=== PATIENT | female | born 1930 | race Caucasian/White ===

== ENCOUNTER 2019-12-30 01:41 | Inpatient (IN) | payer OTHER ==
--- NOTE | 2019-12-30 01:48 | PDOC ---
Attending Attestation - Resident Resident Name: Samuel Winslow - ED Attending Attestation I have performed the following: I have examined & evaluated the patient, The case was reviewed & discussed with the resident, I agree w/resident's findings & plan - HPI HPI: 12/30/19 02:09 Pt fell in her apartment and she was found by daughter, who has cameras in mom's home. Pt has no complaints. She states that she has dizziness in her head. She has no headache and no pain and no weakness - Physicial Exam PE: 12/30/19 02:10 Afebrile Following commands Heart [id number] Lungs CTAB abd soft NT ND +BS no flank pain ext: no C/C/E neuro weak thoughout, but equally so - Medical Decision Making 12/30/19 02:14 Patient Name: CECE POE THIS IS A PRELIMINARY REPORT DATE OF SERVICE: 2019-12-30 01:49:12 IMAGES: 205 EXAM: HEAD CT (STROKE) HISTORY: Rule out CVA COMPARISON: None. FINDINGS: The ventricular system is midline and nondilated. There is mild cortical atrophy and small vessel ischemic disease There is no bleed, mass, extra-axial fluid collection or mass effect. No skull fracture or skull lesion is identified. The visualized paranasal sinuses and mastoid air cells are clear. IMPRESSION: No evidence of acute pathology. 12/30/19 02:15 Patient Name: CECE POE THIS IS A PRELIMINARY REPORT DATE OF SERVICE: 2019-12-30 01:53:25 IMAGES: 225 EXAM: CERVICAL SPINE CT W/O CONTR HISTORY: Trauma COMPARISON: None. FINDINGS: There is no fracture, subluxation, prevertebral soft tissue swelling. There are moderate degenerative changes and dextroscoliosis.. The lung apices are clear. IMPRESSION: No fracture. 12/30/19 06:27 Trop is elevated; but pt has no chest pain. normal EKG; she has q waves in V5V6 and she has no other abnormalities. We will treat with asa; no need for beta fahad as pt has normal HR and BP. We will not anticoagulate. NIH Stroke Scale - Last Known Well Date/Time & Onset Date Last Known Well: 12/30/19 Time Last Known Well: 08:00 - Initial Evaluation Level of consciousness: Alert Ask patient the month and their age: Answers one correctly Ask patient to open & close eyes; make fist and let go: Obeys both correctly Best gaze (horizontal eye movement): Normal Visual field testing: No visual field loss Facial paresis (Show teeth/raise eyebrows/close eyes tight): Normal symmetrical movement Motor Function: Left Arm: Normal Motor Function: Right Arm: Normal (extends arm 90 (or 45) degrees for 10 seconds without drift Motor Function: Left Leg: Some effort against gravity Motor Function: Right Leg: Some effort against gravity Limb Ataxia: No ataxia Sensory(Use pinprick test arms,legs,trunk,face/side to side): Normal Best language (Describe picture, name items, read sentences): No Aphasia Dysarthria (read several words): Normal articulation Extinction and Inattention: No abnormality - Total Score NIH Stroke Scale Score: 5 Discharge - Discharge Information Problems reviewed: Yes Clinical Impression/Diagnosis: Weakness, Syncope Fall Qualifiers: Encounter type: initial encounter Qualified Code(s): W19.XXXA - Unspecified fall, initial encounter Condition: Guarded - Follow up/Referral - Patient Discharge Instructions - Post Discharge Activity
[2019-12-30] MEDS ORDERED: ACETAMINOPHEN 1000 MG/100 ML VIAL (NON FORMULARY) IVPB ONE (02:09)
--- NOTE | 2019-12-30 02:09 | PDOC ---
History of Present Illness - General Stated Complaint: R/O STROKE Time Seen by Provider: 12/30/19 01:47 History Source: Patient, Old Records Exam Limitations: No Limitations - History of Present Illness Initial Comments: 12/30/19 02:08 Rosalba Rachel is an 89F withP PMH HTN, NIDDM, CAD s/p stenting, presenting with fall and prolonged time down. patient lives alone and ambulates with walker, highly independent has video camera in home so family can monitor daughter noticed that patient fell around 5PM after coming out from bathroom down for ~5-6 hours since then per EMS patient found down with R-sided weakness and hypertensive to SBP 180s confused patient does not remember event but reports she feels nauseated and legs weak reports PMH HTN and NIDDM denies chest pain, SOB, abd pain, urinary sx no LIMA, vision changes, neck pain R knee hurts NIH Stroke Scale - Last Known Well Date/Time & Onset Date Last Known Well: 12/29/19 Time Last Known Well: 17:00 - Initial Evaluation Level of consciousness: Alert Ask patient the month and their age: Answers both correctly Ask patient to open & close eyes; make fist and let go: Obeys both correctly Best gaze (horizontal eye movement): Normal Visual field testing: No visual field loss Facial paresis (Show teeth/raise eyebrows/close eyes tight): Normal symmetrical movement Motor Function: Left Arm: Normal Motor Function: Right Arm: Normal (extends arm 90 (or 45) degrees for 10 seconds without drift Motor Function: Left Leg: Normal (extends leg 30 degrees for 5 seconds without drift) Motor Function: Right Leg: Normal (extends leg 30 degrees for 5 seconds without drift) Limb Ataxia: No ataxia Sensory(Use pinprick test arms,legs,trunk,face/side to side): Normal Best language (Describe picture, name items, read sentences): No Aphasia Dysarthria (read several words): Normal articulation Extinction and Inattention: No abnormality - Total Score NIH Stroke Scale Score: 0 Past History - Medical History Allergies/Adverse Reactions: Allergies Allergy/AdvReac Type Severity Reaction Status Date / Time Penicillins Allergy itching Verified 12/30/19 02:10 hives Home Medications: Ambulatory Orders Atorvastatin Ca [Lipitor] 40 mg PO HS #0 tablet 04/03/13 Calcium Carbonate/Vitamin D3 [Oyst-Bebo-D 500 mg Tablet] 1 each PO BID #0 tablet 04/03/13 Clopidogrel Bisulfate [Plavix -] 75 mg PO DAILY #0 tablet 04/03/13 Diclofenac Sodium [Voltaren] 100 gm TP BID #0 gel..gram. 04/03/13 Glimepiride 4 mg PO DAILY #0 tablet 04/03/13 Lisinopril [Prinivil] 10 mg PO DAILY #0 tablet 04/03/13 Meloxicam [Mobic -] 15 mg PO DAILY #0 tablet 04/03/13 Olopatadine HCl [Pataday] 1 drop OU DAILY #0 drops 04/03/13 Omeprazole [Prilosec (RX)] 20 mg PO DAILY #0 capsule.dr 04/03/13 Ranolazine [Ranexa] 500 mg PO BID #0 tab.er.12h 04/03/13 Saxagliptin HCl/Metformin HCl [Kombiglyze Xr 5-1,000 mg Tab] 1 each PO DAILY #0 tbmp.24hr 04/03/13 Cancer: Yes Cardiac Disorders: Yes Diabetes: Yes HTN: Yes Hypercholesterolemia: Yes - Surgical History Cholecystectomy: Yes - Psycho-Social/Smoking History Smoking Status: No Smoking History: Unknown if ever smoked Number of Cigarettes Smoked Daily: 0 Review of Systems - Review of Systems Able to Perform ROS?: Yes Constitutional: Yes: Weakness HEENTM: No: Symptoms Reported Respiratory: No: Symptoms reported Cardiac (ROS): Yes: Syncope. No: Chest Pain, Lightheadedness, Palpitations ABD/GI: Yes: Nausea, Poor Appetite, Poor Fluid Intake. No: Constipated, Diarrhea, Vomiting : No: Symptoms Reported Musculoskeletal: Yes: Joint Pain, Muscle Weakness. No: Back Pain Integumentary: No: Bruising, Flushing, Lesions, Lumps Neurological: Yes: Weakness, Dizziness. No: Headache, Numbness, Paresthesia Endocrine: No: Symptoms Reported Hematologic/Lymphatic: No: Symptoms Reported All Other Systems: Reviewed and Negative *Physical Exam - Physical Exam General Appearance: Yes: Nourished, Appropriately Dressed, Obese, Other (resting in bed, responsive to commands, in NAD). No: Apparent Distress HEENT: positive: EOMI, FRANK, Normal Voice, Symmetrical, Pharynx Normal, Hearing Grossly Normal. negative: Scleral Icterus (R), Scleral Icterus (L), Pharyngeal Erythema, Tonsillar Exudate, Tonsillar Erythema Neck: positive: Normal Thyroid, Supple. negative: Tender, Rigid, Lymphadenopathy (R), Lymphadenopathy (L), Tender lateral, Tender midline Respiratory/Chest: positive: Lungs Clear, Normal Breath Sounds. negative: Chest Tender, Respiratory Distress, Accessory Muscle Use, Crackles, Rales, Rhonchi, Stridor, Wheezing Cardiovascular: positive: Regular Rhythm, Regular Rate. negative: Murmur Gastrointestinal/Abdominal: positive: Normal Bowel Sounds, Flat, Soft. negative: Tender, Organomegaly, Pulsatile Mass, Distended, Guarding, Rebound, Tenderness Musculoskeletal: positive: Normal Inspection. negative: CVA Tenderness, Decreased Range of Motion, Vertebral Tenderness Extremity: positive: Normal Capillary Refill, Normal Inspection, Normal Range of Motion, Pelvis Stable. negative: Tender, Pedal Edema, Swelling, Calf Tenderness Integumentary: positive: Normal Color, Dry, Warm Neurologic: positive: supervisor assembly and packing II-XII NML intact, Fully Oriented, Alert, Normal Mood/Affect, Normal Response, Finger to Nose (normal). negative: Motor Strength 5/5 (BLE: 4/5 strength at hip flexors, 5/5 knees and ankles, sensation intact to LT, full ROM. BUE: sensation intact to LT, motor 5/5, full ROM), Facial Droop, Sensory Deficit, Confused, Disoriented ED Treatment Course - LABORATORY CBC & Chemistry Diagram: 12/30/19 11:13 12/30/19 11:13 - RADIOLOGY Radiology Studies Ordered: Category Date Time Status HEAD CT (STROKE) [CT] Stat CT Scan 12/30/19 01:47 Taken Radiograph Interpretation: 12/30/19 02:33 EXAM: HEAD CT (STROKE) HISTORY: Rule out CVA COMPARISON: None. FINDINGS: The ventricular system is midline and nondilated. There is mild c ortical atrophy and small vessel ischemic disease There is no bleed, mass, extra-axial fluid collect ion or mass effect. No skull fracture or skull lesion is identified. The visualized paranasal sinuse s and mastoid air cells are clear. IMPRESSION: No evidence of acute pathology. EXAM: CERVICAL SPINE CT W/O CONTR HISTORY: Trauma COMPARISON: None. FINDINGS: There is no fracture, subluxation, prevertebral soft tissue swelling. There are moderate degenerative changes and dextroscoliosis.. The lung apices are clear. IMPRESSION: No fracture. Medical Decision Making - Medical Decision Making 12/30/19 02:12 Patient presents with weakness and fall, concern for CVA given PMH and exam. Code [place] initiated, patient brought to CT for CT head and c-spine. Initial NIHSS = 0. Getting CVA labs, placing on quality assurance monitor, BGM. Likely has infectious etiology vs. ACS vs. CVA as source of weakness and dizziness, evaluating broadly Will ultimately need admission for syncopal episode and fall with prolonged time down. 12/30/19 03:58 ECG NSR with LAFB, Hr 90, QTc 455, no YENY/D or TWI. CXR no acute process. Labs notable for: - WBC 10.8 - CK 525 consistent with time down - UA +protein/blood/ketones - trop 4.46, concerning for NSTEMI vs. demand ischemia Discussed case with CONCILIATOR Abdiel, pending CXR and covid-19, but accepts for tele admit for syncope under Dr. Coon. Discharge - Discharge Information Problems reviewed: Yes Clinical Impression/Diagnosis: Weakness Fall Qualifiers: Encounter type: initial encounter Qualified Code(s): W19.XXXA - Unspecified fall, initial encounter Syncope Qualifiers: Syncope type: unspecified Qualified Code(s): R55 - Syncope and collapse Condition: Guarded - Admission Yes - Follow up/Referral - Patient Discharge Instructions - Post Discharge Activity
[2019-12-30 02:38] LABS: BASO % 0.6 % (0-2.0); HEMOGLOBIN 16.2 GM/dL (10.7-15.3); LYMPH % 5.9 % (8-40); MCH 29.6 pg (25.7-33.7); MCHC 33.7 g/dl (32.0-36.0); MEAN CELL VOLUME 87.9 fl (80-96); MEAN PLT VOLUME 9.5 fl (7.5-11.1); MONO % 11.7 % (3.8-10.2); NEUT % 81.8 % (42.8-82.8); PLATELET COUNT 250 K/MM3 (134-434); RBC 5.46 M/mm3 (3.60-5.2); RDW 15.2 % (11.6-15.6); WHITE BLOOD COUNT 10.8 K/mm3 (4.0-10.0)
[2019-12-30] MEDS ORDERED: ACETAMINOPHEN INJECTION 100 ML IVPB ONE (02:38)
[2019-12-30 02:46] LABS: INR 1.03 (0.83-1.09); PROTHROMBIN TIME (PATIENT) 12.1 SEC (9.7-13.0)
[2019-12-30 02:49] LABS: ACTIVATED PTT 31.6 SECONDS (25.2-36.5)
[2019-12-30 02:53] LABS: EPI CELLS 10 /uL (0-25.1); HYALINE CASTS 2 /uL (0-3.1); URINE APPEARANCE CLEAR; URINE BACTERIA 1 /uL (0-1359); URINE BILIRUBIN NEGATIVE (NEGATIVE); URINE COLOR YELLOW; URINE GLUCOSE (UA) 1+ (NEGATIVE); URINE KETONE 1+ (NEGATIVE); URINE LEUK ESTERASE NEGATIVE (NEGATIVE); URINE NITRITE NEGATIVE (NEGATIVE); URINE PROTEIN 2+ (NEGATIVE); URINE RBC 2 /uL (0-23.9); URINE UROBILINOGEN 0.2 mg/dL (0.2-1.0); URINE WBC 1 /uL (0-25.8)
[2019-12-30 02:59] LABS: ALBUMIN 3.8 g/dl (3.4-5.0); BILIRUBIN,TOTAL 0.4 mg/dL (0.2-1); CALCIUM 8.9 mg/dL (8.5-10.1); CREATININE 0.9 mg/dL (0.55-1.3); TOT PROT 7.6 g/dl (6.4-8.2)
--- NOTE | 2019-12-30 03:54 | HP ---
Admitting History and Physical - Primary Care Physician PCP: Donell Plummer - Admission Chief Complaint: Syncope, Fall History of Present Illness: This is a 89 y/o female with a significant past medical history of HTN, CAD s/p stents, NIDDM, Renal Calculi, OA. Who presents to the ED via ambulance for syncope, s/p fall at home. Patient's daughter was at bedside reports that the patient lives [place] and ambulates with a walker was noted to be on the floor at home via video monitor. The daughter called 911 to have her mother brought in for evaluation. Per the daughter the patient does not recall how she ended up on the floor, but reports having right temporal headache and right knee pain. Per the daughter, patient denies lightheadedness, numbness, CP, palpitations, SOB, fever, chills, cough, AP, N/V/D, constipation, melena, hematochezia, dysuria. Sh e denies patient having sick contacts or recent travel. History Source: Patient, Family Member Limitations to Obtaining History: Language Barrier (Uzbek) - Past Medical History Cardiovascular: Yes: CAD, HTN Renal/: Yes: Renal Calculi ...: No Musculoskeletal: Yes: Osteoarthritis Endocrine: Yes: Diabetes Mellitus - Past Surgical History Past Surgical History: Yes: Cholecystectomy, , Stent Additional Past Surgical History: Lithotripsy - Smoking History Smoking history: Never smoked Aproximately how many cigarettes per day: 0 - Alcohol/Substance Use Hx Alcohol Use: No History of Substance Use: reports: None - Social History Usual Living Arrangement: Yes: Alone ADL: Independent (ambulates w/walker) History of Recent Travel: No Home Medications - Allergies Allergies/Adverse Reactions: Allergies Allergy/AdvReac Type Severity Reaction Status Date / Time Penicillins Allergy itching Verified 12/30/19 02:10 hives - Home Medications Home Medications: Ambulatory Orders Atorvastatin Ca [Lipitor] 40 mg PO HS #0 tablet 04/03/13 Calcium Carbonate/Vitamin D3 [Oyst-Bebo-D 500 mg Tablet] 1 each PO BID #0 tablet 04/03/13 Clopidogrel Bisulfate [Plavix -] 75 mg PO DAILY #0 tablet 04/03/13 Diclofenac Sodium [Voltaren] 100 gm TP BID #0 gel..gram. 04/03/13 Glimepiride 4 mg PO DAILY #0 tablet 04/03/13 Lisinopril [Prinivil] 10 mg PO DAILY #0 tablet 04/03/13 Meloxicam [Mobic -] 15 mg PO DAILY #0 tablet 04/03/13 Olopatadine HCl [Pataday] 1 drop OU DAILY #0 drops 04/03/13 Omeprazole [Prilosec (RX)] 20 mg PO DAILY #0 capsule.dr 04/03/13 Ranolazine [Ranexa] 500 mg PO BID #0 tab.er.12h 04/03/13 Saxagliptin HCl/Metformin HCl [Kombiglyze Xr 5-1,000 mg Tab] 1 each PO DAILY #0 tbmp.24hr 04/03/13 Unobtainable Home Med List 0 dose .ROUTE UTDICT #0 04/03/13 levoFLOXacin [Levaquin -] 250 mg PO DAILY #7 tablet 04/03/13 Home Medications (free text): Metformin 500mg po BID. Januvia 50mg po QD. Atorvastatin 40mg po QD. Senna 8.6mg po QD. Ferrous Sulfate 325mg po QD. medications verified with pt's daughter Family Medical History Family History: Unremarkable Review of Systems - Review of Systems Constitutional: reports: No Symptoms Eyes: reports: No Symptoms HENT: reports: No Symptoms Neck: reports: No Symptoms Cardiovascular: reports: No Symptoms Respiratory: reports: No Symptoms Gastrointestinal: reports: No Symptoms Genitourinary: reports: No Symptoms Breasts: reports: No Symptoms Reported Musculoskeletal: reports: Joint Pain (right knee) Integumentary: reports: No Symptoms Neurological: reports: Headache, Syncope, Unsteady Gait Endocrine: reports: No Symptoms Hematology/Lymphatic: reports: No Symptoms Psychiatric: reports: No Symptoms Pain Intensity: 6 Physical Examination Vital Signs: Vital Signs Temperature 98.6 F 12/30/19 02:06 Pulse Rate 93 H 12/30/19 02:06 Respiratory Rate 20 12/30/19 02:06 Blood Pressure 118/56 L 12/30/19 02:06 O2 Sat by Pulse Oximetry (%) 95 12/30/19 02:06 Constitutional: Yes: Well Nourished, No Distress, Calm, Obese Eyes: Yes: WNL, Conjunctiva Clear, EOM Intact, PERRL HENT: Yes: WNL, Atraumatic, Normocephalic Neck: Yes: WNL, Supple, Trachea Midline Cardiovascular: Yes: Regular Rate and Rhythm, S1, S2 Respiratory: Yes: WNL, Regular, CTA Bilaterally Gastrointestinal: Yes: WNL, Normal Bowel Sounds, Soft, Abdomen, Obese ...Rectal Exam: Yes: Deferred Renal/: Yes: WNL Breast(s): Yes: WNL Musculoskeletal: Yes: Other (right knee pain) Extremities: Yes: WNL Edema: No Peripheral Pulses WNL: Yes Neurological: Yes: Alert, Oriented, Cran Nerves II-XII Intact ...Motor Strength: WNL Psychiatric: Yes: WNL, Alert, Oriented Labs: CBC, BMP 12/30/19 02:15 12/30/19 02:15 Laboratory Results - last 24 hr 12/30/19 12/30/19 12/30/19 02:15 02:15 02:15 WBC 10.8 H RBC 5.46 H Hgb 16.2 H Hct 48.0 H D MCV 87.9 MCH 29.6 MCHC 33.7 RDW 15.2 Plt Count 250 MPV 9.5 Absolute Neuts (auto) 8.9 H Neutrophils % 81.8 Lymphocytes % 5.9 L D Monocytes % 11.7 H D Eosinophils % 0.0 D Basophils % 0.6 Nucleated RBC % 0 PT with INR 12.10 INR 1.03 PTT (Actin FS) 31.6 Sodium Potassium Chloride Carbon Dioxide Anion Gap BUN Creatinine Est GFR (CKD-EPI)AfAm Est GFR (CKD-EPI)NonAf Random Glucose Lactic Acid Calcium Total Bilirubin AST ALT Alkaline Phosphatase Creatine Kinase Creatine Kinase Index CK-MB (CK-2) Troponin I Total Protein Albumin Triglycerides Cancelled Cholesterol Cancelled Total LDL Cholesterol Cancelled HDL Cholesterol Cancelled Urine Color Urine Appearance Urine pH Ur Specific Hardy Urine Protein Urine Glucose (UA) Urine Ketones Urine Blood Urine Nitrite Urine Bilirubin Urine Urobilinogen Ur Leukocyte Esterase Urine WBC (Auto) Urine RBC (Auto) Urine Casts (Auto) U Epithel Cells (Auto) Urine Bacteria (Auto) Blood Type Antibody Screen 12/30/19 12/30/19 12/30/19 02:15 02:15 02:15 WBC RBC Hgb Hct MCV MCH MCHC RDW Plt Count MPV Absolute Neuts (auto) Neutrophils % Lymphocytes % Monocytes % Eosinophils % Basophils % Nucleated RBC % PT with INR INR PTT (Actin FS) Sodium 135 L Potassium 4.0 Chloride 102 Carbon Dioxide 24 Anion Gap 9 BUN 17.0 Creatinine 0.9 Est GFR (CKD-EPI)AfAm 66.63 Est GFR (CKD-EPI)NonAf 57.49 Random Glucose 278 H Lactic Acid 1.9 Calcium 8.9 Total Bilirubin 0.4 AST 39 H ALT 20 Alkaline Phosphatase 132 H Creatine Kinase 525 H Creatine Kinase Index 2.5 CK-MB (CK-2) 13.6 H Troponin I 4.46 H* Total Protein 7.6 Albumin 3.8 Triglycerides 122 Cholesterol 157 Total LDL Cholesterol 84 HDL Cholesterol 64 H Urine Color Urine Appearance Urine pH Ur Specific Hardy Urine Protein Urine Glucose (UA) Urine Ketones Urine Blood Urine Nitrite Urine Bilirubin Urine Urobilinogen Ur Leukocyte Esterase Urine WBC (Auto) Urine RBC (Auto) Urine Casts (Auto) U Epithel Cells (Auto) Urine Bacteria (Auto) Blood Type A POSITIVE Antibody Screen Negative 12/30/19 02:36 WBC RBC Hgb Hct MCV MCH MCHC RDW Plt Count MPV Absolute Neuts (auto) Neutrophils % Lymphocytes % Monocytes % Eosinophils % Basophils % Nucleated RBC % PT with INR INR PTT (Actin FS) Sodium Potassium Chloride Carbon Dioxide Anion Gap BUN Creatinine Est GFR (CKD-EPI)AfAm Est GFR (CKD-EPI)NonAf Random Glucose Lactic Acid Calcium Total Bilirubin AST ALT Alkaline Phosphatase Creatine Kinase Creatine Kinase Index CK-MB (CK-2) Troponin I Total Protein Albumin Triglycerides Cholesterol Total LDL Cholesterol HDL Cholesterol Urine Color Yellow Urine Appearance Clear Urine pH 5.0 Ur Specific Hardy 1.023 Urine Protein 2+ H Urine Glucose (UA) 1+ H Urine Ketones 1+ H Urine Blood Negative Urine Nitrite Negative Urine Bilirubin Negative Urine Urobilinogen 0.2 Ur Leukocyte Esterase Negative Urine WBC (Auto) 1 Urine RBC (Auto) 2 Urine Casts (Auto) 2 U Epithel Cells (Auto) 10 Urine Bacteria (Auto) 1 Blood Type Antibody Screen Imaging - Results Chest X-ray: Pending X-ray: Pending (Right Knee) Cat Scan: Image Reviewed EKG: Image Reviewed Problem List - Problems (1) Syncope Assessment/Plan: Likely secondary to arrhythmia Head CT- neg ICH Cardiac monitoring Appreciate Cardiology consult Serial Enzymes elevated x1, likely secondary to rhabdo vs ACS, will trend Carotid Doppler r/o Stenosis Neuro checks Monitor CBC, CMP Check Mg Fall Precautions Code(s): R55 - SYNCOPE AND COLLAPSE (2) Elevated troponin Assessment/Plan: r/o ACS vs Rhabdomyolosis Continue cardiac monitoring Cardiology consult Serial Enzymes EKG reviewed Chest Xray-pending Asa given in ED, will continue Lipitor Code(s): R79.89 - OTHER SPECIFIED ABNORMAL FINDINGS OF BLOOD CHEMISTRY (3) Rhabdomyolysis Assessment/Plan: Likely secondary to fall Gentle IVF Serial Enzymes Cardiology consult EKG reviewed Continue cardiac monitoring Code(s): M62.82 - RHABDOMYOLYSIS (4) Fall Assessment/Plan: r/o arrhythmia vs mechanical C Spine CT- neg fx Head CT- neg ICH Right Knee Xray- pending Fall Precautions PT eval Monitor vitals Monitor CBC, CMP Code(s): W19.XXXA - UNSPECIFIED FALL, INITIAL ENCOUNTER Qualifiers: Encounter type: initial encounter Qualified Code(s): W19.XXXA - Unspecified fall, initial encounter (5) Right knee pain Assessment/Plan: see above Code(s): M25.561 - PAIN IN RIGHT KNEE (6) CAD (coronary artery disease) Assessment/Plan: s/p Stents Continue Asa, Lipitor EKG- reviewed Code(s): I25.10 - ATHSCL HEART DISEASE OF [place] CORONARY ARTERY W/O ANG PCTRS (7) HTN (hypertension) Assessment/Plan: stable No current home med Monitor BP Low Na Diet Code(s): I10 - ESSENTIAL (PRIMARY) HYPERTENSION (8) Diabetes mellitus Assessment/Plan: stable BGMs ISS Hold Metformin for now Monitor CMP HgbA1c in am Code(s): E11.9 - TYPE 2 DIABETES MELLITUS WITHOUT COMPLICATIONS (9) Osteoarthritis Assessment/Plan: Stable Tylenol prn Code(s): M19.90 - UNSPECIFIED OSTEOARTHRITIS, UNSPECIFIED SITE (10) Encounter for screening laboratory testing for COVID-19 virus Assessment/Plan: Low Risk COVID PCR-pending Isolation Precautions Code(s): Z11.59 - ENCOUNTER FOR SCREENING FOR OTHER VIRAL DISEASES Assessment/Plan This is a 89 y/o female with a significant past medical history of HTN, CAD s/p stents, NIDDM, Renal Calculi, OA. Admitted to Telemetry for Syncope, Troponinemia, Rhabdomyolosis, s/p Fall for further evaluation of their emergent condition. Plan: See Problem List FEN PO fluids as tolerated Replete lytes prn Low Na, Diabetic Diet DVT ppx OOB SCDs Lovenox SQ Dispo: Requires Inpatient Care Visit type - Medication Review Med list reviewed for High Risk Meds patients 65 and older: Yes - Emergency Visit Emergency Visit: Yes ED Registration Date: 12/30/19 Care time: The patient presented to the Emergency Department on the above date and was hospitalized for further evaluation of their emergent condition. - New Patient This patient is new to me today: Yes Date on this admission: 12/30/19 - Critical Care Critical Care patient: No
[2019-12-30] MEDS ORDERED: SODIUM CHLORIDE 0.9% 500 ML INFUS.BAG IV ONE (03:59)
[2019-12-30] MEDS ORDERED: ASPIRIN 81 MG CHEWABLE TABLETS PO ONE (04:21)
[2019-12-30] MEDS ORDERED: ASPIRIN 81 MG CHEWABLE TABLETS ONE ×2 (04:27→11:08)
--- NOTE | 2019-12-30 04:31 | PDOC ---
*Physical Exam - Vital Signs Last Vital Signs Temp Pulse Resp BP Pulse Ox 98.6 F 93 H 20 118/56 L 95 12/30/19 02:06 12/30/19 02:06 12/30/19 02:06 12/30/19 02:06 12/30/19 02:06 ED Treatment Course - LABORATORY CBC & Chemistry Diagram: 12/30/19 02:15 12/30/19 02:15 - ADDITIONAL ORDERS Additional order review: Laboratory Results 12/30/19 12/30/19 12/30/19 02:36 02:15 02:15 PT with INR INR PTT (Actin FS) Sodium Potassium Chloride Carbon Dioxide Anion Gap BUN Creatinine Est GFR (CKD-EPI)AfAm Est GFR (CKD-EPI)NonAf Random Glucose Lactic Acid 1.9 Calcium Total Bilirubin AST ALT Alkaline Phosphatase Creatine Kinase Creatine Kinase Index CK-MB (CK-2) Troponin I Total Protein Albumin Triglycerides Cholesterol Total LDL Cholesterol HDL Cholesterol Urine Color Yellow Urine Appearance Clear Urine pH 5.0 Ur Specific [place] 1.023 Urine Protein 2+ H Urine Glucose (UA) 1+ H Urine Ketones 1+ H Urine Blood Negative Urine Nitrite Negative Urine Bilirubin Negative Urine Urobilinogen 0.2 Ur Leukocyte Esterase Negative Urine WBC (Auto) 1 Urine RBC (Auto) 2 Urine Casts (Auto) 2 U Epithel Cells (Auto) 10 Urine Bacteria (Auto) 1 Blood Type A POSITIVE Antibody Screen Negative 12/30/19 12/30/19 12/30/19 02:15 02:15 02:15 PT with INR 12.10 INR 1.03 PTT (Actin FS) 31.6 Sodium 135 L Potassium 4.0 Chloride 102 Carbon Dioxide 24 Anion Gap 9 BUN 17.0 Creatinine 0.9 Est GFR (CKD-EPI)AfAm 66.63 Est GFR (CKD-EPI)NonAf 57.49 Random Glucose 278 H Lactic Acid Calcium 8.9 Total Bilirubin 0.4 AST 39 H ALT 20 Alkaline Phosphatase 132 H Creatine Kinase 525 H Creatine Kinase Index 2.5 CK-MB (CK-2) 13.6 H Troponin I 4.46 H* Total Protein 7.6 Albumin 3.8 Triglycerides 122 Cancelled Cholesterol 157 Cancelled Total LDL Cholesterol 84 Cancelled HDL Cholesterol 64 H Cancelled Urine Color Urine Appearance Urine pH Ur Specific [place] Urine Protein Urine Glucose (UA) Urine Ketones Urine Blood Urine Nitrite Urine Bilirubin Urine Urobilinogen Ur Leukocyte Esterase Urine WBC (Auto) Urine RBC (Auto) Urine Casts (Auto) U Epithel Cells (Auto) Urine Bacteria (Auto) Blood Type Antibody Screen 12/30/19 02:15 RBC 5.46 H MCV 87.9 MCHC 33.7 RDW 15.2 MPV 9.5 Neutrophils % 81.8 Lymphocytes % 5.9 L D Monocytes % 11.7 H D Eosinophils % 0.0 D Basophils % 0.6 - RADIOLOGY Radiology Studies Ordered: Category Date Time Status CERVICAL SPINE CT W/O CONTR [CT] Stat CT Scan 12/30/19 01:53 Taken - Medications Given in the ED: ED Medications Discontinued Medications Generic Name Dose Route Start Last Admin Trade Name Freq PRN Reason Stop Dose Admin Acetaminophen 1,000 mg 12/30/19 02:09 12/30/19 02:42 Ofirmev Injection - IVPB 12/30/19 02:10 1,000 mg ONCE ONE Administration Sodium Chloride 500 ml 12/30/19 03:59 12/30/19 04:19 Normal Saline - IV 12/30/19 04:00 500 ml ONCE ONE Administration Medical Decision Making - Medical Decision Making Elevated tpn 4.46, 324mg ASA ordered Page placed to Dr. Fitzgerald, cardiology, regarding patient's abnormal lab value Discussed case with Dr. Thomason who will evaluate the patient 12/30/19 04:30 Discharge - Discharge Information Problems reviewed: Yes Clinical Impression/Diagnosis: Weakness, Syncope Fall Qualifiers: Encounter type: initial encounter Qualified Code(s): W19.XXXA - Unspecified fall, initial encounter Condition: Guarded - Follow up/Referral - Patient Discharge Instructions - Post Discharge Activity
[2019-12-30] MEDS ORDERED: HEPARIN NA (PORCINE) 5,000 UNITS/ML 1ML VIAL SQ SCH (10:15)
[2019-12-30] MEDS ORDERED: LISINOPRIL 10 MG TABLET PO SCH (10:15)
--- NOTE | 2019-12-30 10:15 | PN ---
Progress Note, Physician Chief Complaint: Syncope Fall Elevated troponin DM2 History of Present Illness: 89 year old female with history of CAD, DM2, HTN,HL, dementia?, previous history of cardiac stents post [place], came in to [facility] ER via EMS after she was found to be on the floor observed by her daughter on a video surveillance. Upon evaluation, pt is a x o 2, doesn't recall any events on how she ended up on the floor, is a poor historian. Seen by Cardiology in ER for syncope and elevated trops CK 525 Trops 4.46> 2.96>2.36 EKG (1st) sinus, lafb, anterolateral infarct, no acute st changes EKG (2nd) with new anterior TWI Started on Heparin drip Pt denies any chest pain, SOB, light headed ness or dizziness - Current Medication List Current Medications: Active Medications Aspirin (Asa -) 81 mg PO DAILY [facility] Atorvastatin Calcium (Lipitor -) 40 mg PO HS [facility] Calcium Carbonate/Cholecalciferol (Os-Bebo 500+D -) 1 tab PO BID [facility] Clopidogrel Bisulfate (Plavix -) 75 mg PO DAILY [facility] Lisinopril (Prinivil) 10 mg PO DAILY [facility] Ranolazine (Ranexa -) 500 mg PO BID [facility] - Objective Vital Signs: Vital Signs Temperature 97.9 F 12/30/19 09:23 Pulse Rate 74 12/30/19 09:23 Respiratory Rate 20 12/30/19 09:23 Blood Pressure 114/60 12/30/19 09:23 O2 Sat by Pulse Oximetry (%) 96 12/30/19 08:26 Constitutional: Yes: Well Nourished, No Distress, Calm Cardiovascular: Yes: Regular Rate and Rhythm Respiratory: Yes: Regular, CTA Bilaterally Gastrointestinal: Yes: Normal Bowel Sounds, Soft, Abdomen, Obese Genitourinary: Yes: WNL Musculoskeletal: Yes: Muscle Weakness Extremities: Yes: WNL Edema: No Peripheral Pulses WNL: Yes Neurological: Yes: Alert, Confusion Psychiatric: Yes: Alert Labs: CBC, BMP 12/30/19 02:15 12/30/19 02:15 INR, PTT INR 1.03 (0.83-1.09) 12/30/19 02:15 Problem List - Problems (1) Presence of stent in coronary artery in patient with coronary artery disease Assessment/Plan: -Continue plavix + ASA + Statin -Start Heparin drip Problems reviewed: Yes Code(s): I25.10 - ATHSCL HEART DISEASE OF [place] CORONARY ARTERY W/O ANG PCTRS; Z95.5 - PRESENCE OF CORONARY ANGIOPLASTY IMPLANT AND GRAFT (2) Diabetes mellitus Assessment/Plan: -Check A1c -BGM AC HS -ISS -Diabetic low sodium diet Problems reviewed: Yes Code(s): E11.9 - TYPE 2 DIABETES MELLITUS WITHOUT COMPLICATIONS (3) Elevated troponin Assessment/Plan: -Continue plavix + ASA + Statin -Start Heparin drip -Telemetry -CK 525/Trops 4.46> 2.96>2.36 -EKG (1st) sinus, lafb, anterolateral infarct, no acute st changes -EKG (2nd) with new anterior TWI -Echo -Decrease lisinopril to 5 mg po daily -Start Toprol XL at 25 mg po daily Problems reviewed: Yes Code(s): R79.89 - OTHER SPECIFIED ABNORMAL FINDINGS OF BLOOD CHEMISTRY (4) Fall Assessment/Plan: -safety precautions -Physical therapy -Check UA/UC Problems reviewed: Yes Code(s): W19.XXXA - UNSPECIFIED FALL, INITIAL ENCOUNTER Qualifiers: Encounter type: initial encounter Qualified Code(s): W19.XXXA - Unspecified fall, initial encounter (5) HTN (hypertension) Assessment/Plan: -Resume lisinopril at 5 mg po daily -Toprol 25 mg po daily Problems reviewed: Yes Code(s): I10 - ESSENTIAL (PRIMARY) HYPERTENSION Assessment/Plan See problem list
[2019-12-30] MEDS: CALCIUM 500MG/VIT-D 200 UNITS COMBO TABLET (FP) PO SCH ×2 (10:30→21:14)
[2019-12-30] MEDS: RANOLAZINE E.R. 500 MG TABLET (FP) PO SCH ×2 (10:30→21:14)
[2019-12-30] MEDS: CLOPIDOGREL BISULFATE 75 MG TABLET (FP) PO SCH (10:30)
[2019-12-30] MEDS ORDERED: HEPARIN NA (PORCINE) 5,000 UNITS/ML 1ML VIAL ONE ×2 (11:08→14:41)
[2019-12-30] MEDS ORDERED: HEPARIN NA (PORCINE) 5,000 UNITS/ML 1ML VIAL IVPUSH PRN ×2 (14:18)
[2019-12-30] MEDS ORDERED: HEPARIN INFUSION - 25,000 UNITS/500 ML INFUS.BAG IVPB ONE (14:42)
[2019-12-30] MEDS: HEPARIN INFUSION - 25,000 UNITS/500 ML INFUS.BAG IVPB SCH (14:57)
--- NOTE | 2019-12-30 15:56 | CON.CARD ---
Consult Consult Specialty:: cardiology Referred by:: lucila Reason for Consultation:: nstemi - History of Present Illness Chief Complaint: found on floor History of Present Illness: 89 year old female with a pmhx of dementia, htn, cad s/p stents 7-8 yrs ago at [facility], dm, and arthritis who was found on floor at home. As per daughter, patient lives alone but they have cameras set up and they noticed that the mother was on the floor so daughter called 911. Patient with no complaints. Does not recall event. Says she was sleeping than woke up at the hospital. Patient appears comfortable and is very pleasant but poor historian. No focal deficits. CTH no acute m/s/b. CXR no acute lung process. CK 500s Trops 4s EKG (1st) sinus, lafb, anterolateral infarct, no acute st changes EKG (2nd) with new anterior TWI - History Source History Provided By: Family Member, Medical Record - Past Medical History Cardio/Vascular: Yes: CAD, HTN Renal/: Yes: Renal Calculi ...: No Musculoskeletal: Yes: Osteoarthritis Endocrine: Yes: Diabetes Mellitus - Past Surgical History Past Surgical History: Yes: Cholecystectomy, , Stent - Alcohol/Substance Use Hx Alcohol Use: No History of Substance Use: reports: None - Smoking History Smoking history: Never smoked Aproximately how many cigarettes per day: 0 - Social History ADL: Independent (ambulates w/walker) History of Recent Travel: No Home Medications - Allergies Allergies/Adverse Reactions: Allergies Allergy/AdvReac Type Severity Reaction Status Date / Time Penicillins Allergy itching Verified 12/30/19 02:10 hives - Home Medications Home Medications: Ambulatory Orders Atorvastatin Ca [Lipitor] 40 mg PO HS #0 tablet 04/03/13 Calcium Carbonate/Vitamin D3 [Oyst-Bebo-D 500 mg Tablet] 1 each PO BID #0 tablet 04/03/13 Clopidogrel Bisulfate [Plavix -] 75 mg PO DAILY #0 tablet 04/03/13 Diclofenac Sodium [Voltaren] 100 gm TP BID #0 gel..gram. 04/03/13 Glimepiride 4 mg PO DAILY #0 tablet 04/03/13 Lisinopril [Prinivil] 10 mg PO DAILY #0 tablet 04/03/13 Meloxicam [Mobic -] 15 mg PO DAILY #0 tablet 04/03/13 Olopatadine HCl [Pataday] 1 drop OU DAILY #0 drops 04/03/13 Omeprazole [Prilosec (RX)] 20 mg PO DAILY #0 capsule. 04/03/13 Ranolazine [Ranexa] 500 mg PO BID #0 tab.er.12h 04/03/13 Saxagliptin HCl/Metformin HCl [Kombiglyze Xr 5-1,000 mg Tab] 1 each PO DAILY #0 tbmp.24hr 04/03/13 Vital Signs: Vital Signs Temperature 98.3 F 12/30/19 14:34 Pulse Rate 74 12/30/19 14:34 Respiratory Rate 18 12/30/19 14:34 Blood Pressure 111/74 12/30/19 14:34 O2 Sat by Pulse Oximetry (%) 99 12/30/19 14:34 Constitutional: Yes: No Distress Neck: Yes: WNL Respiratory: Yes: CTA Bilaterally Gastrointestinal: Yes: Soft Cardiovascular: Yes: Regular Rate and Rhythm JVD: No Carotid Bruit: No PMI: Non-Displaced Heart Sounds: Yes: S1, S2 Murmur: No: Systolic Murmur Edema: No - Other Data Labs, Other Data: CBC, BMP 12/30/19 02:15 12/30/19 02:15 INR, PTT INR 1.03 (0.83-1.09) 12/30/19 02:15 Troponin, BNP 12/30/19 12/30/19 02:15 11:13 Troponin I 4.46 H* 2.96 H* Troponin, BNP 12/30/19 12/30/19 02:15 11:13 Troponin I 4.46 H* 2.96 H* Imaging - Results Chest X-ray: Report Reviewed Cat Scan: Report Reviewed EKG: Image Reviewed Assessment/Plan 89 year old female with a pmhx of dementia, htn, cad s/p stents 7-8 yrs ago at [facility], dm, and arthritis who was found on floor at home. As per daughter, patient lives alone but they have cameras set up and they noticed that the mother was on the floor so daughter called 911. Patient with no complaints. Does not recall event. Says she was sleeping than woke up at the hospital. Patient appears comfortable and is very pleasant but poor historian. No focal deficits. CTH no acute m/s/b. CXR no acute lung process. CK 525 Trops 4s EKG (1st) sinus, lafb, anterolateral infarct, no acute st changes EKG (2nd) with new anterior TWI 1) NSTEMI -Patient with known CAD s/p stents 7-8yrs ago. Daughter does not known if she sees a dry paste supervisor but reports follows with Dr. Plummer. -cardiac enzyme elevated. EKG concerning for anterior ischemia but patient is with no complaints at this time. CT head no acute m/s/b and no focal deficits. Will treat with aspirin 81mg, plavix 75mg, and heparin drip with goal ptt 50-70 Not on beta fahad but if bp and hr allow would start low dose metoprolol. Admit to telemetry. Continue to trend CE's. Serial ekgs Plan for echocardiogram If chest pain or symptomatic will plan for cardiac cath. If no symptoms will further evaluate tomorrow given patients dementia and confusion will further discuss with family and Dr. Plummer whether or not to pursue a cardiac cath. Discussed patient with her daughter Carmita at length
[2019-12-30 17:16] LABS: HEMATOCRIT 47.1 % (32.4-45.2); HEMOGLOBIN 15.8 GM/dL (10.7-15.3); LYMPH % 14.5 % (8-40); MCH 29.6 pg (25.7-33.7); MCHC 33.5 g/dl (32.0-36.0); MEAN CELL VOLUME 88.5 fl (80-96); MEAN PLT VOLUME 9.6 fl (7.5-11.1); MONO % 13.4 % (3.8-10.2); NEUT % 71.1 % (42.8-82.8); PLATELET COUNT 233 K/MM3 (134-434); RBC 5.32 M/mm3 (3.60-5.2); RDW 15.6 % (11.6-15.6); WHITE BLOOD COUNT 8.3 K/mm3 (4.0-10.0)
[2019-12-30 17:38] LABS: ALBUMIN 3.4 g/dl (3.4-5.0); ALK PHOS 123 U/L (45-117); ANION GAP 9 MMOL/L (8-16); BILIRUBIN,TOTAL 0.4 mg/dL (0.2-1); BLOOD UREA NITROGEN 14.4 mg/dL (7-18); CALCIUM 8.7 mg/dL (8.5-10.1); CHLORIDE 104 mmol/L (98-107); CO2 24 mmol/L (21-32); CREATININE 0.8 mg/dL (0.55-1.3); GLUCOSE,RANDOM 206 mg/dL (74-106); POTASSIUM 4.4 mmol/L (3.5-5.1); SGOT/AST 40 U/L (15-37); SGPT/ALT 25 U/L (13-61); SODIUM 137 mmol/L (136-145); TOT PROT 7.1 g/dl (6.4-8.2)
[2019-12-30 18:13] VITALS: BMI 36.1
[2019-12-30] MEDS: ATORVASTATIN CA 40 MG TABLET (FP) PO SCH (21:14)
--- NOTE | 2019-12-31 07:40 | PN ---
Progress Note, Physician - Current Medication List Current Medications: Active Medications Aspirin (Asa -) 81 mg PO DAILY [facility] Atorvastatin Calcium (Lipitor -) 40 mg PO HS [facility] Last Admin: 12/30/19 21:14 Dose: 40 mg Documented by: Calcium Carbonate/Cholecalciferol (Os-Bebo 500+D -) 1 tab PO BID [facility] Last Admin: 12/30/19 21:14 Dose: 1 tab Documented by: Clopidogrel Bisulfate (Plavix -) 75 mg PO DAILY [facility] Last Admin: 12/30/19 10:30 Dose: 75 mg Documented by: Heparin Sodium (Porcine) (Heparin -) 1,000 unit IVPUSH PRN PRN PRN Reason: Heparin Heparin Sodium (Porcine) (Heparin -) 5,000 unit IVPUSH PRN PRN PRN Reason: Heparin Last Admin: 12/30/19 14:35 Dose: 5,000 unit Documented by: Heparin Sodium/Dextrose (Heparin Infusion -) 25,000 units in 500 mls @ 20 mls/hr IVPB TITR [facility]; Protocol Last Titration: 12/31/19 05:30 Dose: 600 units/hr, 12 mls/hr Documented by: Lisinopril (Prinivil) 5 mg PO DAILY [facility] Metoprolol Succinate (Toprol Xl -) 25 mg PO DAILY [facility] Ranolazine (Ranexa -) 500 mg PO BID [facility] Last Admin: 12/30/19 21:14 Dose: 500 mg Documented by: - Objective Vital Signs: Vital Signs Temperature 98.5 F 12/31/19 05:21 Pulse Rate 81 12/31/19 05:21 Respiratory Rate 20 12/31/19 05:21 Blood Pressure 112/57 L 12/31/19 05:21 O2 Sat by Pulse Oximetry (%) 94 L 12/31/19 05:21 Cardiovascular: Yes: S1, S2 Respiratory: Yes: Regular, CTA Bilaterally Gastrointestinal: Yes: Normal Bowel Sounds, Soft. No: Tenderness Neurological: Yes: Alert, Confusion Labs: CBC, BMP 12/30/19 11:13 12/30/19 11:13 INR, PTT INR 1.03 (0.83-1.09) 12/30/19 02:15 Assessment/Plan - Problems (1) Presence of stent in coronary artery in patient with coronary artery disease Assessment/Plan: -Continue plavix + ASA + Statin -Start Heparin drip Problems reviewed: Yes Code(s): I25.10 - ATHSCL HEART DISEASE OF [place] CORONARY ARTERY W/O ANG PCTRS; Z95.5 - PRESENCE OF CORONARY ANGIOPLASTY IMPLANT AND GRAFT (2) Diabetes mellitus Assessment/Plan: -Check A1c -BGM AC HS -ISS -Diabetic low sodium diet Problems reviewed: Yes Code(s): E11.9 - TYPE 2 DIABETES MELLITUS WITHOUT COMPLICATIONS (3) Elevated troponin Assessment/Plan: -Continue plavix + ASA + Statin -Start Heparin drip -Telemetry -CK 525/Trops 4.46> 2.96>2.36 -EKG (1st) sinus, lafb, anterolateral infarct, no acute st changes -EKG (2nd) with new anterior TWI -Echo -Decrease lisinopril to 5 mg po daily -Start Toprol XL at 25 mg po daily Problems reviewed: Yes Code(s): R79.89 - OTHER SPECIFIED ABNORMAL FINDINGS OF BLOOD CHEMISTRY (4) Fall Assessment/Plan: -safety precautions -Physical therapy -Check UA/UC Problems reviewed: Yes Code(s): W19.XXXA - UNSPECIFIED FALL, INITIAL ENCOUNTER Qualifiers: Encounter type: initial encounter Qualified Code(s): W19.XXXA - Unspecified fall, initial encounter (5) HTN (hypertension) Assessment/Plan: -Resume lisinopril at 5 mg po daily -Toprol 25 mg po daily Problems reviewed: Yes Code(s): I10 - ESSENTIAL (PRIMARY) HYPERTENSION
[2019-12-31] MEDS: CALCIUM 500MG/VIT-D 200 UNITS COMBO TABLET (FP) PO SCH ×2 (10:31→21:13)
[2019-12-31] MEDS: CLOPIDOGREL BISULFATE 75 MG TABLET (FP) PO SCH (10:31)
[2019-12-31] MEDS: ASPIRIN 81 MG CHEWABLE TABLETS PO SCH (10:31)
[2019-12-31] MEDS: metoPROLOL SUCCINATE 25 MG TAB.SR.24H (FP) PO SCH (10:31)
[2019-12-31] MEDS: RANOLAZINE E.R. 500 MG TABLET (FP) PO SCH ×2 (10:31→21:14)
[2019-12-31] MEDS: LISINOPRIL 5 MG TABLET PO SCH (10:32)
--- NOTE | 2019-12-31 10:44 | EKG ---
Test Reason : Blood Pressure : / mmHG Vent. Rate : 078 BPM Atrial Rate : 078 BPM P-R Int : 170 ms QRS Dur : 094 ms QT Int : 440 ms P-R-T Axes : 049 -79 234 degrees QTc Int : 501 ms NORMAL SINUS RHYTHM LEFT ANTERIOR FASCICULAR BLOCK POSSIBLE LATERAL INFARCT (CITED ON OR BEFORE 30-DEC-2019) CANNOT RULE OUT INFERIOR INFARCT , AGE UNDETERMINED T WAVE ABNORMALITY, CONSIDER ANTERIOR ISCHEMIA ABNORMAL ECG WHEN COMPARED WITH ECG OF 30-DEC-2019 02:50, T WAVE INVERSION IS SEEN Confirmed by JOSE MIGUEL BRADLEY, CHANTALE ([id number]) on 12/31/2019 10:44:22 AM Referred By: Kylee KING Confirmed By:CHANTALE GILLESPIE MD
--- NOTE | 2019-12-31 10:58 | EKG ---
Test Reason : Blood Pressure : / mmHG Vent. Rate : 090 BPM Atrial Rate : 090 BPM P-R Int : 154 ms QRS Dur : 108 ms QT Int : 372 ms P-R-T Axes : 043 -73 081 degrees QTc Int : 455 ms NORMAL SINUS RHYTHM LEFT ANTERIOR FASCICULAR BLOCK POSSIBLE ANTEROLATERAL INFARCT , AGE UNDETERMINED ABNORMAL ECG WHEN COMPARED WITH ECG OF 02-APR-2013 19:05, PREMATURE VENTRICULAR COMPLEXES ARE NO LONGER PRESENT T WAVE VARIATION Confirmed by CHANTALE GILLESPIE MD ([id number]) on 12/31/2019 10:57:58 AM Referred By: Confirmed By:CHANTALE GILLESPIE MD
--- NOTE | 2019-12-31 13:14 | ECHO ---
Name: CECE POE Exam:Adult Echocardiogram Study Date: 12/31/2019 11:48 AM Age: 89 yrs Reason For Study: Arrhythmia Height: 62 in Weight: 175 lb BSA: 1.8 m2 MMode/2D Measurements & Calculations IVSd: 0.93 cm Ao root diam: 2.0 cm LVIDd: 4.3 cm LA dimension: 3.0 cm LVIDs: 2.9 cm LVPWd: 1.00 cm EDV(Teich): 82.8 ml LVLd ap4: 6.0 cm ESV(Teich): 32.3 ml EDV(MOD-sp4): 73.0 ml LVLs ap4: 5.3 cm ESV(MOD-sp4): 32.0 ml SV(MOD-sp4): 41.0 ml LAV (MOD-bp): 23.0 ml TAPSE: 1.5 cm RV S Devon: 12.6 cm/sec Doppler Measurements & Calculations MV E max devon: 57.3 cm/sec Ao V2 max: 122.2 cm/sec MV A max devon: 94.8 cm/sec Ao max P.0 mmHg MV E/A: 0.60 Ao V2 mean: 76.6 cm/sec MV dec time: 0.31 sec Ao mean P.9 mmHg Ao V2 VTI: 17.8 cm LV V1 max P.2 mmHg PA V2 max: 75.4 cm/sec LV V1 mean P.6 mmHg PA max P.3 mmHg LV V1 max: 88.8 cm/sec LV V1 mean: 57.4 cm/sec LV V1 VTI: 15.4 cm Med Peak E' Devon: 4.0 cm/sec Med E/e': 14.3 Lat Peak E' Devon: 5.1 cm/sec Lat E/e': 11.3 Tech Comments TDS. Limited study due to body habitus and orientation of patient's heart. Restless and would not let me press. Modified PLAX/SAX windows obtained near/above subcostal window. Lithuanian only. Procedure Tecnically limited study. Left Ventricle The left ventricle is normal in size. Endocardial border definition could be visiualized on apical vi ews. LV contraction appears mild to moderately reduced with LVEF 40-45%. Grade I diastolic dysfunction, (abno rmal relaxation pattern). Ratio E/E'= 14. There is mild to moderate global hypokinesis of the left ventric le. Right Ventricle The right ventricle is normal size. The right ventricular systolic function is normal. RV systolic TI D is 13 cm/s. Atria The left atrial size is normal. Right atrial size is normal. Mitral Valve The mitral valve is normal in structure and function. There is mild mitral regurgitation. Tricuspid Valve The tricuspid valve is normal in structure and function. No tricuspid regurgitation. Aortic Valve There is mild aortic sclerosis.;. No aortic regurgitation is present. Pulmonic Valve The pulmonic valve is not well visualized. Great Vessels The aortic root is normal size. Pericardium/Pleura There is no pericardial effusion. Interpretation Summary Tecnically limited study The left ventricle is normal in size. Endocardial border definition could be visiualized on apical views. LV contraction appears mild to mo derately reduced with LVEF 40-45%. There is mild to moderate global hypokinesis of the left ventricle. Grade I diastolic dysfunction, (abnormal relaxation pattern). Ratio E/E'= 14 The right ventricular systolic function is normal. The left atrial size is normal. Right atrial size is normal. There is mild mitral regurgitation. There is mild aortic sclerosis. There is no pericardial effusion. Peter Ruiz MD 12/31/2019 01:13 PM
[2019-12-31 13:25] LABS: ALBUMIN 3.1 g/dl (3.4-5.0); BILIRUBIN,TOTAL 0.5 mg/dL (0.2-1); BLOOD UREA NITROGEN 14.4 mg/dL (7-18); CALCIUM 8.4 mg/dL (8.5-10.1); CREATININE 0.8 mg/dL (0.55-1.3); TOT PROT 6.5 g/dl (6.4-8.2)
--- NOTE | 2019-12-31 14:04 | PN ---
Progress Note, Physician Chief Complaint: The patient appears comfortable at the time of exam. She denies chest pain, shortness of breath, palpitation or dizziness. Telemetry reviewed, it showed sinus rhythm rare single VPCs. History of Present Illness: 89 year old female with a PMHx of dementia, HTN, DM, CAD s/p stents 7-8 yrs ago at [facility], and arthritis who was found on floor at home. Patient with no complaints. Does not recall event. Patient appears comfortable and is very pleasant but poor historian. CTH no acute m/s/b. CXR no acute lung process. CK 525 Trops was elevated, trending down now: 2.96->2.36->2.11 EKG (1st) sinus, lafb, anterolateral infarct, no acute st changes EKG (2nd) with new anterior TWI. Echo 12/31/2019: Normal LV size with mild to moderate global LV hypokinesis. LVEF 40-45%. Normal RV. Normal LA and RA in size. Mild MR. COVID 19 swab positive 12/30/19. - Current Medication List Current Medications: Active Medications Aspirin (Asa -) 81 mg PO DAILY [facility] Last Admin: 12/31/19 10:31 Dose: 81 mg Documented by: Atorvastatin Calcium (Lipitor -) 40 mg PO HS [facility] Last Admin: 12/30/19 21:14 Dose: 40 mg Documented by: Calcium Carbonate/Cholecalciferol (Os-Bebo 500+D -) 1 tab PO BID [facility] Last Admin: 12/31/19 10:31 Dose: 1 tab Documented by: Clopidogrel Bisulfate (Plavix -) 75 mg PO DAILY [facility] Last Admin: 12/31/19 10:31 Dose: 75 mg Documented by: Heparin Sodium (Porcine) (Heparin -) 1,000 unit IVPUSH PRN PRN PRN Reason: Heparin Heparin Sodium (Porcine) (Heparin -) 5,000 unit IVPUSH PRN PRN PRN Reason: Heparin Last Admin: 12/30/19 14:35 Dose: 5,000 unit Documented by: Heparin Sodium/Dextrose (Heparin Infusion -) 25,000 units in 500 mls @ 20 mls/hr IVPB TITR [facility]; Protocol Last Titration: 12/31/19 05:30 Dose: 600 units/hr, 12 mls/hr Documented by: Lisinopril (Prinivil) 5 mg PO DAILY [facility] Last Admin: 12/31/19 10:32 Dose: 5 mg Documented by: Metoprolol Succinate (Toprol Xl -) 25 mg PO DAILY [facility] Last Admin: 12/31/19 10:31 Dose: 25 mg Documented by: Ranolazine (Ranexa -) 500 mg PO BID [facility] Last Admin: 12/31/19 10:31 Dose: 500 mg Documented by: - Objective Vital Signs: Vital Signs Temperature 98.1 F 12/31/19 10:00 Pulse Rate 83 12/31/19 10:00 Respiratory Rate 12/31/19 10:00 Blood Pressure 105/48 L 12/31/19 10:00 O2 Sat by Pulse Oximetry (%) 93 L 12/31/19 10:00 General: Well developed. Obese. No acute distress. Head: Normocephalic. Atraumatic, Eyes: PERRLA, EOMI. Sclerae anicteric. Conjunctivae clear. Neck: Supple. No JVD. No bruits. Heart: Normal S1, S2: Regular rhythm and rate. No murmur. No gallop or rub. Lungs: Symmetrical air entry. Clear to auscultation. No crackles. No wheezing or rhonchi. Abdomen: Soft. Bowel sound positive. Non tender. No masses. Extremities: No edema. No clubbing or cyanosis. PD 2+, equal bilaterally. Neuro: Intact, no focal findings. AAO X3. Labs: CBC, BMP 12/30/19 11:13 12/31/19 11:30 INR, PTT INR 1.03 (0.83-1.09) 12/30/19 02:15 Assessment/Plan 89 year old female with a PMHx of dementia, HTN, DM, CAD s/p stents 7-8 yrs ago at [facility], and arthritis who was found on floor at home. Patient with no complaints. Does not recall event. Patient appears comfortable and is very pleasant but poor historian. CTH no acute m/s/b. CXR no acute lung process. CK 525 Trops was elevated, trending down now: 2.96->2.36->2.11 EKG (1st) sinus, lafb, anterolateral infarct, no acute st changes EKG (2nd) with new anterior TWI. Echo 12/31/2019: Normal LV size with mild to moderate global LV hypokinesis. LVEF 40-45%. Normal RV. Normal LA and RA in size. Mild MR. COVID 19 swab positive 12/30/19. 1) NSTEMI -Patient with known CAD s/p stents 7-8yrs ago. Daughter does not known if she sees a timber robber but reports follows with Dr. Plummer. -Cardiac enzyme elevated with ECG evidence of anterior wall ischemia. -Toponin is trending down now. Patient has no symptoms of angina or CHF. Will treat the patient conservatively without cardiac cath now in the setting of advanced dementia and active COVID-19 infection. May stop IV heparin after 48 hours. Continue aspirin 81mg, Plavix 75 mg, atorvastatin 40 mg daily and metoprolol succinate 40 mg daily. Continue lisinopril for LV systolic dysfunction. We will follow the patient with you
[2019-12-31] MEDS: ATORVASTATIN CA 40 MG TABLET (FP) PO SCH (21:14)
[2019-12-31] MEDS: ACETAMINOPHEN 325 MG TABLET (FP) PO PRN (22:40)
[2020-01-01] MEDS: HEPARIN INFUSION - 25,000 UNITS/500 ML INFUS.BAG IVPB SCH ×2 (03:59→21:00)
[2020-01-01 07:10] LABS: HEMATOCRIT 43.8 % (32.4-45.2); HEMOGLOBIN 14.5 GM/dL (10.7-15.3); MCH 29.1 pg (25.7-33.7); MCHC 33.2 g/dl (32.0-36.0); MEAN CELL VOLUME 87.7 fl (80-96); MEAN PLT VOLUME 9.6 fl (7.5-11.1); PLATELET COUNT 206 K/MM3 (134-434); RBC 4.99 M/mm3 (3.60-5.2); RDW 15.4 % (11.6-15.6); WHITE BLOOD COUNT 8.1 K/mm3 (4.0-10.0)
--- NOTE | 2020-01-01 07:46 | PN ---
Progress Note, Physician Chief Complaint: EVENTS AND NOTES REVIEWED COVID19 ISOLATION AWAKE CONFUSED - Current Medication List Current Medications: Active Medications Acetaminophen (Tylenol -) 650 mg PO Q6H PRN PRN Reason: FEVER Last Admin: 12/31/19 22:40 Dose: 650 mg Documented by: Aspirin (Asa -) 81 mg PO DAILY [facility] Last Admin: 12/31/19 10:31 Dose: 81 mg Documented by: Atorvastatin Calcium (Lipitor -) 40 mg PO HS [facility] Last Admin: 12/31/19 21:14 Dose: 40 mg Documented by: Calcium Carbonate/Cholecalciferol (Os-Bebo 500+D -) 1 tab PO BID [facility] Last Admin: 12/31/19 21:13 Dose: 1 tab Documented by: Clopidogrel Bisulfate (Plavix -) 75 mg PO DAILY [facility] Last Admin: 12/31/19 10:31 Dose: 75 mg Documented by: Heparin Sodium (Porcine) (Heparin -) 1,000 unit IVPUSH PRN PRN PRN Reason: Heparin Heparin Sodium (Porcine) (Heparin -) 5,000 unit IVPUSH PRN PRN PRN Reason: Heparin Last Admin: 12/30/19 14:35 Dose: 5,000 unit Documented by: Heparin Sodium/Dextrose (Heparin Infusion -) 25,000 units in 500 mls @ 20 mls/hr IVPB TITR [facility]; Protocol Last Admin: 01/01/20 03:59 Dose: 600 units/hr, 12 mls/hr Documented by: Lisinopril (Prinivil) 5 mg PO DAILY [facility] Last Admin: 12/31/19 10:32 Dose: 5 mg Documented by: Metoprolol Succinate (Toprol Xl -) 25 mg PO DAILY [facility] Last Admin: 12/31/19 10:31 Dose: 25 mg Documented by: Ranolazine (Ranexa -) 500 mg PO BID [facility] Last Admin: 12/31/19 21:14 Dose: 500 mg Documented by: - Objective Vital Signs: Vital Signs Temperature 98.6 F 01/01/20 04:01 Pulse Rate 70 01/01/20 02:00 Respiratory Rate 20 01/01/20 02:00 Blood Pressure 114/61 01/01/20 02:00 O2 Sat by Pulse Oximetry (%) 90 L 01/01/20 02:00 Constitutional: Yes: Mild Distress Cardiovascular: Yes: Regular Rate and Rhythm Respiratory: Yes: Diminished Gastrointestinal: Yes: Soft, Abdomen, Obese Genitourinary: Yes: Incontinence Musculoskeletal: Yes: Muscle Weakness Edema: Yes Neurological: Yes: Confusion, Weakness Psychiatric: Yes: Other Labs: CBC, BMP 01/01/20 06:06 12/31/19 11:30 INR, PTT INR 1.03 (0.83-1.09) 12/30/19 02:15 Assessment/Plan COVID 19 POSITIVE ON ISOLATION PULM/ID CONSULT CARDIOLOGY EVAL APPRECIATED AGREE WITH CONSERVATIVE MANAGEMENT FOR NOW IV FLUIDS CHECK LABS DVT PROPHYLAXIS D/W DAUGHTER
[2020-01-01] MEDS: metoPROLOL SUCCINATE 25 MG TAB.SR.24H (FP) PO SCH (11:04)
[2020-01-01] MEDS: CLOPIDOGREL BISULFATE 75 MG TABLET (FP) PO SCH (11:04)
[2020-01-01] MEDS: CALCIUM 500MG/VIT-D 200 UNITS COMBO TABLET (FP) PO SCH ×2 (11:05→21:48)
[2020-01-01] MEDS: ASPIRIN 81 MG CHEWABLE TABLETS PO SCH (11:05)
[2020-01-01] MEDS: LISINOPRIL 5 MG TABLET PO SCH (11:05)
[2020-01-01] MEDS: RANOLAZINE E.R. 500 MG TABLET (FP) PO SCH ×2 (11:05→21:48)
--- NOTE | 2020-01-01 12:51 | PN ---
Progress Note (short form) - Note Progress Note: PULMONARY CONSULTATION DICTATED 01/01/20 IMP COVID 19 FEVER LIKELY SECONDARY TO ABOVE SYNCOPE + TROPONIN NSTEMI MILD-MODERATE GLOBAL HYPOKINESIS LEFT VENTRICAL HTN ASHD S/P STENT DM ? COVID ENCEPHALOPATHY PLAN SUPPLEMENTAL O2 AC INHALED BRONCHODILATORS TREND INFLAMMATORY MARKERS TREND TROPONIN CHEST CT CONSIDER CONVALESCENT PLASMA TRANSFUSION IF NOTED TO HAVE INFILTRATES ON CT DR ROSS Problem List - Problems (1) COVID-19 Code(s): U07.1 - COVID POSITIVE (2) Diabetes mellitus Code(s): E11.9 - TYPE 2 DIABETES MELLITUS WITHOUT COMPLICATIONS (3) Elevated troponin Code(s): R79.89 - OTHER SPECIFIED ABNORMAL FINDINGS OF BLOOD CHEMISTRY (4) Osteoarthritis Code(s): M19.90 - UNSPECIFIED OSTEOARTHRITIS, UNSPECIFIED SITE (5) Presence of stent in coronary artery in patient with coronary artery disease Code(s): I25.10 - ATHSCL HEART DISEASE OF [place] CORONARY ARTERY W/O ANG PCTRS; Z95.5 - PRESENCE OF CORONARY ANGIOPLASTY IMPLANT AND GRAFT (6) Rhabdomyolysis Code(s): M62.82 - RHABDOMYOLYSIS (7) Syncope Code(s): R55 - SYNCOPE AND COLLAPSE Qualifiers: Syncope type: unspecified Qualified Code(s): R55 - Syncope and collapse
--- NOTE | 2020-01-01 13:13 | CON.NEURO ---
Consult Consult Specialty:: NEUROLOGY-PARVIN BRADLEY - History of Present Illness History of Present Illness: This is a 89 y/o female with a significant past medical history of HTN, CAD s/p stents, NIDDM, Renal Calculi, OA. Who presents to the ED via ambulance for syncope, s/p fall at home. Patient's daughter was at bedside reports that the patient lives [place] and ambulates with a walker was noted to be on the floor at home via video monitor. The daughter called 911 to have her mother brought in for evaluation. Per the daughter the patient does not recall how she ended up on the floor, but reports having right temporal headache and right knee pain. Per the daughter, patient denies lightheadedness, numbness, CP, palpitations, SOB, fever, chills, cough, AP, N/V/D, constipation, melena, hematochezia, dysuria. She denies patient having sick contacts or recent travel. Troponins found to be elevated. Found to be covid+ Denies headache, states she feels better, denies all other neurologic symptoms. - Past Medical History Cardio/Vascular: Yes: CAD, HTN Renal/: Yes: Renal Calculi ...: No Musculoskeletal: Yes: Osteoarthritis Endocrine: Yes: Diabetes Mellitus - Past Surgical History Past Surgical History: Yes: Cholecystectomy, , Stent - Alcohol/Substance Use Hx Alcohol Use: No History of Substance Use: reports: None - Smoking History Smoking history: Unknown if ever smoked Aproximately how many cigarettes per day: 0 - Social History ADL: Independent (ambulates w/walker) History of Recent Travel: No Home Medications - Allergies Allergies/Adverse Reactions: Allergies Allergy/AdvReac Type Severity Reaction Status Date / Time Penicillins Allergy itching Verified 12/30/19 02:10 hives - Home Medications Home Medications: Ambulatory Orders Atorvastatin Ca [Lipitor] 40 mg PO HS #0 tablet 04/03/13 Calcium Carbonate/Vitamin D3 [Oyst-Bebo-D 500 mg Tablet] 1 each PO BID #0 tablet 04/03/13 Clopidogrel Bisulfate [Plavix -] 75 mg PO DAILY #0 tablet 04/03/13 Diclofenac Sodium [Voltaren] 100 gm TP BID #0 gel..gram. 04/03/13 Glimepiride 4 mg PO DAILY #0 tablet 04/03/13 Lisinopril [Prinivil] 10 mg PO DAILY #0 tablet 04/03/13 Meloxicam [Mobic -] 15 mg PO DAILY #0 tablet 04/03/13 Olopatadine HCl [Pataday] 1 drop OU DAILY #0 drops 04/03/13 Omeprazole [Prilosec (RX)] 20 mg PO DAILY #0 capsule.dr 04/03/13 Ranolazine [Ranexa] 500 mg PO BID #0 tab.er.12h 04/03/13 Saxagliptin HCl/Metformin HCl [Kombiglyze Xr 5-1,000 mg Tab] 1 each PO DAILY #0 tbmp.24hr 04/03/13 Physical Exam-Neuro Vital Signs: Vital Signs Temperature 98.6 F 01/01/20 04:01 Pulse Rate 70 01/01/20 02:00 Respiratory Rate 20 01/01/20 02:00 Blood Pressure 114/61 01/01/20 02:00 O2 Sat by Pulse Oximetry (%) 90 L 01/01/20 02:00 Labs: CBC, BMP 01/01/20 06:06 12/31/19 11:30 INR, PTT INR 1.03 (0.83-1.09) 12/30/19 02:15 - Neuro Exam Level Of Consciousness: Yes: Alert, Oriented to Person Eyes: Yes: PERRL Mini Mental Exam: Mildly impaired att/conc. DTR's: 0 Left Achilles, 0 Right Achilles, 1+ Left Bicep, 1+ Right Bicep, 1+ Left Tricep, 1+ Right Tricep, 1+ Left Brachioradialis, 1+ Right Brachioradialis Babinski: Absent Motor Strength: 5/5: Left Arm, Right Arm, Left Leg, Right Leg Gait: Deferred Imaging - Results Cat Scan: Report Reviewed (No acute changes) Assessment/Plan Pt. with transient confusion, now improving. She likely was delirious 2/2 covid encephalopathy. Appears improved cognitively, no further neurologic intervention is required. Thank you, pau Corbin MD
--- NOTE | 2020-01-01 14:05 | EKG ---
Test Reason : Blood Pressure : / mmHG Vent. Rate : 071 BPM Atrial Rate : 071 BPM P-R Int : 158 ms QRS Dur : 088 ms QT Int : 440 ms P-R-T Axes : 059 -70 218 degrees QTc Int : 478 ms NORMAL SINUS RHYTHM LEFT ANTERIOR FASCICULAR BLOCK POSSIBLE LATERAL INFARCT (CITED ON OR BEFORE 30-DEC-2019) CANNOT RULE OUT INFERIOR INFARCT (CITED ON OR BEFORE 30-DEC-2019) T WAVE ABNORMALITY, CONSIDER ANTERIOR ISCHEMIA ABNORMAL ECG WHEN COMPARED WITH ECG OF 30-DEC-2019 12:16, SERIAL CHANGES OF LATERAL INFARCT PRESENT Confirmed by Steffen Fitzgerald MD ([id number]) on 01/01/2020 2:05:02 PM Referred By: Confirmed By:Steffen Fitzgerald MD
--- NOTE | 2020-01-01 15:23 | PN ---
Progress Note (short form) - Note Progress Note: ID CONSULT DICTATED COVID-19 PNEUMONITIS R/O COMMUNITY ACQUIRED V. ATPICAL PNEUMONIA TOXIC METABOLIC ENCEPHALOPATHY S/P SYNCOPE PCN ALLERGY OBTAIN SPUTUM C/S URINE LEGIONELLA AG CT CHEST EMPIRIC CEFTRIAXONE/ ZITHROMAX CONSIDER C- PLASMA, REMDESIVIR
[2020-01-01] MEDS ORDERED: AZITHROMYCIN IVPB 500 MG in DEXTROSE 5%-WATER - 250 ML IVPB SCH (15:30)
--- NOTE | 2020-01-01 15:33 | CONS ---
PULMONARY CONSULTATION DATE OF CONSULTATION: 01/01/2020 REFERRING PHYSICIAN: Dr. Maradiaga HISTORY: Patient is an 89-year-old female with past medical history of hypertension, ASHD, status post stents, noninsulin-dependent diabetes mellitus, renal calculi, osteoarthritis, admitted to [facility] status post syncopal episode at home. Apparently the patient's daughter on admission noted patient lives alone and ambulates with a walker. She was noted to be on the floor at a home video monitor. Patient called 911 and they sent the patient to the ER. Apparently the patient did not recall how she ended up on the floor, but apparently had a headache and some knee pain prior with no nausea, vomiting and no shortness of breath. Patient was admitted with the above. Hospitalization was notable for she spiked a temperature on December 30 of 102.7. Subsequently serology was sent and was positive. Patient had a normal chest x-ray on admission. Of note is on admission her O2 saturations were apparently 98 to 93 on 2 L, unclear 90% today on unknown quantity of oxygen. She was evaluated by Dr. Thomason for Cardiology consultation secondary to elevated troponins. She was placed on aspirin and Plavix and started on heparin drip for likely non-STEMI. She was also evaluated by Neurology who felt that the patient possibly has COVID encephalopathy. PAST MEDICAL HISTORY: Again, includes hypertension, osteoarthritis, questionable dementia, ASHD, status post stents 7 to 8 years ago at [place], diabetes, arthritis. REVIEW OF SYSTEMS: Unable to obtain. PHYSICAL EXAMINATION: General: Patient is an elderly female awake, alert and confused, but in no acute distress. Vital Signs: She is currently afebrile. T-max is 101, blood pressure 114/61 and respiratory rate of 20. O2 saturation is 90% on unknown quantity of oxygen. HEENT: Normocephalic, atraumatic. Neck: Supple. Heart: Regular with S1, S2. Chest: Few basilar crackles at the left base. Abdomen: Soft. Bowel sounds are positive. Extremities: No cyanosis or edema. LABORATORIES: COVID is positive. WBC is 8.1, hemoglobin 14.5, hematocrit 43.8 with a platelet count of 206,000. Troponin is 2.11. CK is 552. Chest x-ray: No acute infiltrations or effusions. IMPRESSION: 1. COVID-19 infection. 2. Fever likely secondary to COVID. 3. Syncope. 4. Positive troponins, likely [id number] myocardial infarction. 5. Wlcn-po-visfbivq global hypokinesis of the left ventricle. 6. Hypertension. 7. Atherosclerotic heart disease, status post stents. 8. Diabetes. 9. Likely COVID encephalopathy. SUGGEST: Supplemental O2, anticoagulation, trend inflammatory markers, trend troponin, CT scan of the chest. If CT is noted to have bilateral infiltrates will consider convalescent plasma transfusion if patient becomes more hypoxemic. Also will start inhaled steroids and steroids if patient should develop hypoxemia. KENNEDI ROSS M.D. PANFILO/[id number]
--- NOTE | 2020-01-01 15:45 | PN ---
Progress Note, Physician Chief Complaint: The patient appears comfortable at the time of exam. She denies chest pain, shortness of breath, palpitation or dizziness. Telemetry reviewed, it showed sinus rhythm rare single VPCs. History of Present Illness: 89 year old female with a PMHx of dementia, HTN, DM, CAD s/p stents 7-8 yrs ago at [facility], and arthritis who was found on floor at home. Patient with no complaints. Does not recall event. Patient appears comfortable and is very pleasant but poor historian. CTH no acute m/s/b. CXR no acute lung process. CK 525 Trops was elevated, trending down now: 2.96->2.36->2.11 EKG (1st) sinus, lab, anterolateral infarct, no acute st changes EKG (2nd) with new anterior TWI. Echo 12/31/2019: Normal LV size with mild to moderate global LV hypokinesis. LVEF 40-45%. Normal RV. Normal LA and RA in size. Mild MR. COVID 19 swab positive 12/30/19. - Current Medication List Current Medications: Active Medications Acetaminophen (Tylenol -) 650 mg PO Q6H PRN PRN Reason: FEVER Last Admin: 12/31/19 22:40 Dose: 650 mg Documented by: Aspirin (Asa -) 81 mg PO DAILY [facility] Last Admin: 01/01/20 11:05 Dose: 81 mg Documented by: Atorvastatin Calcium (Lipitor -) 40 mg PO HS [facility] Last Admin: 12/31/19 21:14 Dose: 40 mg Documented by: Budesonide/Formoterol Fumarate (Symbicort 160/4.5mcg -) 2 puff IH BID [facility] Calcium Carbonate/Cholecalciferol (Os-Bebo 500+D -) 1 tab PO BID [facility] Last Admin: 01/01/20 11:05 Dose: 1 tab Documented by: Clopidogrel Bisulfate (Plavix -) 75 mg PO DAILY [facility] Last Admin: 01/01/20 11:04 Dose: 75 mg Documented by: Heparin Sodium (Porcine) (Heparin -) 1,000 unit IVPUSH PRN PRN PRN Reason: Heparin Heparin Sodium (Porcine) (Heparin -) 5,000 unit IVPUSH PRN PRN PRN Reason: Heparin Last Admin: 12/30/19 14:35 Dose: 5,000 unit Documented by: Heparin Sodium/Dextrose (Heparin Infusion -) 25,000 units in 500 mls @ 20 mls/hr IVPB TITR [facility]; Protocol Last Admin: 01/01/20 03:59 Dose: 600 units/hr, 12 mls/hr Documented by: Azithromycin 500 mg/ Dextrose 250 mls @ 250 mls/hr IVPB DAILY [facility] Ceftriaxone Sodium 2 gm/ (Dextrose) 100 mls @ 100 mls/hr IVPB DAILY [facility]; Protocol Lisinopril (Prinivil) 5 mg PO DAILY [facility] Last Admin: 01/01/20 11:05 Dose: 5 mg Documented by: Metoprolol Succinate (Toprol Xl -) 25 mg PO DAILY [facility] Last Admin: 01/01/20 11:04 Dose: 25 mg Documented by: Ranolazine (Ranexa -) 500 mg PO BID [facility] Last Admin: 01/01/20 11:05 Dose: 500 mg Documented by: - Objective Vital Signs: Vital Signs Temperature 101.7 F H 01/01/20 14:00 Pulse Rate 79 01/01/20 14:00 Respiratory Rate 20 01/01/20 14:00 Blood Pressure 138/68 01/01/20 14:00 O2 Sat by Pulse Oximetry (%) 90 L 01/01/20 02:00 General: Well developed. Well nourished. No acute distress. Head: Normocephalic. Atraumatic, Eyes: PERRLA, EOMI. Sclerae anicteric. Conjunctivae clear. Neck: Supple. No JVD. No bruits. Heart: Normal S1, S2: Regular rhythm and rate. No murmur. No gallop or rub. Lungs: Symmetrical air entry. Clear to auscultation. No crackles. No wheezing or rhonchi. Abdomen: Soft. Bowel sound positive. Non tender. No masses. Extremities: No edema. No clubbing or cyanosis. PD 2+, equal bilaterally. Labs: CBC, BMP 01/01/20 06:06 12/31/19 11:30 INR, PTT INR 1.03 (0.83-1.09) 12/30/19 02:15 Assessment/Plan 89 year old female with a PMHx of dementia, HTN, DM, CAD s/p stents 7-8 yrs ago at [facility], and arthritis who was found on floor at home. Patient with no c omplaints. Does not recall event. Patient appears comfortable and is very pleasant but poor historian. CTH no acute m/s/b. CXR no acute lung process. CK 525 Trops was elevated, trending down now: 2.96->2.36->2.11 EKG (1st) sinus, LAFB, anterolateral infarct, no acute st changes EKG (2nd) with new anterior TWI. Echo 12/31/2019: Normal LV size with mild to moderate global LV hypokinesis. LVEF 40-45%. Normal RV. Normal LA and RA in size. Mild MR. COVID 19 swab positive 12/30/19. 1) NSTEMI -Patient with known CAD s/p stents 7-8yrs ago. Daughter does not known if she sees a woolen tester but reports follows with Dr. Plmumer. -Cardiac enzyme elevated with ECG evidence of anterior wall ischemia. -Toponin is trending down now. Patient has no symptoms of angina or CHF. Will treat the patient conservatively without cardiac cath now in the setting of advanced dementia and active COVID-19 infection. May increase metoprolol succinate to 50 mg daily. Continue aspirin 81mg, Plavix 75 mg, atorvastatin 40 mg daily. Continue lisinopril for LV systolic dysfunction. We will follow the patient with you
--- NOTE | 2020-01-01 16:02 | CONS ---
INFECTIOUS DISEASE CONSULTATION DATE OF CONSULTATION: DATE OF DICTATION: 01/01/2020 HISTORY: The patient is an 89-year-old Cymro-speaking female who is evaluated for positive coronavirus PCR. History was obtained from the chart as she suffers from confusion. She is 89 years old. She apparently lives at home. She was admitted to the hospital on December 29 after an apparent fall. A CAT scan of the head was negative for infarct or bleed. Family has cameras at her residence and she had apparently been on the floor for approximately 5 to 6 hours. She was evaluated where her course was complicated by fever at 102.7. She also had an elevated white blood cell count. Chest x-ray showed some increased markings bilaterally. A COVID-19 PCR was sent and was positive. She remains stable with satisfactory O2 saturations on room air. This morning her O2 saturation was in the 90s on room air. She is awake. However, she is confused. She denies any complaints. She has no complaints of chest pain, shortness of breath, cough or sputum production. Denies hemoptysis. No known ill contacts. No recent travel. PAST MEDICAL HISTORY: Positive for mild dementia, hypertension, diabetes mellitus, coronary artery disease, osteoarthritis. PAST SURGICAL HISTORY: Status post cholecystectomy, section. ALLERGIES: To PENCILLIN. Nature of this PENICILLIN ALLERGY not known. MEDICATIONS: See medication list. SYSTEMS REVIEW: Neurologic: Positive for mild dementia. Cardiac: Negative chest pain or palpitations. Respiratory: As per HPI. Gastrointestinal: Negative vomiting or diarrhea. Genitourinary: Negative for urinary tract infection. LABORATORY DATA: White count 8.1, hematocrit 43.8, platelets 206. Urine analysis 1 white cell. Ferritin 286, D-dimer 339, LDH 220. Chest x-ray shows some increased markings bilaterally. PHYSICAL EXAMINATION: General: She is awake. She is obese. Vital Signs: Temperature 98.6, T-max 102.7, blood pressure 114/61, pulse 70 regular, respirations 20 per minute. HEENT: Sclerae are anicteric. Heart: Sounds S1, S2. Lungs: Decreased bilaterally. Poor inspiratory effort. Abdomen: Obese, soft, nontender. Extremities: Negative for edema. Negative Homans sign. IMPRESSION: 1. COVID-19 pneumonitis. 2. Status post apparent syncope. 3. Rule out rhabdomyolysis. 4. Diabetes mellitus. 5. Toxic metabolic encephalopathy. Patient appears to be oxygenating well with pretty much normal inflammatory markers. Would obtain sputum culture, urine legionella antigen. Empiric antibiotic coverage with Zithromax and ceftriaxone. CAT scan of the chest. Monitor inflammatory markers. Should patient remain hypoxemic with significant findings on CAT scan, she is a candidate for convalescent plasma and possible remdesivir. Airborne precautions. Thank you for the kind referral. ROSANNA MARTELL M.D. [id number]
[2020-01-01] MEDS ORDERED: DEXTROSE 5%-WATER 100 ML IVPB ONE (17:14)
[2020-01-01] MEDS: CEFTRIAXONE 2 GM in DEXTROSE 5%-WATER 100 ML IVPB SCH (17:26)
[2020-01-01] MEDS: AZITHROMYCIN IVPB 500 MG/250 ML BAG IVPB SCH (18:37)
[2020-01-01] MEDS: ACETAMINOPHEN 325 MG TABLET (FP) PO PRN (18:45)
[2020-01-01] MEDS: ATORVASTATIN CA 40 MG TABLET (FP) PO SCH (21:48)
[2020-01-01] MEDS: BUDESONIDE/FORMETEROL FUMARATE 160/4.5 mcg INHALER IH SCH (22:18)
[2020-01-02] MEDS: ACETAMINOPHEN 325 MG TABLET (FP) PO PRN (00:46)
[2020-01-02 07:08] LABS: HEMATOCRIT 44.1 % (32.4-45.2); HEMOGLOBIN 14.7 GM/dL (10.7-15.3); MCH 28.9 pg (25.7-33.7); MCHC 33.3 g/dl (32.0-36.0); MEAN CELL VOLUME 86.7 fl (80-96); PLATELET COUNT 199 K/MM3 (134-434); RBC 5.09 M/mm3 (3.60-5.2); RDW 15.2 % (11.6-15.6); WHITE BLOOD COUNT 6.5 K/mm3 (4.0-10.0)
--- NOTE | 2020-01-02 07:49 | PN ---
Progress Note, Physician Chief Complaint: AWAKE FEELING BETTER AWAITING CT CHEST - Current Medication List Current Medications: Active Medications Acetaminophen (Tylenol -) 650 mg PO Q6H PRN PRN Reason: FEVER Last Admin: 01/02/20 00:46 Dose: 650 mg Documented by: Aspirin (Asa -) 81 mg PO DAILY [facility] Last Admin: 01/01/20 11:05 Dose: 81 mg Documented by: Atorvastatin Calcium (Lipitor -) 40 mg PO HS [facility] Last Admin: 01/01/20 21:48 Dose: 40 mg Documented by: Budesonide/Formoterol Fumarate (Symbicort 160/4.5mcg -) 2 puff IH BID [facility] Last Admin: 01/01/20 22:18 Dose: Not Given Documented by: Calcium Carbonate/Cholecalciferol (Os-Bebo 500+D -) 1 tab PO BID [facility] Last Admin: 01/01/20 21:48 Dose: 1 tab Documented by: Clopidogrel Bisulfate (Plavix -) 75 mg PO DAILY [facility] Last Admin: 01/01/20 11:04 Dose: 75 mg Documented by: Heparin Sodium (Porcine) (Heparin -) 1,000 unit IVPUSH PRN PRN PRN Reason: Heparin Heparin Sodium (Porcine) (Heparin -) 5,000 unit IVPUSH PRN PRN PRN Reason: Heparin Last Admin: 12/30/19 14:35 Dose: 5,000 unit Documented by: Heparin Sodium/Dextrose (Heparin Infusion -) 25,000 units in 500 mls @ 20 mls/hr IVPB TITR [facility]; Protocol Last Admin: 01/01/20 21:00 Dose: Not Given Documented by: Ceftriaxone Sodium 2 gm/ (Dextrose) 100 mls @ 100 mls/hr IVPB DAILY [facility]; Protocol Last Admin: 01/01/20 17:26 Dose: 100 mls/hr Documented by: Azithromycin (Zithromax 500mg Ivpb (Pre-Docked)) 500 mg in 250 mls @ 250 mls/hr IVPB DAILY [facility] Last Admin: 01/01/20 18:37 Dose: 250 mls/hr Documented by: Lisinopril (Prinivil) 5 mg PO DAILY [facility] Last Admin: 01/01/20 11:05 Dose: 5 mg Documented by: Metoprolol Succinate (Toprol Xl -) 25 mg PO DAILY [facility] Last Admin: 01/01/20 11:04 Dose: 25 mg Documented by: Ranolazine (Ranexa -) 500 mg PO BID [facility] Last Admin: 01/01/20 21:48 Dose: 500 mg Documented by: - Objective Vital Signs: Vital Signs Temperature 99 F 01/02/20 05:51 Pulse Rate 73 01/02/20 05:51 Respiratory Rate 20 01/02/20 05:51 Blood Pressure 128/47 L 01/02/20 05:51 O2 Sat by Pulse Oximetry (%) 93 L 01/02/20 05:51 Constitutional: Yes: Mild Distress Cardiovascular: Yes: Regular Rate and Rhythm Respiratory: Yes: Diminished, On Nasal O2 Gastrointestinal: Yes: Soft, Abdomen, Obese Genitourinary: Yes: Incontinence Musculoskeletal: Yes: Muscle Weakness Edema: Yes Integumentary: Yes: WNL Wound/Incision: Yes: Clean/Dry Neurological: Yes: Pre-Existing Deficit ...Motor Strength: LLE, RLE Labs: CBC, BMP 01/02/20 06:46 12/31/19 11:30 INR, PTT INR 1.03 (0.83-1.09) 12/30/19 02:15 Problem List - Problems (1) COVID-19 Code(s): U07.1 - COVID POSITIVE (2) Diabetes mellitus Code(s): E11.9 - TYPE 2 DIABETES MELLITUS WITHOUT COMPLICATIONS (3) Elevated troponin Code(s): R79.89 - OTHER SPECIFIED ABNORMAL FINDINGS OF BLOOD CHEMISTRY (4) Fall Code(s): W19.XXXA - UNSPECIFIED FALL, INITIAL ENCOUNTER Qualifiers: Encounter type: initial encounter Qualified Code(s): W19.XXXA - Unspecified fall, initial encounter (5) HTN (hypertension) Code(s): I10 - ESSENTIAL (PRIMARY) HYPERTENSION (6) Osteoarthritis Code(s): M19.90 - UNSPECIFIED OSTEOARTHRITIS, UNSPECIFIED SITE (7) Presence of stent in coronary artery in patient with coronary artery disease Code(s): I25.10 - ATHSCL HEART DISEASE OF [place] CORONARY ARTERY W/O ANG PCTRS; Z95.5 - PRESENCE OF CORONARY ANGIOPLASTY IMPLANT AND GRAFT Assessment/Plan COVID 19 POSITIVE ON ISOLATION PULM/ID CONSULT CARDIOLOGY EVAL APPRECIATED AGREE WITH CONSERVATIVE MANAGEMENT FOR NOW IV FLUIDS CHECK LABS DVT PROPHYLAXIS D/W DAUGHTER ON IV ABX/NEBS/02 SUPPORT
[2020-01-02] MEDS ORDERED: DEXTROSE 5%-WATER 100 ML IVPB ONE (09:17)
[2020-01-02] MEDS: CEFTRIAXONE 2 GM in DEXTROSE 5%-WATER 100 ML IVPB SCH (09:34)
[2020-01-02] MEDS: AZITHROMYCIN IVPB 500 MG/250 ML BAG IVPB SCH (09:35)
[2020-01-02] MEDS: metoPROLOL SUCCINATE 25 MG TAB.SR.24H (FP) PO SCH (09:39)
[2020-01-02] MEDS: LISINOPRIL 5 MG TABLET PO SCH (09:40)
[2020-01-02] MEDS: ASPIRIN 81 MG CHEWABLE TABLETS PO SCH (09:40)
[2020-01-02] MEDS: CLOPIDOGREL BISULFATE 75 MG TABLET (FP) PO SCH (09:40)
[2020-01-02] MEDS: CALCIUM 500MG/VIT-D 200 UNITS COMBO TABLET (FP) PO SCH ×2 (09:40→21:53)
[2020-01-02] MEDS: RANOLAZINE E.R. 500 MG TABLET (FP) PO SCH ×2 (09:41→21:53)
[2020-01-02] MEDS: BUDESONIDE/FORMETEROL FUMARATE 160/4.5 mcg INHALER IH SCH ×2 (09:42→21:53)
--- NOTE | 2020-01-02 10:06 | PN ---
Progress Note, Physician History of Present Illness: pulmonary alert,comfortable,-sob,o2 sat 90% on ra - Current Medication List Current Medications: Active Medications Acetaminophen (Tylenol -) 650 mg PO Q6H PRN PRN Reason: FEVER Last Admin: 01/02/20 00:46 Dose: 650 mg Documented by: Aspirin (Asa -) 81 mg PO DAILY [facility] Last Admin: 01/02/20 09:40 Dose: 81 mg Documented by: Atorvastatin Calcium (Lipitor -) 40 mg PO HS [facility] Last Admin: 01/01/20 21:48 Dose: 40 mg Documented by: Budesonide/Formoterol Fumarate (Symbicort 160/4.5mcg -) 2 puff IH BID [facility] Last Admin: 01/02/20 09:42 Dose: 2 puff Documented by: Calcium Carbonate/Cholecalciferol (Os-Bebo 500+D -) 1 tab PO BID [facility] Last Admin: 01/02/20 09:40 Dose: 1 tab Documented by: Clopidogrel Bisulfate (Plavix -) 75 mg PO DAILY [facility] Last Admin: 01/02/20 09:40 Dose: 75 mg Documented by: Heparin Sodium (Porcine) (Heparin -) 1,000 unit IVPUSH PRN PRN PRN Reason: Heparin Heparin Sodium (Porcine) (Heparin -) 5,000 unit IVPUSH PRN PRN PRN Reason: Heparin Last Admin: 12/30/19 14:35 Dose: 5,000 unit Documented by: Heparin Sodium/Dextrose (Heparin Infusion -) 25,000 units in 500 mls @ 20 mls/hr IVPB TITR [facility]; Protocol Last Admin: 01/01/20 21:00 Dose: Not Given Documented by: Ceftriaxone Sodium 2 gm/ (Dextrose) 100 mls @ 100 mls/hr IVPB DAILY [facility]; Protocol Last Admin: 01/02/20 09:34 Dose: 100 mls/hr Documented by: Azithromycin (Zithromax 500mg Ivpb (Pre-Docked)) 500 mg in 250 mls @ 250 mls/hr IVPB DAILY [facility] Last Admin: 01/02/20 09:35 Dose: 250 mls/hr Documented by: Lisinopril (Prinivil) 5 mg PO DAILY [facility] Last Admin: 01/02/20 09:40 Dose: 5 mg Documented by: Metoprolol Succinate (Toprol Xl -) 25 mg PO DAILY [facility] Last Admin: 01/02/20 09:39 Dose: 25 mg Documented by: Ranolazine (Ranexa -) 500 mg PO BID [facility] Last Admin: 01/02/20 09:41 Dose: 500 mg Documented by: - Objective Vital Signs: Vital Signs Temperature 99 F 01/02/20 05:51 Pulse Rate 73 01/02/20 05:51 Respiratory Rate 20 01/02/20 05:51 Blood Pressure 128/47 L 01/02/20 05:51 O2 Sat by Pulse Oximetry (%) 93 L 01/02/20 05:51 Constitutional: Yes: Well Nourished, Calm Eyes: Yes: WNL HENT: Yes: WNL Neck: Yes: WNL Cardiovascular: Yes: Regular Rate and Rhythm, S1, S2 Respiratory: Yes: Diminished Gastrointestinal: Yes: Normal Bowel Sounds, Soft Extremities: Yes: WNL Edema: No Labs: CBC, BMP 01/02/20 06:46 Laboratory Tests 01/01/20 01/01/20 13:47 13:47 D-Dimer 339 Ferritin 286.9 LD Total 220 C-Reactive Protein 10.1 H Problem List - Problems (1) COVID-19 Code(s): U07.1 - COVID POSITIVE (2) Diabetes mellitus Code(s): E11.9 - TYPE 2 DIABETES MELLITUS WITHOUT COMPLICATIONS (3) Elevated troponin Code(s): R79.89 - OTHER SPECIFIED ABNORMAL FINDINGS OF BLOOD CHEMISTRY (4) Osteoarthritis Code(s): M19.90 - UNSPECIFIED OSTEOARTHRITIS, UNSPECIFIED SITE (5) Presence of stent in coronary artery in patient with coronary artery disease Code(s): I25.10 - ATHSCL HEART DISEASE OF [place] CORONARY ARTERY W/O ANG PCTRS; Z95.5 - PRESENCE OF CORONARY ANGIOPLASTY IMPLANT AND GRAFT (6) Rhabdomyolysis Code(s): M62.82 - RHABDOMYOLYSIS (7) Syncope Code(s): R55 - SYNCOPE AND COLLAPSE Qualifiers: Syncope type: unspecified Qualified Code(s): R55 - Syncope and collapse Assessment/Plan IMP COVID 19 FEVER LIKELY SECONDARY TO ABOVE SYNCOPE + TROPONIN NSTEMI MILD-MODERATE GLOBAL HYPOKINESIS LEFT VENTRICAL HTN ASHD S/P STENT DM ? COVID ENCEPHALOPATHY PLAN SUPPLEMENTAL O2 AC INHALED BRONCHODILATORS TREND INFLAMMATORY MARKERS TREND TROPONIN CHEST CT PENDING CONSIDER CONVALESCENT PLASMA TRANSFUSION IF NOTED TO HAVE INFILTRATES ON CT DR ROSS Problem List - Problems (1) COVID-19 Code(s): U07.1 - COVID POSITIVE (2) Diabetes mellitus Code(s): E11.9 - TYPE 2 DIABETES MELLITUS WITHOUT COMPLICATIONS (3) Elevated troponin Code(s): R79.89 - OTHER SPECIFIED ABNORMAL FINDINGS OF BLOOD CHEMISTRY (4) Osteoarthritis Code(s): M19.90 - UNSPECIFIED OSTEOARTHRITIS, UNSPECIFIED SITE (5) Presence of stent in coronary artery in patient with coronary artery disease Code(s): I25.10 - ATHSCL HEART DISEASE OF [place] CORONARY ARTERY W/O ANG PCTRS; Z95.5 - PRESENCE OF CORONARY ANGIOPLASTY IMPLANT AND GRAFT (6) Rhabdomyolysis Code(s): M62.82 - RHABDOMYOLYSIS (7) Syncope Code(s): R55 - SYNCOPE AND COLLAPSE Qualifiers: Syncope type: unspecified Qualified Code(s): R55 - Syncope and collapse
--- NOTE | 2020-01-02 15:43 | PN ---
Progress Note, Physician Chief Complaint: The patient appears comfortable at the time of exam. She denies chest pain, shortness of breath, or palpitation. Telemetry reviewed, it showed sinus rhythm 65-75 BPM with rare single VPCs. History of Present Illness: 89 year old female with a PMHx of dementia, HTN, DM, CAD s/p stents 7-8 yrs ago at [facility], and arthritis who was found on floor at home. Patient with no complaints. Does not recall event. Patient appears comfortable without symptoms of angina or CHF. CTH no acute m/s/b. CXR no acute lung process. CK 525 Trops was elevated, trending down now: 4.46->2.96->2.36->2.11 EKG (1st) sinus, lab, anterolateral infarct, no acute st changes EKG (2nd) with new anterior TWI. Echo 12/31/2019: Normal LV size with mild to moderate global LV hypokinesis. LVEF 40-45%. Normal RV. Normal LA and RA in size. Mild MR. COVID 19 swab positive 12/30/19. - Current Medication List Current Medications: Active Medications Acetaminophen (Tylenol -) 650 mg PO Q6H PRN PRN Reason: FEVER Last Admin: 01/02/20 00:46 Dose: 650 mg Documented by: Aspirin (Asa -) 81 mg PO DAILY [facility] Last Admin: 01/02/20 09:40 Dose: 81 mg Documented by: Atorvastatin Calcium (Lipitor -) 40 mg PO HS [facility] Last Admin: 01/01/20 21:48 Dose: 40 mg Documented by: Budesonide/Formoterol Fumarate (Symbicort 160/4.5mcg -) 2 puff IH BID [facility] Last Admin: 01/02/20 09:42 Dose: 2 puff Documented by: Calcium Carbonate/Cholecalciferol (Os-Bebo 500+D -) 1 tab PO BID [facility] Last Admin: 01/02/20 09:40 Dose: 1 tab Documented by: Clopidogrel Bisulfate (Plavix -) 75 mg PO DAILY [facility] Last Admin: 01/02/20 09:40 Dose: 75 mg Documented by: Heparin Sodium (Porcine) (Heparin -) 1,000 unit IVPUSH PRN PRN PRN Reason: Heparin Heparin Sodium (Porcine) (Heparin -) 5,000 unit IVPUSH PRN PRN PRN Reason: Heparin Last Admin: 12/30/19 14:35 Dose: 5,000 unit Documented by: Heparin Sodium/Dextrose (Heparin Infusion -) 25,000 units in 500 mls @ 20 mls/ hr IVPB TITR [facility]; Protocol Last Admin: 01/01/20 21:00 Dose: Not Given Documented by: Ceftriaxone Sodium 2 gm/ (Dextrose) 100 mls @ 100 mls/hr IVPB DAILY [facility]; Protocol Last Admin: 01/02/20 09:34 Dose: 100 mls/hr Documented by: Azithromycin (Zithromax 500mg Ivpb (Pre-Docked)) 500 mg in 250 mls @ 250 mls/hr IVPB DAILY [facility] Last Admin: 01/02/20 09:35 Dose: 250 mls/hr Documented by: Lisinopril (Prinivil) 5 mg PO DAILY [facility] Last Admin: 01/02/20 09:40 Dose: 5 mg Documented by: Metoprolol Succinate (Toprol Xl -) 25 mg PO DAILY [facility] Last Admin: 01/02/20 09:39 Dose: 25 mg Documented by: Ranolazine (Ranexa -) 500 mg PO BID [facility] Last Admin: 01/02/20 09:41 Dose: 500 mg Documented by: - Objective Vital Signs: Vital Signs Temperature 99.6 F 01/02/20 10:00 Pulse Rate 88 01/02/20 10:00 Respiratory Rate 22 H 01/02/20 10:00 Blood Pressure 139/75 01/02/20 10:00 O2 Sat by Pulse Oximetry (%) 92 L 01/02/20 09:00 General: Well developed. Well nourished. No acute distress. Head: Normocephalic. Atraumatic, Eyes: PERRLA, EOMI. Sclerae anicteric. Conjunctivae clear. Neck: Supple. No JVD. No bruits. Heart: Normal S1, S2: Regular rhythm and rate. No murmur. No gallop or rub. Lungs: Symmetrical air entry. Clear to auscultation. No crackles. No wheezing or rhonchi. Abdomen: Soft. Bowel sound positive. Non tender. No masses. Extremities: No edema. No clubbing or cyanosis. PD 2+, equal bilaterally. Neuro: Intact, no focal findings. Labs: CBC, BMP 01/02/20 06:46 12/31/19 11:30 INR, PTT INR 1.03 (0.83-1.09) 12/30/19 02:15 Assessment/Plan 89 year old female with a PMHx of dementia, HTN, DM, CAD s/p stents 7-8 yrs ago at [facility], and arthritis who was found on floor at home. Patient with no complaints. Does not recall event. Patient appears comfortable without symptoms of angina or CHF. CTH no acute m/s/b. CXR no acute lung process. CK 525 Trops was elevated, trending down now: 4.46->2.96->2.36->2.11 EKG (1st) sinus, lab, anterolateral infarct, no acute st changes EKG (2nd) with new anterior TWI. Echo 12/31/2019: Normal LV size with mild to moderate global LV hypokinesis. LVEF 40-45%. Normal RV. Normal LA and RA in size. Mild MR. COVID 19 swab positive 12/30/19. 1) NSTEMI -Patient with known CAD s/p stents 7-8yrs ago. Daughter does not known if she sees a silk opener but reports follows with Dr. Plummer. -Cardiac enzyme elevated with ECG evidence of anterior wall ischemia. -Toponin is trending down now. Patient has no symptoms of angina or CHF. Will treat the patient conservatively without cardiac cath now in the setting of advanced dementia and active COVID-19 infection. May discontinue IV heparin. May discontinue tele. Continue aspirin 81mg, Plavix 75 mg, metoprolol succinate to 25 mg daily, atorvastatin 40 mg daily. Continue lisinopril for LV systolic dysfunction. Outpatient cardiac follow up with Dr. Pineda. Please do not hesitate to call us for reconsult at any time if any further questions or additional issue arises regarding this patient.
[2020-01-02] MEDS ORDERED: methylPREDNISolone NA SUCC 40 MG/1 ML VIAL IVPUSH ONE (20:13)
[2020-01-02] MEDS: ATORVASTATIN CA 40 MG TABLET (FP) PO SCH (21:53)
[2020-01-03 08:01] LABS: HEMATOCRIT 45.6 % (32.4-45.2); HEMOGLOBIN 15.1 GM/dL (10.7-15.3); MCH 28.6 pg (25.7-33.7); MCHC 33.1 g/dl (32.0-36.0); MEAN CELL VOLUME 86.3 fl (80-96); MEAN PLT VOLUME 9.2 fl (7.5-11.1); PLATELET COUNT 207 K/MM3 (134-434); RBC 5.29 M/mm3 (3.60-5.2); RDW 15.4 % (11.6-15.6); WHITE BLOOD COUNT 6.5 K/mm3 (4.0-10.0)
[2020-01-03 08:30] LABS: POTASSIUM 3.6 mmol/L (3.5-5.1)
[2020-01-03 08:58] LABS: ALBUMIN 2.7 g/dl (3.4-5.0); BILIRUBIN,TOTAL 1.1 mg/dL (0.2-1); BLOOD UREA NITROGEN 14.5 mg/dL (7-18); CALCIUM 8.2 mg/dL (8.5-10.1); CREATININE 0.7 mg/dL (0.55-1.3); MAGNESIUM 1.9 mg/dL (1.8-2.4); TOT PROT 6.1 g/dl (6.4-8.2)
[2020-01-03] MEDS ORDERED: DEXTROSE 5%-WATER 100 ML IVPB ONE (09:12)
[2020-01-03] MEDS ORDERED: methylPREDNISolone NA SUCC 40 MG/1 ML VIAL IVPUSH SCH (10:00)
--- NOTE | 2020-01-03 10:20 | PN ---
Progress Note, Physician History of Present Illness: PULMONARY ALERT,CONFUSED,MORE HYPOXIC TODAY 02 SAT 87% ON RA - Current Medication List Current Medications: Active Medications Acetaminophen (Tylenol -) 650 mg PO Q6H PRN PRN Reason: FEVER Last Admin: 01/02/20 00:46 Dose: 650 mg Documented by: Aspirin (Asa -) 81 mg PO DAILY [facility] Last Admin: 01/02/20 09:40 Dose: 81 mg Documented by: Atorvastatin Calcium (Lipitor -) 40 mg PO HS [facility] Last Admin: 01/02/20 21:53 Dose: 40 mg Documented by: Budesonide/Formoterol Fumarate (Symbicort 160/4.5mcg -) 2 puff IH BID [facility] Last Admin: 01/02/20 21:53 Dose: 2 puff Documented by: Calcium Carbonate/Cholecalciferol (Os-Bebo 500+D -) 1 tab PO BID [facility] Last Admin: 01/02/20 21:53 Dose: 1 tab Documented by: Clopidogrel Bisulfate (Plavix -) 75 mg PO DAILY [facility] Last Admin: 01/02/20 09:40 Dose: 75 mg Documented by: Ceftriaxone Sodium 2 gm/ (Dextrose) 100 mls @ 100 mls/hr IVPB DAILY [facility]; Protocol Last Admin: 01/02/20 09:34 Dose: 100 mls/hr Documented by: Azithromycin (Zithromax 500mg Ivpb (Pre-Docked)) 500 mg in 250 mls @ 250 mls/hr IVPB DAILY [facility] Last Admin: 01/02/20 09:35 Dose: 250 mls/hr Documented by: Lisinopril (Prinivil) 5 mg PO DAILY [facility] Last Admin: 01/02/20 09:40 Dose: 5 mg Documented by: Methylprednisolone Sodium Succinate (Solu-Medrol -) 40 mg IVPUSH Q12H [facility] Metoprolol Succinate (Toprol Xl -) 25 mg PO DAILY [facility] Last Admin: 01/02/20 09:39 Dose: 25 mg Documented by: Ranolazine (Ranexa -) 500 mg PO BID [facility] Last Admin: 01/02/20 21:53 Dose: 500 mg Documented by: - Objective Vital Signs: Vital Signs Temperature 98.7 F 01/03/20 06:00 Pulse Rate 86 01/03/20 06:00 Respiratory Rate 19 01/03/20 06:00 Blood Pressure 129/73 01/03/20 06:00 O2 Sat by Pulse Oximetry (%) 94 L 01/03/20 06:00 Constitutional: Yes: Well Nourished, Calm, Other (CONFUSED) Eyes: Yes: WNL HENT: Yes: WNL Neck: Yes: WNL Cardiovascular: Yes: Regular Rate and Rhythm, S1, S2 Respiratory: Yes: Rales (BILATERAL CRACKLES) Gastrointestinal: Yes: Normal Bowel Sounds, Soft Extremities: Yes: WNL Edema: No Labs: CBC, BMP 01/03/20 06:50 01/03/20 06:50 INR, PTT INR 1.03 (0.83-1.09) 12/30/19 02:15 Laboratory Tests 01/03/20 01/03/20 01/03/20 06:50 06:50 06:50 D-Dimer 615 H Ferritin 423.7 H LD Total 273 H C-Reactive Protein 9.5 H Problem List - Problems (1) COVID-19 Code(s): U07.1 - COVID POSITIVE (2) Diabetes mellitus Code(s): E11.9 - TYPE 2 DIABETES MELLITUS WITHOUT COMPLICATIONS (3) Elevated troponin Code(s): R79.89 - OTHER SPECIFIED ABNORMAL FINDINGS OF BLOOD CHEMISTRY (4) Osteoarthritis Code(s): M19.90 - UNSPECIFIED OSTEOARTHRITIS, UNSPECIFIED SITE (5) Presence of stent in coronary artery in patient with coronary artery disease Code(s): I25.10 - ATHSCL HEART DISEASE OF [place] CORONARY ARTERY W/O ANG PCTRS; Z95.5 - PRESENCE OF CORONARY ANGIOPLASTY IMPLANT AND GRAFT (6) Rhabdomyolysis Code(s): M62.82 - RHABDOMYOLYSIS (7) Syncope Code(s): R55 - SYNCOPE AND COLLAPSE Qualifiers: Syncope type: unspecified Qualified Code(s): R55 - Syncope and collapse Assessment/Plan IMP COVID 19 FEVER LIKELY SECONDARY TO ABOVE SYNCOPE + TROPONIN NSTEMI MILD-MODERATE GLOBAL HYPOKINESIS LEFT VENTRICAL HTN ASHD S/P STENT DM ? COVID ENCEPHALOPATHY PLAN SUPPLEMENTAL O2 AC INHALED BRONCHODILATORS TREND INFLAMMATORY MARKERS REMDESIVIR STEROIDS CONVALESCENT PLASMA TRANSFUSION SPOKE WITH DAUGHTER DONNELL PINTO RISK VS BENEFIT OF REMDESIVIR AND CONVALESCENT PLASMA TRANSFUSION WHO CONSENTS FOR BOTH THERAPEUTIC OPTIONS DR ROSS Problem List - Problems (1) COVID-19 Code(s): U07.1 - COVID POSITIVE (2) Diabetes mellitus Code(s): E11.9 - TYPE 2 DIABETES MELLITUS WITHOUT COMPLICATIONS (3) Elevated troponin Code(s): R79.89 - OTHER SPECIFIED ABNORMAL FINDINGS OF BLOOD CHEMISTRY (4) Osteoarthritis Code(s): M19.90 - UNSPECIFIED OSTEOARTHRITIS, UNSPECIFIED SITE (5) Presence of stent in coronary artery in patient with coronary artery disease Code(s): I25.10 - ATHSCL HEART DISEASE OF [place] CORONARY ARTERY W/O ANG PCTRS; Z95.5 - PRESENCE OF CORONARY ANGIOPLASTY IMPLANT AND GRAFT (6) Rhabdomyolysis Code(s): M62.82 - RHABDOMYOLYSIS (7) Syncope Code(s): R55 - SYNCOPE AND COLLAPSE Qualifiers: Syncope type: unspecified Qualified Code(s): R55 - Syncope and collapse
[2020-01-03] MEDS: CALCIUM 500MG/VIT-D 200 UNITS COMBO TABLET (FP) PO SCH ×2 (10:25→22:40)
[2020-01-03] MEDS: metoPROLOL SUCCINATE 25 MG TAB.SR.24H (FP) PO SCH (10:26)
[2020-01-03] MEDS: CLOPIDOGREL BISULFATE 75 MG TABLET (FP) PO SCH (10:26)
[2020-01-03] MEDS: RANOLAZINE E.R. 500 MG TABLET (FP) PO SCH ×2 (10:26→22:40)
[2020-01-03] MEDS: LISINOPRIL 5 MG TABLET PO SCH (10:26)
[2020-01-03] MEDS: ASPIRIN 81 MG CHEWABLE TABLETS PO SCH (10:26)
[2020-01-03] MEDS: BUDESONIDE/FORMETEROL FUMARATE 160/4.5 mcg INHALER IH SCH ×2 (10:27→22:40)
[2020-01-03] MEDS: AZITHROMYCIN IVPB 500 MG/250 ML BAG IVPB SCH (11:00)
[2020-01-03] MEDS: methylPREDNISolone NA SUCC 40 MG/1 ML VIAL IVPUSH SCH ×2 (12:09→22:40)
[2020-01-03] MEDS: CEFTRIAXONE 2 GM in DEXTROSE 5%-WATER 100 ML IVPB SCH (12:10)
--- NOTE | 2020-01-03 14:40 | PN ---
Progress Note, Physician Chief Complaint: AWAKE CONFUSED DENIES SOB - Current Medication List Current Medications: Active Medications Acetaminophen (Tylenol -) 650 mg PO Q6H PRN PRN Reason: FEVER Last Admin: 01/02/20 00:46 Dose: 650 mg Documented by: Aspirin (Asa -) 81 mg PO DAILY [facility] Last Admin: 01/03/20 10:26 Dose: 81 mg Documented by: Atorvastatin Calcium (Lipitor -) 40 mg PO HS [facility] Last Admin: 01/02/20 21:53 Dose: 40 mg Documented by: Budesonide/Formoterol Fumarate (Symbicort 160/4.5mcg -) 2 puff IH BID [facility] Last Admin: 01/03/20 10:27 Dose: 2 puff Documented by: Calcium Carbonate/Cholecalciferol (Os-Bebo 500+D -) 1 tab PO BID [facility] Last Admin: 01/03/20 10:25 Dose: 1 tab Documented by: Clopidogrel Bisulfate (Plavix -) 75 mg PO DAILY [facility] Last Admin: 01/03/20 10:26 Dose: 75 mg Documented by: Ceftriaxone Sodium 2 gm/ (Dextrose) 100 mls @ 100 mls/hr IVPB DAILY [facility]; Protocol Last Admin: 01/03/20 12:10 Dose: 100 mls/hr Documented by: Azithromycin (Zithromax 500mg Ivpb (Pre-Docked)) 500 mg in 250 mls @ 250 mls/hr IVPB DAILY [facility] Last Admin: 01/03/20 11:00 Dose: 250 mls/hr Documented by: Lisinopril (Prinivil) 5 mg PO DAILY [facility] Last Admin: 01/03/20 10:26 Dose: 5 mg Documented by: Methylprednisolone Sodium Succinate (Solu-Medrol -) 40 mg IVPUSH Q12H [facility] Last Admin: 01/03/20 12:09 Dose: 40 mg Documented by: Metoprolol Succinate (Toprol Xl -) 25 mg PO DAILY [facility] Last Admin: 01/03/20 10:26 Dose: 25 mg Documented by: Ranolazine (Ranexa -) 500 mg PO BID [facility] Last Admin: 01/03/20 10:26 Dose: 500 mg Documented by: - Objective Vital Signs: Vital Signs Temperature 97.8 F 01/03/20 14:00 Pulse Rate 77 01/03/20 14:00 Respiratory Rate 20 01/03/20 14:00 Blood Pressure 110/67 01/03/20 14:00 O2 Sat by Pulse Oximetry (%) 90 L 01/03/20 10:00 Constitutional: Yes: Mild Distress Cardiovascular: Yes: Pulse Irregular Respiratory: Yes: Diminished, On Nasal O2, Rhonchi Musculoskeletal: Yes: Muscle Weakness Neurological: Yes: Confusion Labs: CBC, BMP 01/03/20 06:50 01/03/20 06:50 INR, PTT INR 1.03 (0.83-1.09) 12/30/19 02:15 Problem List - Problems (1) COVID-19 Code(s): U07.1 - COVID POSITIVE (2) Diabetes mellitus Code(s): E11.9 - TYPE 2 DIABETES MELLITUS WITHOUT COMPLICATIONS (3) Elevated troponin Code(s): R79.89 - OTHER SPECIFIED ABNORMAL FINDINGS OF BLOOD CHEMISTRY (4) Fall Code(s): W19.XXXA - UNSPECIFIED FALL, INITIAL ENCOUNTER Qualifiers: Encounter type: initial encounter Qualified Code(s): W19.XXXA - Unspecified fall, initial encounter (5) HTN (hypertension) Code(s): I10 - ESSENTIAL (PRIMARY) HYPERTENSION (6) Osteoarthritis Code(s): M19.90 - UNSPECIFIED OSTEOARTHRITIS, UNSPECIFIED SITE (7) Presence of stent in coronary artery in patient with coronary artery disease Code(s): I25.10 - ATHSCL HEART DISEASE OF [place] CORONARY ARTERY W/O ANG PCTRS; Z95.5 - PRESENCE OF CORONARY ANGIOPLASTY IMPLANT AND GRAFT Assessment/Plan COVID 19 POSITIVE ON ISOLATION PULM/ID CONSULT APPRECIATED DEMISLIVIR CONSENT OBTAINED FROM DAUGHTER VIVI [facility] EVAL APPRECIATED AGREE WITH CONSERVATIVE MANAGEMENT FOR NOW FOR ELEVATED TROPONINS IV FLUIDS CHECK LABS DVT PROPHYLAXIS D/W DAUGHTER ON IV ABX/NEBS/02 SUPPORT
[2020-01-03] MEDS ORDERED: REMDESIVIR 200 MG in SODIUM CHLORIDE 210 ML IVPB ONE (15:16)
[2020-01-03] MEDS: ATORVASTATIN CA 40 MG TABLET (FP) PO SCH (22:40)
[2020-01-04 07:31] LABS: HEMATOCRIT 48.3 % (32.4-45.2); HEMOGLOBIN 15.9 GM/dL (10.7-15.3); MCH 28.7 pg (25.7-33.7); MCHC 32.9 g/dl (32.0-36.0); MEAN CELL VOLUME 87.2 fl (80-96); MEAN PLT VOLUME 8.7 fl (7.5-11.1); PLATELET COUNT 216 K/MM3 (134-434); RBC 5.54 M/mm3 (3.60-5.2); RDW 15.3 % (11.6-15.6); WHITE BLOOD COUNT 7.4 K/mm3 (4.0-10.0)
[2020-01-04] MEDS ORDERED: PT OWN MED DRAWER 7, Y5N ONE ×2 (09:32→14:36)
[2020-01-04] MEDS ORDERED: DEXTROSE 5%-WATER 100 ML IVPB ONE (09:34)
[2020-01-04] MEDS: CEFTRIAXONE 2 GM in DEXTROSE 5%-WATER 100 ML IVPB SCH (10:39)
[2020-01-04] MEDS: ASPIRIN 81 MG CHEWABLE TABLETS PO SCH (10:39)
[2020-01-04] MEDS: BUDESONIDE/FORMETEROL FUMARATE 160/4.5 mcg INHALER IH SCH ×2 (10:39→22:31)
[2020-01-04] MEDS: CLOPIDOGREL BISULFATE 75 MG TABLET (FP) PO SCH (10:39)
[2020-01-04] MEDS: LISINOPRIL 5 MG TABLET PO SCH (10:39)
[2020-01-04] MEDS: CALCIUM 500MG/VIT-D 200 UNITS COMBO TABLET (FP) PO SCH ×2 (10:39→22:31)
[2020-01-04] MEDS: AZITHROMYCIN IVPB 500 MG/250 ML BAG IVPB SCH (10:39)
[2020-01-04] MEDS: RANOLAZINE E.R. 500 MG TABLET (FP) PO SCH ×2 (10:39→22:31)
[2020-01-04] MEDS: metoPROLOL SUCCINATE 25 MG TAB.SR.24H (FP) PO SCH (10:39)
[2020-01-04] MEDS: methylPREDNISolone NA SUCC 40 MG/1 ML VIAL IVPUSH SCH ×2 (10:40→22:32)
--- NOTE | 2020-01-04 11:04 | PN ---
Progress Note, Physician Chief Complaint: ANXIOUS, TOOK HER FACTORY HAND OFF DESATURATION OF 02 90% ON 02 SUPPORT - Current Medication List Current Medications: Active Medications Acetaminophen (Tylenol -) 650 mg PO Q6H PRN PRN Reason: FEVER Last Admin: 01/02/20 00:46 Dose: 650 mg Documented by: Aspirin (Asa -) 81 mg PO DAILY [facility] Last Admin: 01/04/20 10:39 Dose: 81 mg Documented by: Atorvastatin Calcium (Lipitor -) 40 mg PO HS [facility] Last Admin: 01/03/20 22:40 Dose: 40 mg Documented by: Budesonide/Formoterol Fumarate (Symbicort 160/4.5mcg -) 2 puff IH BID [facility] Last Admin: 01/04/20 10:39 Dose: 2 puff Documented by: Calcium Carbonate/Cholecalciferol (Os-Bebo 500+D -) 1 tab PO BID [facility] Last Admin: 01/04/20 10:39 Dose: 1 tab Documented by: Clopidogrel Bisulfate (Plavix -) 75 mg PO DAILY [facility] Last Admin: 01/04/20 10:39 Dose: 75 mg Documented by: Ceftriaxone Sodium 2 gm/ (Dextrose) 100 mls @ 100 mls/hr IVPB DAILY [facility]; Protocol Last Admin: 01/04/20 10:39 Dose: 100 mls/hr Documented by: Azithromycin (Zithromax 500mg Ivpb (Pre-Docked)) 500 mg in 250 mls @ 250 mls/hr IVPB DAILY [facility] Last Admin: 01/04/20 10:39 Dose: 250 mls/hr Documented by: Non-Formulary Medication 100 (mg/ Sodium Chloride) 250 mls @ 250 mls/hr IVPB DAILY@1600 [facility] Stop: 01/07/20 16:59 Lisinopril (Prinivil) 5 mg PO DAILY [facility] Last Admin: 01/04/20 10:39 Dose: 5 mg Documented by: Methylprednisolone Sodium Succinate (Solu-Medrol -) 40 mg IVPUSH Q12H [facility] Last Admin: 01/04/20 10:40 Dose: 40 mg Documented by: Metoprolol Succinate (Toprol Xl -) 25 mg PO DAILY [facility] Last Admin: 01/04/20 10:39 Dose: 25 mg Documented by: Ranolazine (Ranexa -) 500 mg PO BID [facility] Last Admin: 01/04/20 10:39 Dose: 500 mg Documented by: - Objective Vital Signs: Vital Signs Temperature 97.6 F 01/04/20 06:00 Pulse Rate 82 01/04/20 06:00 Respiratory Rate 19 01/04/20 06:00 Blood Pressure 148/78 01/04/20 06:00 O2 Sat by Pulse Oximetry (%) 90 L 01/04/20 06:00 Constitutional: Yes: Moderate Distress Cardiovascular: Yes: Tachycardia, Pulse Irregular Respiratory: Yes: Diminished, On Nasal O2 Gastrointestinal: Yes: Soft Genitourinary: Yes: Incontinence Musculoskeletal: Yes: Muscle Weakness Neurological: Yes: Confusion Labs: CBC, BMP 01/04/20 05:09 01/03/20 06:50 INR, PTT INR 1.03 (0.83-1.09) 12/30/19 02:15 Problem List - Problems (1) COVID-19 Code(s): U07.1 - COVID POSITIVE (2) Diabetes mellitus Code(s): E11.9 - TYPE 2 DIABETES MELLITUS WITHOUT COMPLICATIONS (3) Elevated troponin Code(s): R79.89 - OTHER SPECIFIED ABNORMAL FINDINGS OF BLOOD CHEMISTRY (4) Fall Code(s): W19.XXXA - UNSPECIFIED FALL, INITIAL ENCOUNTER Qualifiers: Encounter type: initial encounter Qualified Code(s): W19.XXXA - Unspecified fall, initial encounter (5) HTN (hypertension) Code(s): I10 - ESSENTIAL (PRIMARY) HYPERTENSION (6) Osteoarthritis Code(s): M19.90 - UNSPECIFIED OSTEOARTHRITIS, UNSPECIFIED SITE (7) Presence of stent in coronary artery in patient with coronary artery disease Code(s): I25.10 - ATHSCL HEART DISEASE OF [place] CORONARY ARTERY W/O ANG PCTRS; Z95.5 - PRESENCE OF CORONARY ANGIOPLASTY IMPLANT AND GRAFT Assessment/Plan COVID 19 POSITIVE ON ISOLATION PULM/ID CONSULT APPRECIATED STEROID IV FOR PULM SUPPORT DEMISLIVIR CONSENT OBTAINED FROM DAUGHTER VIVI [facility] EVAL APPRECIATED AGREE WITH CONSERVATIVE MANAGEMENT FOR NOW FOR ELEVATED TROPONINS IV FLUIDS CHECK LABS DVT PROPHYLAXIS D/W DAUGHTER ON IV ABX/NEBS/02 SUPPORT
[2020-01-04] MEDS: INSULIN SLIDING SCALE (NOVOLOG) 1 VIAL SQ SCH ×3 (12:53→22:31)
[2020-01-04] MEDS: REMDESIVIR 100 MG in SODIUM CHLORIDE 230 ML IVPB SCH (16:33)
[2020-01-04] MEDS: ATORVASTATIN CA 40 MG TABLET (FP) PO SCH (22:31)
[2020-01-05] MEDS: INSULIN SLIDING SCALE (NOVOLOG) 1 VIAL SQ SCH ×4 (06:45→23:59)
[2020-01-05 06:58] LABS: HEMATOCRIT 44.6 % (32.4-45.2); HEMOGLOBIN 15.1 GM/dL (10.7-15.3); MCH 28.9 pg (25.7-33.7); MCHC 33.8 g/dl (32.0-36.0); MEAN CELL VOLUME 85.3 fl (80-96); MEAN PLT VOLUME 9.3 fl (7.5-11.1); PLATELET COUNT 274 K/MM3 (134-434); RBC 5.23 M/mm3 (3.60-5.2); RDW 15.3 % (11.6-15.6); WHITE BLOOD COUNT 10.7 K/mm3 (4.0-10.0)
[2020-01-05] MEDS ORDERED: DEXTROSE 5%-WATER 100 ML IVPB ONE (08:50)
[2020-01-05] MEDS: CLOPIDOGREL BISULFATE 75 MG TABLET (FP) PO SCH (10:01)
[2020-01-05] MEDS: ASPIRIN 81 MG CHEWABLE TABLETS PO SCH (10:01)
[2020-01-05] MEDS: LISINOPRIL 5 MG TABLET PO SCH (10:01)
[2020-01-05] MEDS: CALCIUM 500MG/VIT-D 200 UNITS COMBO TABLET (FP) PO SCH ×2 (10:01→22:53)
[2020-01-05] MEDS: RANOLAZINE E.R. 500 MG TABLET (FP) PO SCH ×2 (10:01→22:53)
[2020-01-05] MEDS: CEFTRIAXONE 2 GM in DEXTROSE 5%-WATER 100 ML IVPB SCH (10:01)
[2020-01-05] MEDS: metoPROLOL SUCCINATE 25 MG TAB.SR.24H (FP) PO SCH (10:01)
[2020-01-05] MEDS: AZITHROMYCIN IVPB 500 MG/250 ML BAG IVPB SCH (10:01)
[2020-01-05] MEDS: BUDESONIDE/FORMETEROL FUMARATE 160/4.5 mcg INHALER IH SCH ×2 (10:01→22:53)
--- NOTE | 2020-01-05 11:30 | PN ---
Progress Note (short form) - Note Progress Note: PULMONARY No overall change in condition Less confusion/but still pulling out IV VSS/afebrile Constitutional: Yes: Well Nourished, Calm, Other (CONFUSED) Eyes: Yes: WNL HENT: Yes: WNL Neck: Yes: WNL Cardiovascular: Yes: Regular Rate and Rhythm, S1, S2 Respiratory: Yes: Rales (BILATERAL CRACKLES) Gastrointestinal: Yes: Normal Bowel Sounds, Soft Extremities: Yes: WNL Edema: No Labs/images/notes/meds NOTED IMP COVID 19 SYNCOPE + TROPONIN NSTEMI GLOBAL HYPOKINESIS LEFT VENTRICAL HTN ASHD S/P STENT DM ? COVID ENCEPHALOPATHY PLAN SUPPLEMENTAL O2 AC INHALED BRONCHODILATORS TREND INFLAMMATORY MARKERS REMDESIVIR MAY CHANGE STEROIDS TO ORAL IF IV ACCESS IS INTERRUPTED CONVALESCENT PLASMA TRANSFUSION Kayla NAVA MD
[2020-01-05] MEDS: methylPREDNISolone NA SUCC 40 MG/1 ML VIAL IVPUSH SCH (11:53)
--- NOTE | 2020-01-05 12:52 | PN ---
Progress Note, Physician - Current Medication List Current Medications: Active Medications Acetaminophen (Tylenol -) 650 mg PO Q6H PRN PRN Reason: FEVER Last Admin: 01/02/20 00:46 Dose: 650 mg Documented by: Aspirin (Asa -) 81 mg PO DAILY [facility] Last Admin: 01/05/20 10:01 Dose: 81 mg Documented by: Atorvastatin Calcium (Lipitor -) 40 mg PO HS [facility] Last Admin: 01/04/20 22:31 Dose: 40 mg Documented by: Budesonide/Formoterol Fumarate (Symbicort 160/4.5mcg -) 2 puff IH BID [facility] Last Admin: 01/05/20 10:01 Dose: 2 puff Documented by: Calcium Carbonate/Cholecalciferol (Os-Bebo 500+D -) 1 tab PO BID [facility] Last Admin: 01/05/20 10:01 Dose: 1 tab Documented by: Clopidogrel Bisulfate (Plavix -) 75 mg PO DAILY [facility] Last Admin: 01/05/20 10:01 Dose: 75 mg Documented by: Ceftriaxone Sodium 2 gm/ (Dextrose) 100 mls @ 100 mls/hr IVPB DAILY [facility]; Protocol Last Admin: 01/05/20 10:01 Dose: 100 mls/hr Documented by: Azithromycin (Zithromax 500mg Ivpb (Pre-Docked)) 500 mg in 250 mls @ 250 mls/hr IVPB DAILY [facility] Last Admin: 01/05/20 10:01 Dose: 250 mls/hr Documented by: Non-Formulary Medication 100 (mg/ Sodium Chloride) 250 mls @ 250 mls/hr IVPB DAILY@1600 [facility] Stop: 01/07/20 16:59 Last Admin: 01/04/20 16:33 Dose: 250 mls/hr Documented by: Insulin Aspart (Novolog Vial Sliding Scale -) 1 vial SQ ACHS [facility]; Protocol Last Admin: 01/05/20 11:53 Dose: 8 units Documented by: Lisinopril (Prinivil) 5 mg PO DAILY [facility] Last Admin: 01/05/20 10:01 Dose: 5 mg Documented by: Methylprednisolone Sodium Succinate (Solu-Medrol -) 40 mg IVPUSH Q12H [facility] Last Admin: 01/05/20 11:53 Dose: 40 mg Documented by: Metoprolol Succinate (Toprol Xl -) 25 mg PO DAILY [facility] Last Admin: 01/05/20 10:01 Dose: 25 mg Documented by: Ranolazine (Ranexa -) 500 mg PO BID [facility] Last Admin: 01/05/20 10:01 Dose: 500 mg Documented by: - Objective Vital Signs: Vital Signs Temperature 98.2 F 01/05/20 10:00 Pulse Rate 82 01/05/20 10:00 Respiratory Rate 22 H 01/05/20 10:00 Blood Pressure 136/74 01/05/20 10:00 O2 Sat by Pulse Oximetry (%) 90 L 01/05/20 10:00 Cardiovascular: Yes: S1, S2 Respiratory: Yes: Rales Labs: CBC, BMP 01/05/20 05:50 01/03/20 06:50 INR, PTT INR 1.03 (0.83-1.09) 12/30/19 02:15 Assessment/Plan - Problems (1) Presence of stent in coronary artery in patient with coronary artery disease Assessment/Plan: -Continue plavix + ASA + Statin -OFF Heparin drip Problems reviewed: Yes Code(s): I25.10 - ATHSCL HEART DISEASE OF [place] CORONARY ARTERY W/O ANG PCTRS; Z95.5 - PRESENCE OF CORONARY ANGIOPLASTY IMPLANT AND GRAFT (2) Diabetes mellitus Assessment/Plan: -Check A1c -BGM AC HS -ISS -Diabetic low sodium diet Problems reviewed: Yes Code(s): E11.9 - TYPE 2 DIABETES MELLITUS WITHOUT COMPLICATIONS (3) Elevated troponin Assessment/Plan: -Continue plavix + ASA + Statin -OFF Heparin drip -Telemetry -CK 525/Trops 4.46> 2.96>2.36 -EKG (1st) sinus, lafb, anterolateral infarct, no acute st changes -EKG (2nd) with new anterior TWI -Echo -Decrease lisinopril to 5 mg po daily -Start Toprol XL at 25 mg po daily Problems reviewed: Yes Code(s): R79.89 - OTHER SPECIFIED ABNORMAL FINDINGS OF BLOOD CHEMISTRY (4) Fall Assessment/Plan: -safety precautions -Physical therapy -Check UA/UC Problems reviewed: Yes Code(s): W19.XXXA - UNSPECIFIED FALL, INITIAL ENCOUNTER Qualifiers: Encounter type: initial encounter Qualified Code(s): W19.XXXA - Unspecified fall, initial encounter (5) HTN (hypertension) Assessment/Plan: -Resume lisinopril at 5 mg po daily -Toprol 25 mg po daily Problems reviewed: Yes Code(s): I10 - ESSENTIAL (PRIMARY) HYPERTENSION (6) COVID Assessment/Plan: - Orders 01/03/20 11:30 Methylprednisolone Na Succ [Solu-Medrol -] 40 mg IVPUSH Q12H Orders 01/04/20 16:00 Remdesivir 100 mg Sodium Chloride [Normal Saline -] 230 ml IVPB DAILY@1600
[2020-01-05] MEDS: REMDESIVIR 100 MG in SODIUM CHLORIDE 230 ML IVPB SCH (16:46)
[2020-01-05] MEDS: ATORVASTATIN CA 40 MG TABLET (FP) PO SCH (22:53)
[2020-01-06] MEDS: INSULIN SLIDING SCALE (NOVOLOG) 1 VIAL SQ SCH ×4 (06:53→21:40)
[2020-01-06] MEDS ORDERED: DEXTROSE 5%-WATER 100 ML IVPB ONE (08:13)
[2020-01-06] MEDS: CEFTRIAXONE 2 GM in DEXTROSE 5%-WATER 100 ML IVPB SCH (09:00)
[2020-01-06] MEDS: ASPIRIN 81 MG CHEWABLE TABLETS PO SCH (09:12)
[2020-01-06] MEDS: AZITHROMYCIN IVPB 500 MG/250 ML BAG IVPB SCH (09:12)
[2020-01-06] MEDS: CLOPIDOGREL BISULFATE 75 MG TABLET (FP) PO SCH (09:12)
[2020-01-06] MEDS: CALCIUM 500MG/VIT-D 200 UNITS COMBO TABLET (FP) PO SCH ×2 (09:12→21:40)
[2020-01-06] MEDS: LISINOPRIL 5 MG TABLET PO SCH (09:12)
[2020-01-06] MEDS: RANOLAZINE E.R. 500 MG TABLET (FP) PO SCH ×2 (09:12→21:40)
[2020-01-06] MEDS: metoPROLOL SUCCINATE 25 MG TAB.SR.24H (FP) PO SCH (09:12)
[2020-01-06] MEDS: BUDESONIDE/FORMETEROL FUMARATE 160/4.5 mcg INHALER IH SCH ×2 (09:13→21:40)
[2020-01-06 10:39] LABS: BASO % 0.1 % (0-2.0); HEMATOCRIT 45.3 % (32.4-45.2); HEMOGLOBIN 15.3 GM/dL (10.7-15.3); LYMPH % 7.3 % (8-40); MCH 28.6 pg (25.7-33.7); MCHC 33.7 g/dl (32.0-36.0); MEAN CELL VOLUME 84.8 fl (80-96); MEAN PLT VOLUME 8.6 fl (7.5-11.1); MONO % 12.4 % (3.8-10.2); NEUT % 80.2 % (42.8-82.8); PLATELET COUNT 317 K/MM3 (134-434); RBC 5.34 M/mm3 (3.60-5.2); RDW 15.6 % (11.6-15.6); WHITE BLOOD COUNT 11.3 K/mm3 (4.0-10.0)
[2020-01-06 11:24] LABS: ALBUMIN 2.7 g/dl (3.4-5.0); CALCIUM 8.5 mg/dL (8.5-10.1); POTASSIUM 3.9 mmol/L (3.5-5.1)
[2020-01-06] MEDS: methylPREDNISolone NA SUCC 40 MG/1 ML VIAL IVPUSH SCH ×2 (11:30)
[2020-01-06 11:31] LABS: BILIRUBIN,TOTAL 0.8 mg/dL (0.2-1); BLOOD UREA NITROGEN 35.5 mg/dL (7-18); CREATININE 1.1 mg/dL (0.55-1.3); TOT PROT 6.3 g/dl (6.4-8.2)
--- NOTE | 2020-01-06 12:05 | PN ---
Progress Note, Physician - Current Medication List Current Medications: Active Medications Acetaminophen (Tylenol -) 650 mg PO Q6H PRN PRN Reason: FEVER Last Admin: 01/02/20 00:46 Dose: 650 mg Documented by: Aspirin (Asa -) 81 mg PO DAILY [facility] Last Admin: 01/06/20 09:12 Dose: 81 mg Documented by: Atorvastatin Calcium (Lipitor -) 40 mg PO HS [facility] Last Admin: 01/05/20 22:53 Dose: 40 mg Documented by: Budesonide/Formoterol Fumarate (Symbicort 160/4.5mcg -) 2 puff IH BID [facility] Last Admin: 01/06/20 09:13 Dose: 2 puff Documented by: Calcium Carbonate/Cholecalciferol (Os-Bebo 500+D -) 1 tab PO BID [facility] Last Admin: 01/06/20 09:12 Dose: 1 tab Documented by: Clopidogrel Bisulfate (Plavix -) 75 mg PO DAILY [facility] Last Admin: 01/06/20 09:12 Dose: 75 mg Documented by: Ceftriaxone Sodium 2 gm/ (Dextrose) 100 mls @ 100 mls/hr IVPB DAILY [facility]; Protocol Last Admin: 01/06/20 09:00 Dose: 100 mls/hr Documented by: Azithromycin (Zithromax 500mg Ivpb (Pre-Docked)) 500 mg in 250 mls @ 250 mls/hr IVPB DAILY [facility] Last Admin: 01/06/20 09:12 Dose: 250 mls/hr Documented by: Non-Formulary Medication 100 (mg/ Sodium Chloride) 250 mls @ 250 mls/hr IVPB DAILY@1600 [facility] Stop: 01/07/20 16:59 Last Admin: 01/05/20 16:46 Dose: 250 mls/hr Documented by: Insulin Aspart (Novolog Vial Sliding Scale -) 1 vial SQ ACHS [facility]; Protocol Last Admin: 01/06/20 06:53 Dose: 4 units Documented by: Lisinopril (Prinivil) 5 mg PO DAILY [facility] Last Admin: 01/06/20 09:12 Dose: 5 mg Documented by: Methylprednisolone Sodium Succinate (Solu-Medrol -) 40 mg IVPUSH Q12H [facility] Last Admin: 01/06/20 11:30 Dose: 40 mg Documented by: Metoprolol Succinate (Toprol Xl -) 25 mg PO DAILY [facility] Last Admin: 01/06/20 09:12 Dose: 25 mg Documented by: Ranolazine (Ranexa -) 500 mg PO BID [facility] Last Admin: 01/06/20 09:12 Dose: 500 mg Documented by: - Objective Vital Signs: Vital Signs Temperature 97.8 F 01/06/20 10:00 Pulse Rate 75 01/06/20 10:00 Respiratory Rate 22 H 01/06/20 10:00 Blood Pressure 140/76 01/06/20 10:00 O2 Sat by Pulse Oximetry (%) 90 L 01/06/20 10:00 Labs: CBC, BMP 01/06/20 10:30 01/06/20 10:30 INR, PTT INR 1.03 (0.83-1.09) 12/30/19 02:15 Assessment/Plan - Problems (1) Presence of stent in coronary artery in patient with coronary artery disease Assessment/Plan: -Continue plavix + ASA + Statin -OFF Heparin drip Problems reviewed: Yes Code(s): I25.10 - ATHSCL HEART DISEASE OF [place] CORONARY ARTERY W/O ANG PCTRS; Z95.5 - PRESENCE OF CORONARY ANGIOPLASTY IMPLANT AND GRAFT (2) Diabetes mellitus Assessment/Plan: -Check A1c -BGM AC HS -ISS -Diabetic low sodium diet Problems reviewed: Yes Code(s): E11.9 - TYPE 2 DIABETES MELLITUS WITHOUT COMPLICATIONS (3) Elevated troponin Assessment/Plan: -Continue plavix + ASA + Statin -OFF Heparin drip -Telemetry -CK 525/Trops 4.46> 2.96>2.36.>>.04 -EKG (1st) sinus, lafb, anterolateral infarct, no acute st changes -EKG (2nd) with new anterior TWI -Echo -Decrease lisinopril to 5 mg po daily -Start Toprol XL at 25 mg po daily Problems reviewed: Yes Code(s): R79.89 - OTHER SPECIFIED ABNORMAL FINDINGS OF BLOOD CHEMISTRY (4) Fall Assessment/Plan: -safety precautions -Physical therapy -Check UA/UC Problems reviewed: Yes Code(s): W19.XXXA - UNSPECIFIED FALL, INITIAL ENCOUNTER Qualifiers: Encounter type: initial encounter Qualified Code(s): W19.XXXA - Unspecified fall, initial encounter (5) HTN (hypertension) Assessment/Plan: -Resume lisinopril at 5 mg po daily -Toprol 25 mg po daily Problems reviewed: Yes Code(s): I10 - ESSENTIAL (PRIMARY) HYPERTENSION (6) COVID Assessment/Plan: - Orders 01/03/20 11:30 Methylprednisolone Na Succ [Solu-Medrol -] 40 mg IVPUSH Q12H Orders 01/04/20 16:00 Remdesivir 100 mg Sodium Chloride [Normal Saline -] 230 ml IVPB DAILY@1600
--- NOTE | 2020-01-06 12:08 | PN ---
Progress Note (short form) - Note Progress Note: PULMONARY No overall change in condition/confused still pulling out IV VSS/afebrile Constitutional: Yes: Well Nourished, Calm, Other (CONFUSED) Eyes: Yes: WNL HENT: Yes: WNL Neck: Yes: WNL Cardiovascular: Yes: Regular Rate and Rhythm, S1, S2 Respiratory: Yes: Rales (BILATERAL CRACKLES) Gastrointestinal: Yes: Normal Bowel Sounds, Soft Extremities: Yes: WNL Edema: No Labs/images/notes/meds NOTED IMP COVID 19 SYNCOPE + TROPONIN NSTEMI GLOBAL HYPOKINESIS LEFT VENTRICAL HTN ASHD S/P STENT DM ? COVID ENCEPHALOPATHY PLAN SUPPLEMENTAL O2 AC INHALED BRONCHODILATORS TREND INFLAMMATORY MARKERS REMDESIVIR HAVE CHANGED TO ORAL STEROIDS CONVALESCENT PLASMA TRANSFUSION Kayla NAVA MD
[2020-01-06] MEDS: REMDESIVIR 100 MG in SODIUM CHLORIDE 230 ML IVPB SCH (16:00)
[2020-01-06] MEDS: predniSONE 20 MG TABLET (UD) PO SCH (17:38)
[2020-01-06] MEDS: ATORVASTATIN CA 40 MG TABLET (FP) PO SCH (21:40)
[2020-01-07] MEDS: INSULIN SLIDING SCALE (NOVOLOG) 1 VIAL SQ SCH ×4 (06:43→22:01)
[2020-01-07 08:13] LABS: ALBUMIN 2.7 g/dl (3.4-5.0); BILIRUBIN,TOTAL 0.9 mg/dL (0.2-1); BLOOD UREA NITROGEN 31.2 mg/dL (7-18); CALCIUM 8.5 mg/dL (8.5-10.1); POTASSIUM 3.8 mmol/L (3.5-5.1); TOT PROT 6.1 g/dl (6.4-8.2)
[2020-01-07 08:51] LABS: BASO % 0.1 % (0-2.0); HEMATOCRIT 45.3 % (32.4-45.2); HEMOGLOBIN 15.2 GM/dL (10.7-15.3); LYMPH % 6.4 % (8-40); MCH 28.7 pg (25.7-33.7); MCHC 33.5 g/dl (32.0-36.0); MEAN CELL VOLUME 85.6 fl (80-96); MEAN PLT VOLUME 9.3 fl (7.5-11.1); MONO % 8.9 % (3.8-10.2); NEUT % 84.6 % (42.8-82.8); PLATELET COUNT 306 K/MM3 (134-434); RBC 5.29 M/mm3 (3.60-5.2); RDW 15.5 % (11.6-15.6); WHITE BLOOD COUNT 12.1 K/mm3 (4.0-10.0)
[2020-01-07] MEDS ORDERED: DEXTROSE 5%-WATER 100 ML IVPB ONE (08:57)
[2020-01-07] MEDS: LISINOPRIL 5 MG TABLET PO SCH (11:32)
[2020-01-07] MEDS: CALCIUM 500MG/VIT-D 200 UNITS COMBO TABLET (FP) PO SCH ×2 (11:32→22:01)
[2020-01-07] MEDS: predniSONE 20 MG TABLET (UD) PO SCH (11:32)
[2020-01-07] MEDS: CLOPIDOGREL BISULFATE 75 MG TABLET (FP) PO SCH (11:32)
[2020-01-07] MEDS: CEFTRIAXONE 2 GM in DEXTROSE 5%-WATER 100 ML IVPB SCH (11:32)
[2020-01-07] MEDS: BUDESONIDE/FORMETEROL FUMARATE 160/4.5 mcg INHALER IH SCH ×2 (11:32→22:03)
[2020-01-07] MEDS: RANOLAZINE E.R. 500 MG TABLET (FP) PO SCH ×2 (11:32→22:01)
[2020-01-07] MEDS: ASPIRIN 81 MG CHEWABLE TABLETS PO SCH (11:32)
[2020-01-07] MEDS: metoPROLOL SUCCINATE 25 MG TAB.SR.24H (FP) PO SCH (11:33)
[2020-01-07] MEDS: AZITHROMYCIN IVPB 500 MG/250 ML BAG IVPB SCH (11:33)
--- NOTE | 2020-01-07 12:13 | PN ---
Progress Note (short form) - Note Progress Note: PULMONARY Confused, saturating well on room air. No fevers recorded. Vital Signs Period Temp Pulse Resp BP Sys/Carroll Pulse Ox Last 24 Hr 97 F-98 F 73-82 20-22 120-156/54-87 92-93 Gen: confused Heart: RRR Lung: decreased breath sounds at the bases Abd: soft, nontender Ext: no edema CBC, BMP 01/07/20 06:52 01/07/20 06:52 Active Medications Acetaminophen (Tylenol -) 650 mg PO Q6H PRN PRN Reason: FEVER Last Admin: 01/02/20 00:46 Dose: 650 mg Documented by: Aspirin (Asa -) 81 mg PO DAILY [facility] Last Admin: 01/07/20 11:32 Dose: 81 mg Documented by: Atorvastatin Calcium (Lipitor -) 40 mg PO HS [facility] Last Admin: 01/06/20 21:40 Dose: 40 mg Documented by: Budesonide/Formoterol Fumarate (Symbicort 160/4.5mcg -) 2 puff IH BID [facility] Last Admin: 01/07/20 11:32 Dose: 2 puff Documented by: Calcium Carbonate/Cholecalciferol (Os-Bebo 500+D -) 1 tab PO BID [facility] Last Admin: 01/07/20 11:32 Dose: 1 tab Documented by: Clopidogrel Bisulfate (Plavix -) 75 mg PO DAILY [facility] Last Admin: 01/07/20 11:32 Dose: 75 mg Documented by: Ceftriaxone Sodium 2 gm/ (Dextrose) 100 mls @ 100 mls/hr IVPB DAILY [facility]; Protocol Last Admin: 01/07/20 11:32 Dose: 100 mls/hr Documented by: Azithromycin (Zithromax 500mg Ivpb (Pre-Docked)) 500 mg in 250 mls @ 250 mls/hr IVPB DAILY [facility] Last Admin: 01/07/20 11:33 Dose: 250 mls/hr Documented by: Non-Formulary Medication 100 (mg/ Sodium Chloride) 250 mls @ 250 mls/hr IVPB DAILY@1600 [facility] Stop: 01/07/20 16:59 Last Admin: 01/06/20 16:00 Dose: 250 mls/hr Documented by: Insulin Aspart (Novolog Vial Sliding Scale -) 1 vial SQ ACHS [facility]; Protocol Last Admin: 01/07/20 11:58 Dose: 2 units Documented by: Lisinopril (Prinivil) 5 mg PO DAILY [facility] Last Admin: 01/07/20 11:32 Dose: 5 mg Documented by: Metoprolol Succinate (Toprol Xl -) 25 mg PO DAILY [facility] Last Admin: 01/07/20 11:33 Dose: 25 mg Documented by: Prednisone (Deltasone -) 40 mg PO DAILY [facility] Last Admin: 01/07/20 11:32 Dose: 40 mg Documented by: Ranolazine (Ranexa -) 500 mg PO BID [facility] Last Admin: 01/07/20 11:32 Dose: 500 mg Documented by: A/P COVID19 Pneumonitis Hypoxia CAD Acute NSTEMI LV Systolic Dysfunction DM HTN - last dose of remdesivir today - O2 to keep SpO2 >90% - continue steroids - on empiric antibiotics - trend inflammatory markers - DVT prophylaxis
--- NOTE | 2020-01-07 14:48 | PN ---
Progress Note, Physician Chief Complaint: MORE AWAKE AND ALERT TODAY DENIES CHEST PAIN AND DENIES SOB - Current Medication List Current Medications: Active Medications Acetaminophen (Tylenol -) 650 mg PO Q6H PRN PRN Reason: FEVER Last Admin: 01/02/20 00:46 Dose: 650 mg Documented by: Aspirin (Asa -) 81 mg PO DAILY [facility] Last Admin: 01/07/20 11:32 Dose: 81 mg Documented by: Atorvastatin Calcium (Lipitor -) 40 mg PO HS [facility] Last Admin: 01/06/20 21:40 Dose: 40 mg Documented by: Budesonide/Formoterol Fumarate (Symbicort 160/4.5mcg -) 2 puff IH BID [facility] Last Admin: 01/07/20 11:32 Dose: 2 puff Documented by: Calcium Carbonate/Cholecalciferol (Os-Bebo 500+D -) 1 tab PO BID [facility] Last Admin: 01/07/20 11:32 Dose: 1 tab Documented by: Clopidogrel Bisulfate (Plavix -) 75 mg PO DAILY [facility] Last Admin: 01/07/20 11:32 Dose: 75 mg Documented by: Enoxaparin Sodium (Lovenox -) 40 mg SQ DAILY [facility] Ceftriaxone Sodium 2 gm/ (Dextrose) 100 mls @ 100 mls/hr IVPB DAILY [facility]; Protocol Last Admin: 01/07/20 11:32 Dose: 100 mls/hr Documented by: Azithromycin (Zithromax 500mg Ivpb (Pre-Docked)) 500 mg in 250 mls @ 250 mls/hr IVPB DAILY [facility] Last Admin: 01/07/20 11:33 Dose: 250 mls/hr Documented by: Non-Formulary Medication 100 (mg/ Sodium Chloride) 250 mls @ 250 mls/hr IVPB DAILY@1600 [facility] Stop: 01/07/20 16:59 Last Admin: 01/06/20 16:00 Dose: 250 mls/hr Documented by: Insulin Aspart (Novolog Vial Sliding Scale -) 1 vial SQ [facility]; Protocol Last Admin: 01/07/20 11:58 Dose: 2 units Documented by: Lisinopril (Prinivil) 5 mg PO DAILY [facility] Last Admin: 01/07/20 11:32 Dose: 5 mg Documented by: Metoprolol Succinate (Toprol Xl -) 25 mg PO DAILY [facility] Last Admin: 01/07/20 11:33 Dose: 25 mg Documented by: Prednisone (Deltasone -) 40 mg PO DAILY [facility] Last Admin: 01/07/20 11:32 Dose: 40 mg Documented by: Ranolazine (Ranexa -) 500 mg PO BID [facility] Last Admin: 01/07/20 11:32 Dose: 500 mg Documented by: - Objective Vital Signs: Vital Signs Temperature 98.3 F 01/07/20 14:00 Pulse Rate 72 01/07/20 14:00 Respiratory Rate 01/07/20 06:00 Blood Pressure 122/66 01/07/20 14:00 O2 Sat by Pulse Oximetry (%) 92 L 01/07/20 06:00 Constitutional: Yes: No Distress Cardiovascular: Yes: Regular Rate and Rhythm Respiratory: Yes: Diminished Gastrointestinal: Yes: Soft, Abdomen, Obese Genitourinary: Yes: Incontinence Musculoskeletal: Yes: Muscle Weakness Neurological: Yes: Pre-Existing Deficit Labs: CBC, BMP 01/07/20 06:52 01/07/20 06:52 INR, PTT INR 1.03 (0.83-1.09) 12/30/19 02:15 Problem List - Problems (1) COVID-19 Code(s): U07.1 - COVID POSITIVE (2) Diabetes mellitus Code(s): E11.9 - TYPE 2 DIABETES MELLITUS WITHOUT COMPLICATIONS (3) Elevated troponin Code(s): R79.89 - OTHER SPECIFIED ABNORMAL FINDINGS OF BLOOD CHEMISTRY (4) Fall Code(s): W19.XXXA - UNSPECIFIED FALL, INITIAL ENCOUNTER Qualifiers: Encounter type: initial encounter Qualified Code(s): W19.XXXA - Unspecified fall, initial encounter (5) HTN (hypertension) Code(s): I10 - ESSENTIAL (PRIMARY) HYPERTENSION (6) Osteoarthritis Code(s): M19.90 - UNSPECIFIED OSTEOARTHRITIS, UNSPECIFIED SITE (7) Presence of stent in coronary artery in patient with coronary artery disease Code(s): I25.10 - ATHSCL HEART DISEASE OF [place] CORONARY ARTERY W/O ANG PCTRS; Z95.5 - PRESENCE OF CORONARY ANGIOPLASTY IMPLANT AND GRAFT Assessment/Plan COVID 19 POSITIVE ON ISOLATION PULM/ID CONSULT APPRECIATED STEROID IV FOR PULM SUPPORT DEMISLIVIR CONSENT OBTAINED FROM [facility] EVAL APPRECIATED AGREE WITH CONSERVATIVE MANAGEMENT FOR NOW FOR ELEVATED TROPONINS IV FLUIDS CHECK LABS DVT PROPHYLAXIS D/W DAUGHTER ON IV ABX/NEBS/02 SUPPORT
[2020-01-07] MEDS: REMDESIVIR 100 MG in SODIUM CHLORIDE 230 ML IVPB SCH (16:55)
[2020-01-07] MEDS: ENOXAPARIN NA (PORCINE) 40 MG/0.4 ML DISP.SYRIN SQ SCH (16:55)
[2020-01-07] MEDS: ATORVASTATIN CA 40 MG TABLET (FP) PO SCH (22:01)
[2020-01-08] MEDS: INSULIN SLIDING SCALE (NOVOLOG) 1 VIAL SQ SCH ×4 (07:04→21:28)
--- NOTE | 2020-01-08 07:36 | PN ---
Progress Note, Physician History of Present Illness: PULMONARY CONFUSED,-RESP DISTRESS,ON NAAL O2 4L,SAT 95% - Current Medication List Current Medications: Active Medications Acetaminophen (Tylenol -) 650 mg PO Q6H PRN PRN Reason: FEVER Last Admin: 01/02/20 00:46 Dose: 650 mg Documented by: Aspirin (Asa -) 81 mg PO DAILY [facility] Last Admin: 01/07/20 11:32 Dose: 81 mg Documented by: Atorvastatin Calcium (Lipitor -) 40 mg PO HS [facility] Last Admin: 01/07/20 22:01 Dose: 40 mg Documented by: Budesonide/Formoterol Fumarate (Symbicort 160/4.5mcg -) 2 puff IH BID [facility] Last Admin: 01/07/20 22:03 Dose: 2 puff Documented by: Calcium Carbonate/Cholecalciferol (Os-Bebo 500+D -) 1 tab PO BID [facility] Last Admin: 01/07/20 22:01 Dose: 1 tab Documented by: Clopidogrel Bisulfate (Plavix -) 75 mg PO DAILY [facility] Last Admin: 01/07/20 11:32 Dose: 75 mg Documented by: Enoxaparin Sodium (Lovenox -) 40 mg SQ DAILY [facility] Last Admin: 01/07/20 16:55 Dose: 40 mg Documented by: Ceftriaxone Sodium 2 gm/ (Dextrose) 100 mls @ 100 mls/hr IVPB DAILY [facility]; Protocol Last Admin: 01/07/20 11:32 Dose: 100 mls/hr Documented by: Azithromycin (Zithromax 500mg Ivpb (Pre-Docked)) 500 mg in 250 mls @ 250 mls/hr IVPB DAILY [facility] Last Admin: 01/07/20 11:33 Dose: 250 mls/hr Documented by: Insulin Aspart (Novolog Vial Sliding Scale -) 1 vial SQ ACHS [facility]; Protocol Last Admin: 01/08/20 07:04 Dose: 2 units Documented by: Lisinopril (Prinivil) 5 mg PO DAILY [facility] Last Admin: 01/07/20 11:32 Dose: 5 mg Documented by: Metoprolol Succinate (Toprol Xl -) 25 mg PO DAILY [facility] Last Admin: 01/07/20 11:33 Dose: 25 mg Documented by: Prednisone (Deltasone -) 40 mg PO DAILY [facility] Last Admin: 01/07/20 11:32 Dose: 40 mg Documented by: Ranolazine (Ranexa -) 500 mg PO BID [facility] Last Admin: 01/07/20 22:01 Dose: 500 mg Documented by: - Objective Vital Signs: Vital Signs Temperature 97.5 F L 01/08/20 05:00 Pulse Rate 82 01/08/20 05:00 Respiratory Rate 01/08/20 05:00 Blood Pressure 129/86 01/08/20 05:00 O2 Sat by Pulse Oximetry (%) 91 L 01/08/20 05:00 Constitutional: Yes: Well Nourished, Calm, Other (CONFUSED) Eyes: Yes: WNL HENT: Yes: WNL Neck: Yes: WNL Cardiovascular: Yes: Regular Rate and Rhythm, S1, S2 Respiratory: Yes: Diminished Gastrointestinal: Yes: Normal Bowel Sounds, Soft Extremities: Yes: WNL Edema: No Labs: CBC, BMP 01/07/20 06:52 Laboratory Tests 01/08/20 01/08/20 07:08 07:08 D-Dimer 869 H Ferritin 401.7 H LD Total 275 H C-Reactive Protein 0.8 H Problem List - Problems (1) COVID-19 Code(s): U07.1 - COVID POSITIVE (2) Diabetes mellitus Code(s): E11.9 - TYPE 2 DIABETES MELLITUS WITHOUT COMPLICATIONS (3) Elevated troponin Code(s): R79.89 - OTHER SPECIFIED ABNORMAL FINDINGS OF BLOOD CHEMISTRY (4) Osteoarthritis Code(s): M19.90 - UNSPECIFIED OSTEOARTHRITIS, UNSPECIFIED SITE (5) Presence of stent in coronary artery in patient with coronary artery disease Code(s): I25.10 - ATHSCL HEART DISEASE OF [place] CORONARY ARTERY W/O ANG PCTRS; Z95.5 - PRESENCE OF CORONARY ANGIOPLASTY IMPLANT AND GRAFT (6) Rhabdomyolysis Code(s): M62.82 - RHABDOMYOLYSIS (7) Syncope Code(s): R55 - SYNCOPE AND COLLAPSE Qualifiers: Syncope type: unspecified Qualified Code(s): R55 - Syncope and collapse Assessment/Plan IMP COVID 19 SYNCOPE + TROPONIN NSTEMI MILD-MODERATE GLOBAL HYPOKINESIS LEFT VENTRICAL HTN ASHD S/P STENT DM ? COVID ENCEPHALOPATHY PLAN SUPPLEMENTAL O2 AC INHALED BRONCHODILATORS TREND INFLAMMATORY MARKERS S/P REMDESIVIR STEROIDS DR ROSS Problem List - Problems (1) COVID-19 Code(s): U07.1 - COVID POSITIVE (2) Diabetes mellitus Code(s): E11.9 - TYPE 2 DIABETES MELLITUS WITHOUT COMPLICATIONS (3) Elevated troponin Code(s): R79.89 - OTHER SPECIFIED ABNORMAL FINDINGS OF BLOOD CHEMISTRY (4) Osteoarthritis Code(s): M19.90 - UNSPECIFIED OSTEOARTHRITIS, UNSPECIFIED SITE (5) Presence of stent in coronary artery in patient with coronary artery disease Code(s): I25.10 - ATHSCL HEART DISEASE OF [place] CORONARY ARTERY W/O ANG PCTRS; Z95.5 - PRESENCE OF CORONARY ANGIOPLASTY IMPLANT AND GRAFT (6) Rhabdomyolysis Code(s): M62.82 - RHABDOMYOLYSIS (7) Syncope Code(s): R55 - SYNCOPE AND COLLAPSE Qualifiers: Syncope type: unspecified Qualified Code(s): R55 - Syncope and collapse
[2020-01-08 07:53] LABS: BASO % 0.1 % (0-2.0); HEMATOCRIT 44.9 % (32.4-45.2); HEMOGLOBIN 15.4 GM/dL (10.7-15.3); LYMPH % 6.3 % (8-40); MCH 29.4 pg (25.7-33.7); MCHC 34.4 g/dl (32.0-36.0); MEAN CELL VOLUME 85.3 fl (80-96); MEAN PLT VOLUME 8.9 fl (7.5-11.1); MONO % 10.2 % (3.8-10.2); NEUT % 83.4 % (42.8-82.8); PLATELET COUNT 312 K/MM3 (134-434); RBC 5.26 M/mm3 (3.60-5.2); RDW 15.6 % (11.6-15.6); WHITE BLOOD COUNT 15.7 K/mm3 (4.0-10.0)
[2020-01-08] MEDS ORDERED: DEXTROSE 5%-WATER 100 ML IVPB ONE (08:19)
[2020-01-08 08:24] LABS: ALBUMIN 2.8 g/dl (3.4-5.0); BILIRUBIN,TOTAL 0.5 mg/dL (0.2-1); BLOOD UREA NITROGEN 37.9 mg/dL (7-18); CALCIUM 8.3 mg/dL (8.5-10.1); CREATININE 1.1 mg/dL (0.55-1.3); MAGNESIUM 2.3 mg/dL (1.8-2.4); PHOSPHOROUS 2.3 mg/dL (2.5-4.9); POTASSIUM 3.7 mmol/L (3.5-5.1); TOT PROT 6.1 g/dl (6.4-8.2)
[2020-01-08] MEDS: CLOPIDOGREL BISULFATE 75 MG TABLET (FP) PO SCH (09:06)
[2020-01-08] MEDS: ASPIRIN 81 MG CHEWABLE TABLETS PO SCH (09:06)
[2020-01-08] MEDS: predniSONE 20 MG TABLET (UD) PO SCH (09:06)
[2020-01-08] MEDS: RANOLAZINE E.R. 500 MG TABLET (FP) PO SCH ×3 (09:06→21:52)
[2020-01-08] MEDS: metoPROLOL SUCCINATE 25 MG TAB.SR.24H (FP) PO SCH (09:06)
[2020-01-08] MEDS: CALCIUM 500MG/VIT-D 200 UNITS COMBO TABLET (FP) PO SCH ×3 (09:06→21:52)
[2020-01-08] MEDS: LISINOPRIL 5 MG TABLET PO SCH (09:06)
[2020-01-08] MEDS: BUDESONIDE/FORMETEROL FUMARATE 160/4.5 mcg INHALER IH SCH ×2 (09:07→21:34)
[2020-01-08] MEDS: CEFTRIAXONE 2 GM in DEXTROSE 5%-WATER 100 ML IVPB SCH (09:07)
[2020-01-08] MEDS: ENOXAPARIN NA (PORCINE) 40 MG/0.4 ML DISP.SYRIN SQ SCH (09:07)
[2020-01-08] MEDS: AZITHROMYCIN IVPB 500 MG/250 ML BAG IVPB SCH (10:31)
--- NOTE | 2020-01-08 15:42 | PN ---
Progress Note, Physician Chief Complaint: CONFUSED, AWAKE ON 4L 02 MS EVENTS AND NOTES REVIEWED - Current Medication List Current Medications: Active Medications Acetaminophen (Tylenol -) 650 mg PO Q6H PRN PRN Reason: FEVER Last Admin: 01/02/20 00:46 Dose: 650 mg Documented by: Aspirin (Asa -) 81 mg PO DAILY [facility] Last Admin: 01/08/20 09:06 Dose: 81 mg Documented by: Atorvastatin Calcium (Lipitor -) 40 mg PO HS [facility] Last Admin: 01/07/20 22:01 Dose: 40 mg Documented by: Budesonide/Formoterol Fumarate (Symbicort 160/4.5mcg -) 2 puff IH BID [facility] Last Admin: 01/08/20 09:07 Dose: 2 puff Documented by: Calcium Carbonate/Cholecalciferol (Os-Bebo 500+D -) 1 tab PO BID [facility] Last Admin: 01/08/20 09:06 Dose: 1 tab Documented by: Clopidogrel Bisulfate (Plavix -) 75 mg PO DAILY [facility] Last Admin: 01/08/20 09:06 Dose: 75 mg Documented by: Enoxaparin Sodium (Lovenox -) 40 mg SQ DAILY [facility] Last Admin: 01/08/20 09:07 Dose: 40 mg Documented by: Azithromycin (Zithromax 500mg Ivpb (Pre-Docked)) 500 mg in 250 mls @ 250 mls/hr IVPB DAILY [facility] Last Admin: 01/08/20 10:31 Dose: 250 mls/hr Documented by: Insulin Aspart (Novolog Vial Sliding Scale -) 1 vial SQ ACHS [facility]; Protocol Last Admin: 01/08/20 11:37 Dose: 2 units Documented by: Lisinopril (Prinivil) 5 mg PO DAILY [facility] Last Admin: 01/08/20 09:06 Dose: 5 mg Documented by: Metoprolol Succinate (Toprol Xl -) 25 mg PO DAILY [facility] Last Admin: 01/08/20 09:06 Dose: 25 mg Documented by: Prednisone (Deltasone -) 40 mg PO DAILY [facility] Last Admin: 01/08/20 09:06 Dose: 40 mg Documented by: Ranolazine (Ranexa -) 500 mg PO BID [facility] Last Admin: 01/08/20 09:06 Dose: 500 mg Documented by: - Objective Vital Signs: Vital Signs Temperature 97.8 F 01/08/20 14:00 Pulse Rate 79 01/08/20 14:00 Respiratory Rate 18 01/08/20 09:29 Blood Pressure 136/60 01/08/20 14:00 O2 Sat by Pulse Oximetry (%) 95 01/08/20 10:00 Constitutional: Yes: Mild Distress Cardiovascular: Yes: Pulse Irregular Respiratory: Yes: Diminished, On Nasal O2 Genitourinary: Yes: Incontinence Extremities: Yes: Other Neurological: Yes: Pre-Existing Deficit, Unsteady Gait Labs: CBC, BMP 01/08/20 07:08 01/08/20 07:08 INR, PTT INR 1.03 (0.83-1.09) 12/30/19 02:15 Problem List - Problems (1) COVID-19 Code(s): U07.1 - COVID POSITIVE (2) Diabetes mellitus Code(s): E11.9 - TYPE 2 DIABETES MELLITUS WITHOUT COMPLICATIONS (3) Elevated troponin Code(s): R79.89 - OTHER SPECIFIED ABNORMAL FINDINGS OF BLOOD CHEMISTRY (4) Fall Code(s): W19.XXXA - UNSPECIFIED FALL, INITIAL ENCOUNTER Qualifiers: Encounter type: initial encounter Qualified Code(s): W19.XXXA - Unspecified fall, initial encounter (5) HTN (hypertension) Code(s): I10 - ESSENTIAL (PRIMARY) HYPERTENSION (6) Osteoarthritis Code(s): M19.90 - UNSPECIFIED OSTEOARTHRITIS, UNSPECIFIED SITE (7) Presence of stent in coronary artery in patient with coronary artery disease Code(s): I25.10 - ATHSCL HEART DISEASE OF [place] CORONARY ARTERY W/O ANG PCTRS; Z95.5 - PRESENCE OF CORONARY ANGIOPLASTY IMPLANT AND GRAFT Assessment/Plan COVID 19 POSITIVE ON ISOLATION PULM/ID CONSULT APPRECIATED STEROID IV FOR PULM SUPPORT DEMISLIVIR CONSENT OBTAINED FROM [facility] EVAL APPRECIATED AGREE WITH CONSERVATIVE MANAGEMENT FOR NOW FOR ELEVATED TROPONINS IV FLUIDS CHECK LABS DVT PROPHYLAXIS D/W DAUGHTER ON IV ABX/NEBS/02 SUPPORT SNF PLACEMENT
[2020-01-08] MEDS: ATORVASTATIN CA 40 MG TABLET (FP) PO SCH ×2 (21:28→21:52)
[2020-01-08] MEDS: NAPH,MB-DB/K PH,MBDB POWDER PACKET PO SCH (21:28)
--- NOTE | 2020-01-09 07:39 | PN ---
Progress Note, Physician History of Present Illness: PULMONARY AWAKE,CONFUSED ,-SOB ON NASAL O2 - Current Medication List Current Medications: Active Medications Acetaminophen (Tylenol -) 650 mg PO Q6H PRN PRN Reason: FEVER Last Admin: 01/02/20 00:46 Dose: 650 mg Documented by: Aspirin (Asa -) 81 mg PO DAILY [facility] Last Admin: 01/08/20 09:06 Dose: 81 mg Documented by: Atorvastatin Calcium (Lipitor -) 40 mg PO HS [facility] Last Admin: 01/08/20 21:52 Dose: Not Given Documented by: Budesonide/Formoterol Fumarate (Symbicort 160/4.5mcg -) 2 puff IH BID [facility] Last Admin: 01/08/20 21:34 Dose: 2 puff Documented by: Calcium Carbonate/Cholecalciferol (Os-Bebo 500+D -) 1 tab PO BID [facility] Last Admin: 01/08/20 21:52 Dose: Not Given Documented by: Clopidogrel Bisulfate (Plavix -) 75 mg PO DAILY [facility] Last Admin: 01/08/20 09:06 Dose: 75 mg Documented by: Enoxaparin Sodium (Lovenox -) 40 mg SQ DAILY [facility] Last Admin: 01/08/20 09:07 Dose: 40 mg Documented by: Insulin Aspart (Novolog Vial Sliding Scale -) 1 vial SQ [facility]; Protocol Last Admin: 01/08/20 21:28 Dose: 6 units Documented by: Lisinopril (Prinivil) 5 mg PO DAILY [facility] Last Admin: 01/08/20 09:06 Dose: 5 mg Documented by: Metoprolol Succinate (Toprol Xl -) 25 mg PO DAILY [facility] Last Admin: 01/08/20 09:06 Dose: 25 mg Documented by: Potassium Phos/Sodium Phos (Phos-Nak Packet -) 1 packet PO BID [facility] Last Admin: 01/08/20 21:28 Dose: 1 packet Documented by: Prednisone (Deltasone -) 40 mg PO DAILY [facility] Last Admin: 01/08/20 09:06 Dose: 40 mg Documented by: Ranolazine (Ranexa -) 500 mg PO BID [facility] Last Admin: 01/08/20 21:52 Dose: Not Given Documented by: - Objective Vital Signs: Vital Signs Temperature 98.1 F 01/09/20 01:44 Pulse Rate 78 01/09/20 01:44 Respiratory Rate 18 09/23/20 01:44 Blood Pressure 139/84 01/09/20 01:44 O2 Sat by Pulse Oximetry (%) 96 01/08/20 21:00 Constitutional: Yes: Well Nourished, Calm Eyes: Yes: WNL HENT: Yes: WNL Neck: Yes: WNL Cardiovascular: Yes: Regular Rate and Rhythm, S1, S2 Respiratory: Yes: Diminished Gastrointestinal: Yes: Normal Bowel Sounds, Soft Extremities: Yes: WNL Edema: No Labs: CBC, BMP Problem List - Problems (1) COVID-19 Code(s): U07.1 - COVID POSITIVE (2) Diabetes mellitus Code(s): E11.9 - TYPE 2 DIABETES MELLITUS WITHOUT COMPLICATIONS (3) Elevated troponin Code(s): R79.89 - OTHER SPECIFIED ABNORMAL FINDINGS OF BLOOD CHEMISTRY (4) Osteoarthritis Code(s): M19.90 - UNSPECIFIED OSTEOARTHRITIS, UNSPECIFIED SITE (5) Presence of stent in coronary artery in patient with coronary artery disease Code(s): I25.10 - ATHSCL HEART DISEASE OF [place] CORONARY ARTERY W/O ANG PCTRS; Z95.5 - PRESENCE OF CORONARY ANGIOPLASTY IMPLANT AND GRAFT (6) Rhabdomyolysis Code(s): M62.82 - RHABDOMYOLYSIS (7) Syncope Code(s): R55 - SYNCOPE AND COLLAPSE Qualifiers: Syncope type: unspecified Qualified Code(s): R55 - Syncope and collapse Assessment/Plan IMP COVID 19 SYNCOPE + TROPONIN NSTEMI MILD-MODERATE GLOBAL HYPOKINESIS LEFT VENTRICAL HTN ASHD S/P STENT DM ? COVID ENCEPHALOPATHY PLAN SUPPLEMENTAL O2 AC INHALED BRONCHODILATORS TREND INFLAMMATORY MARKERS S/P REMDESIVIR PREDNISONE DR ROSS Problem List - Problems (1) COVID-19 Code(s): U07.1 - COVID POSITIVE (2) Diabetes mellitus Code(s): E11.9 - TYPE 2 DIABETES MELLITUS WITHOUT COMPLICATIONS (3) Elevated troponin Code(s): R79.89 - OTHER SPECIFIED ABNORMAL FINDINGS OF BLOOD CHEMISTRY (4) Osteoarthritis Code(s): M19.90 - UNSPECIFIED OSTEOARTHRITIS, UNSPECIFIED SITE (5) Presence of stent in coronary artery in patient with coronary artery disease Code(s): I25.10 - ATHSCL HEART DISEASE OF [place] CORONARY ARTERY W/O ANG PCTRS; Z95.5 - PRESENCE OF CORONARY ANGIOPLASTY IMPLANT AND GRAFT (6) Rhabdomyolysis Code(s): M62.82 - RHABDOMYOLYSIS (7) Syncope Code(s): R55 - SYNCOPE AND COLLAPSE Qualifiers: Syncope type: unspecified Qualified Code(s): R55 - Syncope and collapse
[2020-01-09] MEDS: INSULIN SLIDING SCALE (NOVOLOG) 1 VIAL SQ SCH ×4 (08:32→21:36)
--- NOTE | 2020-01-09 08:40 | DS ---
Physical Examination Vital Signs: Vital Signs Temperature 98.1 F 01/09/20 01:44 Pulse Rate 78 01/09/20 01:44 Respiratory Rate 18 01/09/20 06:00 Blood Pressure 135/75 01/09/20 06:00 O2 Sat by Pulse Oximetry (%) 95 01/09/20 06:00 Findings/Remarks: CONFUSED/ON 02 NC Constitutional: Yes: Mild Distress Eyes: Yes: WNL HENT: Yes: WNL Neck: Yes: WNL Cardiovascular: Yes: Pulse Irregular Respiratory: Yes: Diminished, On Nasal O2 Gastrointestinal: Yes: Soft, Abdomen, Obese Renal/: Yes: Incontinence Musculoskeletal: Yes: Muscle Weakness Edema: Yes Neurological: Yes: Confusion Labs: CBC, BMP 01/08/20 07:08 01/08/20 07:08 Discharge Summary Problems reviewed: Yes Reason For Visit: SYNCOPE AND COLLAPSE, WEAKNESS, FALL Current Active Problems COVID-19 (Acute) Diabetes mellitus (Acute) Elevated troponin (Acute) Encounter for screening laboratory testing for COVID-19 virus (Acute) Fall (Acute) HTN (hypertension) (Acute) Osteoarthritis (Acute) Presence of stent in coronary artery in patient with coronary artery disease (Acute) Rhabdomyolysis (Acute) Right knee pain (Acute) Syncope (Acute) Weakness (Acute) Procedures: Principal: CT SCANS/XRAYS/LABS Hospital Course: ADMITTED COVID19 POSITIVE WITH PNA, TREATED WITH IV ABX, NEBS, STEROIDS, AND CARDIAC MONITORING WILL NEED SNF FOR PULMONARY REHAB Goals: PULMONARY REHAB AND P.T. Condition: Fair - Instructions Diet, Activity, Other Instructions: [facility] FOR REHAB BOTH PULMONARY AND PHYSICAL THERAPY PREDNISONE TAPER MONITOR BGM AC Referrals: Donell Plummer MD [Primary Care Provider] - Disposition: [facility] FACILITY - Home Medications Comprehensive Discharge Medication List: Ambulatory Orders Atorvastatin Ca [Lipitor] 40 mg PO HS #0 tablet 04/03/13 Calcium Carbonate/Vitamin D3 [Oyst-Bebo-D 500 mg Tablet] 1 each PO BID #0 tablet 04/03/13 Clopidogrel Bisulfate [Plavix -] 75 mg PO DAILY #0 tablet 04/03/13 Diclofenac Sodium [Voltaren] 100 gm TP BID #0 gel..gram. 04/03/13 Glimepiride 4 mg PO DAILY #0 tablet 04/03/13 Lisinopril [Prinivil] 10 mg PO DAILY #0 tablet 04/03/13 Meloxicam [Mobic -] 15 mg PO DAILY #0 tablet 04/03/13 Olopatadine HCl [Pataday] 1 drop OU DAILY #0 drops 04/03/13 Omeprazole [Prilosec (RX)] 20 mg PO DAILY #0 capsule. 04/03/13 Ranolazine [Ranexa] 500 mg PO BID #0 tab.er.12h 04/03/13 Saxagliptin HCl/Metformin HCl [Kombiglyze Xr 5-1,000 mg Tab] 1 each PO DAILY #0 tbmp.24hr 04/03/13
[2020-01-09] MEDS: predniSONE 20 MG TABLET (UD) PO SCH (10:53)
[2020-01-09] MEDS: ASPIRIN 81 MG CHEWABLE TABLETS PO SCH (10:53)
[2020-01-09] MEDS: CALCIUM 500MG/VIT-D 200 UNITS COMBO TABLET (FP) PO SCH ×2 (10:53→21:26)
[2020-01-09] MEDS: NAPH,MB-DB/K PH,MBDB POWDER PACKET PO SCH ×2 (10:53→21:26)
[2020-01-09] MEDS: CLOPIDOGREL BISULFATE 75 MG TABLET (FP) PO SCH (10:53)
[2020-01-09] MEDS: RANOLAZINE E.R. 500 MG TABLET (FP) PO SCH ×2 (10:53→21:26)
[2020-01-09] MEDS: LISINOPRIL 5 MG TABLET PO SCH (10:53)
[2020-01-09] MEDS: metoPROLOL SUCCINATE 25 MG TAB.SR.24H (FP) PO SCH (10:53)
[2020-01-09] MEDS: ENOXAPARIN NA (PORCINE) 40 MG/0.4 ML DISP.SYRIN SQ SCH (10:54)
[2020-01-09] MEDS: BUDESONIDE/FORMETEROL FUMARATE 160/4.5 mcg INHALER IH SCH ×2 (10:54→21:26)
[2020-01-09] MEDS ORDERED: INSULIN (NOVOLOG) ASPART 100 UNITS/ML 10ML VIAL ONE (17:27)
[2020-01-09] MEDS: ATORVASTATIN CA 40 MG TABLET (FP) PO SCH (21:26)
[2020-01-10] MEDS: INSULIN SLIDING SCALE (NOVOLOG) 1 VIAL SQ SCH ×4 (06:04→21:14)
[2020-01-10 11:02] LABS: HEMOGLOBIN 14.5 GM/dL (10.7-15.3); MCH 28.6 pg (25.7-33.7); MCHC 32.9 g/dl (32.0-36.0); MEAN CELL VOLUME 87.1 fl (80-96); MEAN PLT VOLUME 8.9 fl (7.5-11.1); PLATELET COUNT 289 K/MM3 (134-434); RBC 5.05 M/mm3 (3.60-5.2); RDW 15.2 % (11.6-15.6); WHITE BLOOD COUNT 11.2 K/mm3 (4.0-10.0)
--- NOTE | 2020-01-10 11:24 | PN ---
Progress Note (short form) - Note Progress Note: PULMONARY Flat affect today, saturating well on room air. No fevers recorded. Vital Signs Period Temp Pulse Resp BP Sys/Carroll Pulse Ox Last 24 Hr 97.8 F-98.8 F 74-84 18-20 126-142/56-84 90-95 Gen: NAD at rest Heart: RRR Lung: decreased breath sounds at the bases Abd: soft, nontender Ext: no edema CBC, BMP 01/10/20 10:32 Active Medications Acetaminophen (Tylenol -) 650 mg PO Q6H PRN PRN Reason: FEVER Last Admin: 01/02/20 00:46 Dose: 650 mg Documented by: Aspirin (Asa -) 81 mg PO DAILY [facility] Last Admin: 01/09/20 10:53 Dose: 81 mg Documented by: Atorvastatin Calcium (Lipitor -) 40 mg PO HS [facility] Last Admin: 01/09/20 21:26 Dose: 40 mg Documented by: Budesonide/Formoterol Fumarate (Symbicort 160/4.5mcg -) 2 puff IH BID [facility] Last Admin: 01/09/20 21:26 Dose: 2 puff Documented by: Calcium Carbonate/Cholecalciferol (Os-Bebo 500+D -) 1 tab PO BID [facility] Last Admin: 01/09/20 21:26 Dose: 1 tab Documented by: Clopidogrel Bisulfate (Plavix -) 75 mg PO DAILY [facility] Last Admin: 01/09/20 10:53 Dose: 75 mg Documented by: Enoxaparin Sodium (Lovenox -) 40 mg SQ DAILY [facility] Last Admin: 01/09/20 10:54 Dose: 40 mg Documented by: Insulin Aspart (Novolog Vial Sliding Scale -) 1 vial SQ [facility]; Protocol Last Admin: 01/10/20 06:04 Dose: 2 units Documented by: Lisinopril (Prinivil) 5 mg PO DAILY [facility] Last Admin: 01/09/20 10:53 Dose: 5 mg Documented by: Metoprolol Succinate (Toprol Xl -) 25 mg PO DAILY [facility] Last Admin: 01/09/20 10:53 Dose: 25 mg Documented by: Potassium Phos/Sodium Phos (Phos-Nak Packet -) 1 packet PO BID [facility] Last Admin: 01/09/20 21:26 Dose: 1 packet Documented by: Prednisone (Deltasone -) 40 mg PO DAILY [facility] Last Admin: 01/09/20 10:53 Dose: 40 mg Documented by: Ranolazine (Ranexa -) 500 mg PO BID [facility] Last Admin: 01/09/20 21:26 Dose: 500 mg Documented by: A/P COVID19 Pneumonitis Hypoxia CAD Acute NSTEMI LV Systolic Dysfunction DM HTN - last dose of remdesivir today - O2 to keep SpO2 >90% - continue steroids - on empiric antibiotics - trend inflammatory markers - DVT prophylaxis
[2020-01-10] MEDS: ENOXAPARIN NA (PORCINE) 40 MG/0.4 ML DISP.SYRIN SQ SCH (11:39)
[2020-01-10] MEDS: ASPIRIN 81 MG CHEWABLE TABLETS PO SCH (11:39)
[2020-01-10] MEDS: CALCIUM 500MG/VIT-D 200 UNITS COMBO TABLET (FP) PO SCH ×2 (11:39→21:11)
[2020-01-10] MEDS: LISINOPRIL 5 MG TABLET PO SCH (11:39)
[2020-01-10] MEDS: RANOLAZINE E.R. 500 MG TABLET (FP) PO SCH ×2 (11:39→21:11)
[2020-01-10] MEDS: NAPH,MB-DB/K PH,MBDB POWDER PACKET PO SCH ×2 (11:39→21:12)
[2020-01-10] MEDS: CLOPIDOGREL BISULFATE 75 MG TABLET (FP) PO SCH (11:39)
[2020-01-10] MEDS: predniSONE 20 MG TABLET (UD) PO SCH (11:39)
[2020-01-10] MEDS: BUDESONIDE/FORMETEROL FUMARATE 160/4.5 mcg INHALER IH SCH ×2 (11:39→21:12)
[2020-01-10] MEDS: metoPROLOL SUCCINATE 25 MG TAB.SR.24H (FP) PO SCH (11:40)
[2020-01-10 11:57] LABS: ALBUMIN 2.6 g/dl (3.4-5.0); BILIRUBIN,TOTAL 0.9 mg/dL (0.2-1); BLOOD UREA NITROGEN 25.1 mg/dL (7-18); CALCIUM 8.4 mg/dL (8.5-10.1); CREATININE 0.7 mg/dL (0.55-1.3); MAGNESIUM 2.2 mg/dL (1.8-2.4); PHOSPHOROUS 2.4 mg/dL (2.5-4.9); POTASSIUM 3.7 mmol/L (3.5-5.1); TOT PROT 5.7 g/dl (6.4-8.2)
--- NOTE | 2020-01-10 16:11 | PN ---
Progress Note, Physician Chief Complaint: STILL COVID + ON 2ND SWAB FEELS BETTER - Current Medication List Current Medications: Active Medications Acetaminophen (Tylenol -) 650 mg PO Q6H PRN PRN Reason: FEVER Last Admin: 01/02/20 00:46 Dose: 650 mg Documented by: Aspirin (Asa -) 81 mg PO DAILY [facility] Last Admin: 01/10/20 11:39 Dose: 81 mg Documented by: Atorvastatin Calcium (Lipitor -) 40 mg PO HS [facility] Last Admin: 01/09/20 21:26 Dose: 40 mg Documented by: Budesonide/Formoterol Fumarate (Symbicort 160/4.5mcg -) 2 puff IH BID [facility] Last Admin: 01/10/20 11:39 Dose: Not Given Documented by: Calcium Carbonate/Cholecalciferol (Os-Bebo 500+D -) 1 tab PO BID [facility] Last Admin: 01/10/20 11:39 Dose: 1 tab Documented by: Clopidogrel Bisulfate (Plavix -) 75 mg PO DAILY [facility] Last Admin: 01/10/20 11:39 Dose: 75 mg Documented by: Enoxaparin Sodium (Lovenox -) 40 mg SQ DAILY [facility] Last Admin: 01/10/20 11:39 Dose: 40 mg Documented by: Insulin Aspart (Novolog Vial Sliding Scale -) 1 vial SQ [facility]; Protocol Last Admin: 01/10/20 12:37 Dose: 2 units Documented by: Lisinopril (Prinivil) 5 mg PO DAILY [facility] Last Admin: 01/10/20 11:39 Dose: 5 mg Documented by: Metoprolol Succinate (Toprol Xl -) 25 mg PO DAILY [facility] Last Admin: 01/10/20 11:40 Dose: 25 mg Documented by: Potassium Phos/Sodium Phos (Phos-Nak Packet -) 1 packet PO BID [facility] Last Admin: 01/10/20 11:39 Dose: 1 packet Documented by: Prednisone (Deltasone -) 40 mg PO DAILY [facility] Last Admin: 01/10/20 11:39 Dose: 40 mg Documented by: Ranolazine (Ranexa -) 500 mg PO BID [facility] Last Admin: 01/10/20 11:39 Dose: 500 mg Documented by: - Objective Vital Signs: Vital Signs Temperature 98.4 F 01/10/20 15:16 Pulse Rate 79 01/10/20 15:16 Respiratory Rate 20 20 15:16 Blood Pressure 128/74 01/10/20 15:16 O2 Sat by Pulse Oximetry (%) 91 L 01/10/20 09:00 Constitutional: Yes: Mild Distress Cardiovascular: Yes: Pulse Irregular Respiratory: Yes: Diminished Gastrointestinal: Yes: Soft, Abdomen, Obese Genitourinary: Yes: Incontinence Musculoskeletal: Yes: Muscle Weakness Neurological: Yes: Confusion Labs: CBC, BMP 01/10/20 10:32 01/10/20 10:32 INR, PTT INR 1.03 (0.83-1.09) 12/30/19 02:15 Problem List - Problems (1) COVID-19 Code(s): U07.1 - COVID POSITIVE (2) Diabetes mellitus Code(s): E11.9 - TYPE 2 DIABETES MELLITUS WITHOUT COMPLICATIONS (3) Elevated troponin Code(s): R79.89 - OTHER SPECIFIED ABNORMAL FINDINGS OF BLOOD CHEMISTRY (4) Fall Code(s): W19.XXXA - UNSPECIFIED FALL, INITIAL ENCOUNTER Qualifiers: Encounter type: initial encounter Qualified Code(s): W19.XXXA - Unspecified fall, initial encounter (5) HTN (hypertension) Code(s): I10 - ESSENTIAL (PRIMARY) HYPERTENSION (6) Osteoarthritis Code(s): M19.90 - UNSPECIFIED OSTEOARTHRITIS, UNSPECIFIED SITE (7) Presence of stent in coronary artery in patient with coronary artery disease Code(s): I25.10 - ATHSCL HEART DISEASE OF [place] CORONARY ARTERY W/O ANG PCTRS; Z95.5 - PRESENCE OF CORONARY ANGIOPLASTY IMPLANT AND GRAFT Assessment/Plan COVID POSITIVE 2ND SWAB PREDNISONE TAPER NEBS ABX 02 SUPPORT OOB TO CHAIR LOVENOX BID DVT PROPHYLAXIS SNF PLACEMENT
[2020-01-10] MEDS: ATORVASTATIN CA 40 MG TABLET (FP) PO SCH (21:11)
[2020-01-11] MEDS: INSULIN SLIDING SCALE (NOVOLOG) 1 VIAL SQ SCH ×4 (06:03→22:03)
--- NOTE | 2020-01-11 07:21 | PN ---
Progress Note, Physician Chief Complaint: RESPONDED WELL TO REMDISOVIR ON ROOM AIR AND COMFORTABLE - Current Medication List Current Medications: Active Medications Acetaminophen (Tylenol -) 650 mg PO Q6H PRN PRN Reason: FEVER Last Admin: 01/02/20 00:46 Dose: 650 mg Documented by: Aspirin (Asa -) 81 mg PO DAILY [facility] Last Admin: 01/10/20 11:39 Dose: 81 mg Documented by: Atorvastatin Calcium (Lipitor -) 40 mg PO HS [facility] Last Admin: 01/10/20 21:11 Dose: 40 mg Documented by: Budesonide/Formoterol Fumarate (Symbicort 160/4.5mcg -) 2 puff IH BID [facility] Last Admin: 01/10/20 21:12 Dose: 2 puff Documented by: Calcium Carbonate/Cholecalciferol (Os-Bebo 500+D -) 1 tab PO BID [facility] Last Admin: 01/10/20 21:11 Dose: 1 tab Documented by: Clopidogrel Bisulfate (Plavix -) 75 mg PO DAILY [facility] Last Admin: 01/10/20 11:39 Dose: 75 mg Documented by: Enoxaparin Sodium (Lovenox -) 40 mg SQ DAILY [facility] Last Admin: 01/10/20 11:39 Dose: 40 mg Documented by: Insulin Aspart (Novolog Vial Sliding Scale -) 1 vial SQ [facility]; Protocol Last Admin: 01/11/20 06:03 Dose: 4 units Documented by: Lisinopril (Prinivil) 5 mg PO DAILY [facility] Last Admin: 01/10/20 11:39 Dose: 5 mg Documented by: Metoprolol Succinate (Toprol Xl -) 25 mg PO DAILY [facility] Last Admin: 01/10/20 11:40 Dose: 25 mg Documented by: Potassium Phos/Sodium Phos (Phos-Nak Packet -) 1 packet PO BID [facility] Last Admin: 01/10/20 21:12 Dose: 1 packet Documented by: Prednisone (Deltasone -) 40 mg PO DAILY [facility] Last Admin: 01/10/20 11:39 Dose: 40 mg Documented by: Ranolazine (Ranexa -) 500 mg PO BID [facility] Last Admin: 01/10/20 21:11 Dose: 500 mg Documented by: - Objective Vital Signs: Vital Signs Temperature 98.8 F 01/11/20 05:37 Pulse Rate 80 01/11/20 05:37 Respiratory Rate 18 01/11/20 05:37 Blood Pressure 133/80 01/11/20 05:37 O2 Sat by Pulse Oximetry (%) 95 01/11/20 05:37 Constitutional: Yes: No Distress Cardiovascular: Yes: Pulse Irregular Respiratory: Yes: Regular, Diminished Gastrointestinal: Yes: Soft, Abdomen, Obese Genitourinary: Yes: Incontinence Musculoskeletal: Yes: Muscle Weakness Edema: Yes Neurological: Yes: Confusion, Pre-Existing Deficit ...Motor Strength: LLE, RLE Psychiatric: Yes: Other Labs: CBC, BMP 01/10/20 10:32 01/10/20 10:32 INR, PTT INR 1.03 (0.83-1.09) 12/30/19 02:15 Problem List - Problems (1) COVID-19 Code(s): U07.1 - COVID POSITIVE (2) Diabetes mellitus Code(s): E11.9 - TYPE 2 DIABETES MELLITUS WITHOUT COMPLICATIONS (3) Elevated troponin Code(s): R79.89 - OTHER SPECIFIED ABNORMAL FINDINGS OF BLOOD CHEMISTRY (4) Fall Code(s): W19.XXXA - UNSPECIFIED FALL, INITIAL ENCOUNTER Qualifiers: Encounter type: initial encounter Qualified Code(s): W19.XXXA - Unspecified fall, initial encounter (5) HTN (hypertension) Code(s): I10 - ESSENTIAL (PRIMARY) HYPERTENSION (6) Osteoarthritis Code(s): M19.90 - UNSPECIFIED OSTEOARTHRITIS, UNSPECIFIED SITE (7) Presence of stent in coronary artery in patient with coronary artery disease Code(s): I25.10 - ATHSCL HEART DISEASE OF [place] CORONARY ARTERY W/O ANG PCTRS; Z95.5 - PRESENCE OF CORONARY ANGIOPLASTY IMPLANT AND GRAFT Assessment/Plan COVID POSITIVE 2ND SWAB PREDNISONE TAPER REMDISOVIR LAST DOSE NEBS ABX 02 SUPPORT OOB TO CHAIR LOVENOX BID DVT PROPHYLAXIS SNF PLACEMENT
[2020-01-11] MEDS: CLOPIDOGREL BISULFATE 75 MG TABLET (FP) PO SCH (09:50)
[2020-01-11] MEDS: predniSONE 20 MG TABLET (UD) PO SCH (09:50)
[2020-01-11] MEDS: LISINOPRIL 5 MG TABLET PO SCH (09:51)
[2020-01-11] MEDS: BUDESONIDE/FORMETEROL FUMARATE 160/4.5 mcg INHALER IH SCH ×2 (09:51→21:54)
[2020-01-11] MEDS: ENOXAPARIN NA (PORCINE) 40 MG/0.4 ML DISP.SYRIN SQ SCH (09:51)
[2020-01-11] MEDS: ASPIRIN 81 MG CHEWABLE TABLETS PO SCH (09:51)
[2020-01-11] MEDS: CALCIUM 500MG/VIT-D 200 UNITS COMBO TABLET (FP) PO SCH ×2 (09:51→21:54)
[2020-01-11] MEDS: metoPROLOL SUCCINATE 25 MG TAB.SR.24H (FP) PO SCH (09:51)
[2020-01-11] MEDS: NAPH,MB-DB/K PH,MBDB POWDER PACKET PO SCH ×2 (09:51→21:54)
[2020-01-11] MEDS: RANOLAZINE E.R. 500 MG TABLET (FP) PO SCH ×2 (09:51→21:54)
[2020-01-11] MEDS ORDERED: PT OWN MED DRAWER 7, Y5N ONE (10:40)
--- NOTE | 2020-01-11 12:59 | PN ---
Progress Note (short form) - Note Progress Note: NAD on room air. No fevers recorded. No acute events overnight. Intake & Output 01/08/20 01/09/20 01/10/20 01/11/20 23:59 23:59 23:59 23:59 Intake Total 340 250 320 Output Total 200 Balance 340 50 320 Last Vital Signs Temp Pulse Resp BP Pulse Ox 97.9 F 95 H 19 124/63 94 L 01/11/20 09:00 01/11/20 09:00 01/11/20 09:00 01/11/20 09:00 01/11/20 09:00 Active Medications Acetaminophen (Tylenol -) 650 mg PO Q6H PRN PRN Reason: FEVER Last Admin: 01/02/20 00:46 Dose: 650 mg Documented by: Aspirin (Asa -) 81 mg PO DAILY [facility] Last Admin: 01/11/20 09:51 Dose: 81 mg Documented by: Atorvastatin Calcium (Lipitor -) 40 mg PO HS [facility] Last Admin: 01/10/20 21:11 Dose: 40 mg Documented by: Budesonide/Formoterol Fumarate (Symbicort 160/4.5mcg -) 2 puff IH BID [facility] Last Admin: 01/11/20 09:51 Dose: 2 puff Documented by: Calcium Carbonate/Cholecalciferol (Os-Bebo 500+D -) 1 tab PO BID [facility] Last Admin: 01/11/20 09:51 Dose: 1 tab Documented by: Clopidogrel Bisulfate (Plavix -) 75 mg PO DAILY [facility] Last Admin: 01/11/20 09:50 Dose: 75 mg Documented by: Enoxaparin Sodium (Lovenox -) 40 mg SQ DAILY [facility] Last Admin: 01/11/20 09:51 Dose: 40 mg Documented by: Insulin Aspart (Novolog Vial Sliding Scale -) 1 vial SQ [facility]; Protocol Last Admin: 01/11/20 12:24 Dose: 6 units Documented by: Lisinopril (Prinivil) 5 mg PO DAILY [facility] Last Admin: 01/11/20 09:51 Dose: 5 mg Documented by: Metoprolol Succinate (Toprol Xl -) 25 mg PO DAILY [facility] Last Admin: 01/11/20 09:51 Dose: 25 mg Documented by: Potassium Phos/Sodium Phos (Phos-Nak Packet -) 1 packet PO BID [facility] Last Admin: 01/11/20 09:51 Dose: 1 packet Documented by: Prednisone (Deltasone -) 40 mg PO DAILY [facility] Last Admin: 01/11/20 09:50 Dose: 40 mg Documented by: Ranolazine (Ranexa -) 500 mg PO BID [facility] Last Admin: 01/11/20 09:51 Dose: 500 mg Documented by: Gen: NAD at rest Heart: RRR Lung: decreased breath sounds at the bases Abd: soft, nontender Ext: no edema Laboratory Results - last 24 hr 01/10/20 01/10/20 01/10/20 12:30 17:48 20:48 POC Glucometer 245 286 COVID-19 (SEGUNDO) Detected H 01/11/20 01/11/20 05:32 12:21 POC Glucometer 214 300 COVID-19 ([facility]GUNDO) A/P COVID19 Pneumonitis Hypoxia CAD Acute NSTEMI LV Systolic Dysfunction DM HTN - S/P Remdesivir - DC planning Dr Rodriguez
[2020-01-11] MEDS: ATORVASTATIN CA 40 MG TABLET (FP) PO SCH (21:54)
[2020-01-12] MEDS: INSULIN SLIDING SCALE (NOVOLOG) 1 VIAL SQ SCH ×4 (06:50→22:07)
--- NOTE | 2020-01-12 07:10 | PN ---
Progress Note, Physician History of Present Illness: pulmonary alert,comfortable,-c/o sob,-cough,-cp. o2 sat 93% on ra - Current Medication List Current Medications: Active Medications Acetaminophen (Tylenol -) 650 mg PO Q6H PRN PRN Reason: FEVER Last Admin: 01/02/20 00:46 Dose: 650 mg Documented by: Aspirin (Asa -) 81 mg PO DAILY [facility] Last Admin: 01/11/20 09:51 Dose: 81 mg Documented by: Atorvastatin Calcium (Lipitor -) 40 mg PO HS [facility] Last Admin: 01/11/20 21:54 Dose: 40 mg Documented by: Budesonide/Formoterol Fumarate (Symbicort 160/4.5mcg -) 2 puff IH BID [facility] Last Admin: 01/11/20 21:54 Dose: 2 puff Documented by: Calcium Carbonate/Cholecalciferol (Os-Bebo 500+D -) 1 tab PO BID [facility] Last Admin: 01/11/20 21:54 Dose: 1 tab Documented by: Clopidogrel Bisulfate (Plavix -) 75 mg PO DAILY [facility] Last Admin: 01/11/20 09:50 Dose: 75 mg Documented by: Enoxaparin Sodium (Lovenox -) 40 mg SQ DAILY [facility] Last Admin: 01/11/20 09:51 Dose: 40 mg Documented by: Insulin Aspart (Novolog Vial Sliding Scale -) 1 vial SQ [facility]; Protocol Last Admin: 01/12/20 06:50 Dose: Not Given Documented by: Lisinopril (Prinivil) 5 mg PO DAILY [facility] Last Admin: 01/11/20 09:51 Dose: 5 mg Documented by: Metoprolol Succinate (Toprol Xl -) 25 mg PO DAILY [facility] Last Admin: 01/11/20 09:51 Dose: 25 mg Documented by: Potassium Phos/Sodium Phos (Phos-Nak Packet -) 1 packet PO BID [facility] Last Admin: 01/11/20 21:54 Dose: 1 packet Documented by: Prednisone (Deltasone -) 40 mg PO DAILY [facility] Last Admin: 01/11/20 09:50 Dose: 40 mg Documented by: Ranolazine (Ranexa -) 500 mg PO BID [facility] Last Admin: 01/11/20 21:54 Dose: 500 mg Documented by: - Objective Vital Signs: Vital Signs Temperature 97.7 F 01/12/20 00:49 Pulse Rate 78 01/12/20 00:49 Respiratory Rate 18 01/12/20 00:49 Blood Pressure 138/71 01/12/20 00:49 O2 Sat by Pulse Oximetry (%) 90 L 01/11/20 21:00 Constitutional: Yes: Well Nourished, Calm Eyes: Yes: WNL HENT: Yes: WNL Neck: Yes: WNL Cardiovascular: Yes: Regular Rate and Rhythm, S1, S2 Respiratory: Yes: Rales (bibaailar crackles) Gastrointestinal: Yes: Normal Bowel Sounds, Soft Extremities: Yes: WNL Edema: No Labs: INR, PTT INR 1.03 (0.83-1.09) 12/30/19 02:15 Problem List - Problems (1) COVID-19 Code(s): U07.1 - COVID POSITIVE (2) Diabetes mellitus Code(s): E11.9 - TYPE 2 DIABETES MELLITUS WITHOUT COMPLICATIONS (3) Elevated troponin Code(s): R79.89 - OTHER SPECIFIED ABNORMAL FINDINGS OF BLOOD CHEMISTRY (4) Osteoarthritis Code(s): M19.90 - UNSPECIFIED OSTEOARTHRITIS, UNSPECIFIED SITE (5) Presence of stent in coronary artery in patient with coronary artery disease Code(s): I25.10 - ATHSCL HEART DISEASE OF [place] CORONARY ARTERY W/O ANG PCTRS; Z95.5 - PRESENCE OF CORONARY ANGIOPLASTY IMPLANT AND GRAFT (6) Rhabdomyolysis Code(s): M62.82 - RHABDOMYOLYSIS (7) Syncope Code(s): R55 - SYNCOPE AND COLLAPSE Qualifiers: Syncope type: unspecified Qualified Code(s): R55 - Syncope and collapse Assessment/Plan IMP COVID 19 SYNCOPE + TROPONIN NSTEMI MILD-MODERATE GLOBAL HYPOKINESIS LEFT VENTRICLE HTN ASHD S/P STENT DM ? COVID ENCEPHALOPATHY PLAN SUPPLEMENTAL O2 AC INHALED BRONCHODILATORS TREND INFLAMMATORY MARKERS S/P REMDESIVIR PREDNISONE DR ROSS Problem List - Problems (1) COVID-19 Code(s): U07.1 - COVID POSITIVE (2) Diabetes mellitus Code(s): E11.9 - TYPE 2 DIABETES MELLITUS WITHOUT COMPLICATIONS (3) Elevated troponin Code(s): R79.89 - OTHER SPECIFIED ABNORMAL FINDINGS OF BLOOD CHEMISTRY (4) Osteoarthritis Code(s): M19.90 - UNSPECIFIED OSTEOARTHRITIS, UNSPECIFIED SITE (5) Presence of stent in coronary artery in patient with coronary artery disease Code(s): I25.10 - ATHSCL HEART DISEASE OF [place] CORONARY ARTERY W/O ANG PCTRS; Z95.5 - PRESENCE OF CORONARY ANGIOPLASTY IMPLANT AND GRAFT (6) Rhabdomyolysis Code(s): M62.82 - RHABDOMYOLYSIS (7) Syncope Code(s): R55 - SYNCOPE AND COLLAPSE Qualifiers: Syncope type: unspecified Qualified Code(s): R55 - Syncope and collapse
[2020-01-12 07:33] LABS: BLOOD UREA NITROGEN 22.5 mg/dL (7-18); CALCIUM 9.1 mg/dL (8.5-10.1); CREATININE 0.8 mg/dL (0.55-1.3); MAGNESIUM 2.3 mg/dL (1.8-2.4); PHOSPHOROUS 2.6 mg/dL (2.5-4.9); POTASSIUM 3.6 mmol/L (3.5-5.1)
[2020-01-12 07:56] LABS: HEMATOCRIT 44.7 % (32.4-45.2); HEMOGLOBIN 14.9 GM/dL (10.7-15.3); MCH 28.8 pg (25.7-33.7); MCHC 33.3 g/dl (32.0-36.0); MEAN CELL VOLUME 86.3 fl (80-96); PLATELET COUNT 319 K/MM3 (134-434); RBC 5.18 M/mm3 (3.60-5.2); WHITE BLOOD COUNT 13.6 K/mm3 (4.0-10.0)
[2020-01-12] MEDS: LISINOPRIL 5 MG TABLET PO SCH (09:58)
[2020-01-12] MEDS: predniSONE 20 MG TABLET (UD) PO SCH (09:58)
[2020-01-12] MEDS: RANOLAZINE E.R. 500 MG TABLET (FP) PO SCH ×2 (09:58→22:00)
[2020-01-12] MEDS: metoPROLOL SUCCINATE 25 MG TAB.SR.24H (FP) PO SCH (09:58)
[2020-01-12] MEDS: ASPIRIN 81 MG CHEWABLE TABLETS PO SCH (09:58)
[2020-01-12] MEDS: CALCIUM 500MG/VIT-D 200 UNITS COMBO TABLET (FP) PO SCH ×2 (09:58→22:00)
[2020-01-12] MEDS: CLOPIDOGREL BISULFATE 75 MG TABLET (FP) PO SCH (09:58)
[2020-01-12] MEDS: BUDESONIDE/FORMETEROL FUMARATE 160/4.5 mcg INHALER IH SCH ×2 (09:59→22:00)
[2020-01-12] MEDS: ENOXAPARIN NA (PORCINE) 40 MG/0.4 ML DISP.SYRIN SQ SCH (09:59)
[2020-01-12] MEDS: NAPH,MB-DB/K PH,MBDB POWDER PACKET PO SCH ×2 (09:59→22:00)
--- NOTE | 2020-01-12 10:30 | PN ---
Progress Note, Physician Chief Complaint: NSTEMI COVID 19 Syncope History of Present Illness: Previous notes and events reviewed awake and alert NAD denies chest pain or palpitations denies SOB, dyspnea, or cough COVID-19 positive pending negative test to be discharged to SNF Sats in low 90s on RA - Current Medication List Current Medications: Active Medications Acetaminophen (Tylenol -) 650 mg PO Q6H PRN PRN Reason: FEVER Last Admin: 01/02/20 00:46 Dose: 650 mg Documented by: Aspirin (Asa -) 81 mg PO DAILY [facility] Last Admin: 01/12/20 09:58 Dose: 81 mg Documented by: Atorvastatin Calcium (Lipitor -) 40 mg PO HS [facility] Last Admin: 01/11/20 21:54 Dose: 40 mg Documented by: Budesonide/Formoterol Fumarate (Symbicort 160/4.5mcg -) 2 puff IH BID [facility] Last Admin: 01/12/20 09:59 Dose: 2 puff Documented by: Calcium Carbonate/Cholecalciferol (Os-Bebo 500+D -) 1 tab PO BID [facility] Last Admin: 01/12/20 09:58 Dose: 1 tab Documented by: Clopidogrel Bisulfate (Plavix -) 75 mg PO DAILY [facility] Last Admin: 01/12/20 09:58 Dose: 75 mg Documented by: Enoxaparin Sodium (Lovenox -) 40 mg SQ DAILY [facility] Last Admin: 01/12/20 09:59 Dose: 40 mg Documented by: Insulin Aspart (Novolog Vial Sliding Scale -) 1 vial SQ [facility]; Protocol Last Admin: 01/12/20 06:50 Dose: Not Given Documented by: Lisinopril (Prinivil) 5 mg PO DAILY [facility] Last Admin: 01/12/20 09:58 Dose: 5 mg Documented by: Metoprolol Succinate (Toprol Xl -) 25 mg PO DAILY [facility] Last Admin: 01/12/20 09:58 Dose: 25 mg Documented by: Potassium Phos/Sodium Phos (Phos-Nak Packet -) 1 packet PO BID [facility] Last Admin: 01/12/20 09:59 Dose: 1 packet Documented by: Prednisone (Deltasone -) 40 mg PO DAILY [facility] Last Admin: 01/12/20 09:58 Dose: 40 mg Documented by: Ranolazine (Ranexa -) 500 mg PO BID [facility] Last Admin: 01/12/20 09:58 Dose: 500 mg Documented by: - Objective Vital Signs: Vital Signs Temperature 97.3 F L 01/12/20 09:00 Pulse Rate 85 01/12/20 09:00 Respiratory Rate 20 01/12/20 09:00 Blood Pressure 146/79 01/12/20 09:00 O2 Sat by Pulse Oximetry (%) 93 L 01/12/20 09:00 Constitutional: Yes: No Distress, Calm, Obese Eyes: Yes: Conjunctiva Clear HENT: Yes: Atraumatic Cardiovascular: Yes: Regular Rate and Rhythm Respiratory: Yes: Other (mild crackles) Gastrointestinal: Yes: Normal Bowel Sounds, Soft, Abdomen, Obese, Other (nontender) Genitourinary: Yes: Incontinence Musculoskeletal: Yes: Muscle Weakness Extremities: Yes: WNL Neurological: Yes: Alert Psychiatric: Yes: Alert Labs: CBC, BMP 01/12/20 06:25 01/12/20 06:25 INR, PTT INR 1.03 (0.83-1.09) 12/30/19 02:15 Problem List - Problems (1) COVID-19 Assessment/Plan: Pulmonary on board completed course of Remdesvir Prednisone Keep SpO2 >90% Pending Covid-19 pcr for d/c to snf O2 via [place] prn for SOB Chest CT scan shows diffuse groundglassinfiltrates consistent with Covid-19 pneumonitis, R basilar consilidation/atelectasis, and small pleural effusion Symbicort Lovenox for dvt ppx Code(s): U07.1 - COVID POSITIVE (2) Diabetes mellitus Assessment/Plan: [facility] Diabetic diet ISS Code(s): E11.9 - TYPE 2 DIABETES MELLITUS WITHOUT COMPLICATIONS (3) Elevated troponin Assessment/Plan: Cardiology on board Trop 4.46~2.96~2.36~2.11 Echo shows Normal LV size, mild to mod global LV hypokinesis, EF 40-45% Code(s): R79.89 - OTHER SPECIFIED ABNORMAL FINDINGS OF BLOOD CHEMISTRY (4) Fall Assessment/Plan: Neurology on board Fall precaution Head CT shows no acute mass, bleed, or fracture R knee xray shows arthritic changes but no signs of fracture or subluxation Code(s): W19.XXXA - UNSPECIFIED FALL, INITIAL ENCOUNTER Qualifiers: Encounter type: initial encounter Qualified Code(s): W19.XXXA - Unspecified fall, initial encounter (5) HTN (hypertension) Assessment/Plan: Low Na diet Lisinopril, Metropolol monitor BP q4h Code(s): I10 - ESSENTIAL (PRIMARY) HYPERTENSION (6) Syncope Assessment/Plan: Neurology on board Cardiology on board Fall precaution Head CT shows no acute mass, bleed, or fracture R knee xray shows arthritic changes but no signs of fracture or subluxation Code(s): R55 - SYNCOPE AND COLLAPSE Qualifiers: Syncope type: unspecified Qualified Code(s): R55 - Syncope and collapse Assessment/Plan see problem list dvt ppx d/c to SNF if COVID-19 neg
[2020-01-12] MEDS ORDERED: INSULIN (NOVOLOG) ASPART 100 UNITS/ML 10ML VIAL ONE (11:48)
[2020-01-12] MEDS: ATORVASTATIN CA 40 MG TABLET (FP) PO SCH (22:00)
[2020-01-13] MEDS: INSULIN SLIDING SCALE (NOVOLOG) 1 VIAL SQ SCH ×4 (06:36→23:00)
[2020-01-13 06:58] LABS: HEMATOCRIT 45.4 % (32.4-45.2); HEMOGLOBIN 14.9 GM/dL (10.7-15.3); MCH 28.4 pg (25.7-33.7); MCHC 32.7 g/dl (32.0-36.0); MEAN CELL VOLUME 86.8 fl (80-96); PLATELET COUNT 304 K/MM3 (134-434); RBC 5.23 M/mm3 (3.60-5.2); RDW 15.6 % (11.6-15.6); WHITE BLOOD COUNT 15.2 K/mm3 (4.0-10.0)
[2020-01-13 07:26] LABS: ALBUMIN 2.6 g/dl (3.4-5.0); BLOOD UREA NITROGEN 24.6 mg/dL (7-18); CALCIUM 8.8 mg/dL (8.5-10.1)
[2020-01-13 07:31] LABS: BILIRUBIN,TOTAL 1.5 mg/dL (0.2-1); CREATININE 0.9 mg/dL (0.55-1.3); TOT PROT 5.9 g/dl (6.4-8.2)
--- NOTE | 2020-01-13 09:42 | PN ---
Progress Note, Physician Chief Complaint: NSTEMI COVID 19 Syncope History of Present Illness: Previous notes and events reviewed awake and alert NAD denies chest pain or palpitations denies SOB, dyspnea, or cough COVID-19 positive-has been 48hrs repeat ordered pending negative test to be discharged to Sats in low 90s on RA - Current Medication List Current Medications: Active Medications Acetaminophen (Tylenol -) 650 mg PO Q6H PRN PRN Reason: FEVER Last Admin: 01/02/20 00:46 Dose: 650 mg Documented by: Ascorbic Acid (Vitamin C -) 500 mg PO DAILY [facility] Aspirin (Asa -) 81 mg PO DAILY [facility] Last Admin: 01/12/20 09:58 Dose: 81 mg Documented by: Atorvastatin Calcium (Lipitor -) 40 mg PO HS [facility] Last Admin: 01/12/20 22:00 Dose: 40 mg Documented by: Budesonide/Formoterol Fumarate (Symbicort 160/4.5mcg -) 2 puff IH BID [facility] Last Admin: 01/12/20 22:00 Dose: 2 puff Documented by: Calcium Carbonate/Cholecalciferol (Os-Bebo 500+D -) 1 tab PO BID [facility] Last Admin: 01/12/20 22:00 Dose: 1 tab Documented by: Clopidogrel Bisulfate (Plavix -) 75 mg PO DAILY [facility] Last Admin: 01/12/20 09:58 Dose: 75 mg Documented by: Enoxaparin Sodium (Lovenox -) 40 mg SQ DAILY [facility] Last Admin: 01/12/20 09:59 Dose: 40 mg Documented by: Insulin Aspart (Novolog Vial Sliding Scale -) 1 vial SQ [facility]; Protocol Last Admin: 01/13/20 06:36 Dose: 2 units Documented by: Lisinopril (Prinivil) 5 mg PO DAILY [facility] Last Admin: 01/12/20 09:58 Dose: 5 mg Documented by: Metoprolol Succinate (Toprol Xl -) 25 mg PO DAILY [facility] Last Admin: 01/12/20 09:58 Dose: 25 mg Documented by: Potassium Phos/Sodium Phos (Phos-Nak Packet -) 1 packet PO BID [facility] Last Admin: 01/12/20 22:00 Dose: 1 packet Documented by: Prednisone (Deltasone -) 40 mg PO DAILY [facility] Last Admin: 01/12/20 09:58 Dose: 40 mg Documented by: Ranolazine (Ranexa -) 500 mg PO BID [facility] Last Admin: 01/12/20 22:00 Dose: 500 mg Documented by: - Objective Vital Signs: Vital Signs Temperature 97.4 F L 01/13/20 05:00 Pulse Rate 80 01/13/20 05:00 Respiratory Rate 01/13/20 05:00 Blood Pressure 124/73 01/13/20 05:00 O2 Sat by Pulse Oximetry (%) 92 L 01/13/20 05:00 Constitutional: Yes: No Distress, Calm, Obese Eyes: Yes: Conjunctiva Clear HENT: Yes: Atraumatic Cardiovascular: Yes: Regular Rate and Rhythm Respiratory: Yes: Regular, Diminished Gastrointestinal: Yes: Normal Bowel Sounds, Soft, Abdomen, Obese, Other (non tender) Genitourinary: Yes: Incontinence Musculoskeletal: Yes: Muscle Weakness Extremities: Yes: WNL Neurological: Yes: Alert Psychiatric: Yes: Alert Labs: CBC, BMP 01/13/20 06:09 01/13/20 06:09 INR, PTT INR 1.03 (0.83-1.09) 12/30/19 02:15 Problem List - Problems (1) COVID-19 Assessment/Plan: Pulmonary on board completed course of Remdesvir Prednisone Keep SpO2 >90% Pending Covid-19 pcr for d/c to snf-repeat Covid-19 PCR ordered O2 via [place] prn for SOB Chest CT scan shows diffuse groundglassinfiltrates consistent with Covid-19 pneumonitis, R basilar consilidation/atelectasis, and small pleural effusion Symbicort Lovenox for dvt ppx Code(s): U07.1 - COVID POSITIVE (2) Diabetes mellitus Assessment/Plan: [facility] Diabetic diet ISS Code(s): E11.9 - TYPE 2 DIABETES MELLITUS WITHOUT COMPLICATIONS (3) Elevated troponin Assessment/Plan: Cardiology on board Trop 4.46~2.96~2.36~2.11 Echo shows Normal LV size, mild to mod global LV hypokinesis, EF 40-45% Code(s): R79.89 - OTHER SPECIFIED ABNORMAL FINDINGS OF BLOOD CHEMISTRY (4) Fall Assessment/Plan: Neurology on board Fall precaution Head CT shows no acute mass, bleed, or fracture R knee xray shows arthritic changes but no signs of fracture or subluxation Code(s): W19.XXXA - UNSPECIFIED FALL, INITIAL ENCOUNTER Qualifiers: Encounter type: initial encounter Qualified Code(s): W19.XXXA - Unspecified fall, initial encounter (5) HTN (hypertension) Assessment/Plan: Low Na diet Lisinopril, Metropolol monitor BP q4h Code(s): I10 - ESSENTIAL (PRIMARY) HYPERTENSION (6) Syncope Assessment/Plan: Neurology on board Cardiology on board Fall precaution Head CT shows no acute mass, bleed, or fracture R knee xray shows arthritic changes but no signs of fracture or subluxation Code(s): R55 - SYNCOPE AND COLLAPSE Qualifiers: Syncope type: unspecified Qualified Code(s): R55 - Syncope and collapse Assessment/Plan see problem list dvt ppx d/c to SNF if COVID-19 neg
[2020-01-13] MEDS: predniSONE 20 MG TABLET (UD) PO SCH (10:34)
[2020-01-13] MEDS: metoPROLOL SUCCINATE 25 MG TAB.SR.24H (FP) PO SCH (10:34)
[2020-01-13] MEDS: LISINOPRIL 5 MG TABLET PO SCH (10:34)
[2020-01-13] MEDS: RANOLAZINE E.R. 500 MG TABLET (FP) PO SCH ×2 (10:34→22:50)
[2020-01-13] MEDS: CALCIUM 500MG/VIT-D 200 UNITS COMBO TABLET (FP) PO SCH ×2 (10:34→22:50)
[2020-01-13] MEDS: ASCORBIC ACID 500 MG TABLET (FP) PO SCH (10:34)
[2020-01-13] MEDS: BUDESONIDE/FORMETEROL FUMARATE 160/4.5 mcg INHALER IH SCH ×2 (10:34→22:51)
[2020-01-13] MEDS: ASPIRIN 81 MG CHEWABLE TABLETS PO SCH (10:34)
[2020-01-13] MEDS: ENOXAPARIN NA (PORCINE) 40 MG/0.4 ML DISP.SYRIN SQ SCH (10:35)
[2020-01-13] MEDS: NAPH,MB-DB/K PH,MBDB POWDER PACKET PO SCH ×2 (10:35→22:50)
[2020-01-13] MEDS: CLOPIDOGREL BISULFATE 75 MG TABLET (FP) PO SCH (10:35)
--- NOTE | 2020-01-13 11:27 | PN ---
Progress Note (short form) - Note Progress Note: PULMONARY Saturating well on room air. No fevers recorded. Vital Signs Period Temp Pulse Resp BP Sys/Carroll Pulse Ox Last 24 Hr 97.4 F-98.7 F 80-96 20-20 124-150/73-87 92-96 Gen: NAD at rest Heart: RRR Lung: decreased breath sounds at the bases Abd: soft, nontender Ext: no edema CBC, BMP 01/13/20 06:09 01/13/20 06:09 Active Medications Acetaminophen (Tylenol -) 650 mg PO Q6H PRN PRN Reason: FEVER Last Admin: 01/02/20 00:46 Dose: 650 mg Documented by: Ascorbic Acid (Vitamin C -) 500 mg PO DAILY [facility] Last Admin: 01/13/20 10:34 Dose: 500 mg Documented by: Aspirin (Asa -) 81 mg PO DAILY [facility] Last Admin: 01/13/20 10:34 Dose: 81 mg Documented by: Atorvastatin Calcium (Lipitor -) 40 mg PO HS [facility] Last Admin: 01/12/20 22:00 Dose: 40 mg Documented by: Budesonide/Formoterol Fumarate (Symbicort 160/4.5mcg -) 2 puff IH BID [facility] Last Admin: 01/13/20 10:34 Dose: 2 puff Documented by: Calcium Carbonate/Cholecalciferol (Os-Bebo 500+D -) 1 tab PO BID [facility] Last Admin: 01/13/20 10:34 Dose: 1 tab Documented by: Clopidogrel Bisulfate (Plavix -) 75 mg PO DAILY [facility] Last Admin: 01/13/20 10:35 Dose: 75 mg Documented by: Enoxaparin Sodium (Lovenox -) 40 mg SQ DAILY [facility] Last Admin: 01/13/20 10:35 Dose: 40 mg Documented by: Insulin Aspart (Novolog Vial Sliding Scale -) 1 vial SQ [facility]; Protocol Last Admin: 01/13/20 06:36 Dose: 2 units Documented by: Lisinopril (Prinivil) 5 mg PO DAILY [facility] Last Admin: 01/13/20 10:34 Dose: 5 mg Documented by: Metoprolol Succinate (Toprol Xl -) 25 mg PO DAILY [facility] Last Admin: 01/13/20 10:34 Dose: 25 mg Documented by: Potassium Phos/Sodium Phos (Phos-Nak Packet -) 1 packet PO BID [facility] Last Admin: 01/13/20 10:35 Dose: 1 packet Documented by: Prednisone (Deltasone -) 40 mg PO DAILY [facility] Last Admin: 01/13/20 10:34 Dose: 40 mg Documented by: Ranolazine (Ranexa -) 500 mg PO BID [facility] Last Admin: 01/13/20 10:34 Dose: 500 mg Documented by: A/P COVID19 Pneumonitis Hypoxia CAD Acute NSTEMI LV Systolic Dysfunction DM HTN - completed remdesivir - O2 to keep SpO2 >90% - continue steroids - on empiric antibiotics - trend inflammatory markers - DVT prophylaxis - d/c planning
[2020-01-13] MEDS: ATORVASTATIN CA 40 MG TABLET (FP) PO SCH (22:50)
[2020-01-14] MEDS: INSULIN SLIDING SCALE (NOVOLOG) 1 VIAL SQ SCH ×4 (06:26→22:21)
[2020-01-14 07:33] LABS: HEMATOCRIT 43.7 % (32.4-45.2); HEMOGLOBIN 14.5 GM/dL (10.7-15.3); MCH 28.5 pg (25.7-33.7); MCHC 33.1 g/dl (32.0-36.0); MEAN CELL VOLUME 86.2 fl (80-96); PLATELET COUNT 288 K/MM3 (134-434); RBC 5.07 M/mm3 (3.60-5.2); RDW 15.2 % (11.6-15.6); WHITE BLOOD COUNT 14.9 K/mm3 (4.0-10.0)
--- NOTE | 2020-01-14 07:53 | PN ---
Progress Note, Physician Chief Complaint: AWAKE FEELING BETTER C/O DYSPHAGIA - Current Medication List Current Medications: Active Medications Acetaminophen (Tylenol -) 650 mg PO Q6H PRN PRN Reason: FEVER Last Admin: 01/02/20 00:46 Dose: 650 mg Documented by: Ascorbic Acid (Vitamin C -) 500 mg PO DAILY [facility] Last Admin: 01/13/20 10:34 Dose: 500 mg Documented by: Aspirin (Asa -) 81 mg PO DAILY [facility] Last Admin: 01/13/20 10:34 Dose: 81 mg Documented by: Atorvastatin Calcium (Lipitor -) 40 mg PO HS [facility] Last Admin: 01/13/20 22:50 Dose: 40 mg Documented by: Budesonide/Formoterol Fumarate (Symbicort 160/4.5mcg -) 2 puff IH BID [facility] Last Admin: 01/13/20 22:51 Dose: 2 puff Documented by: Calcium Carbonate/Cholecalciferol (Os-Bebo 500+D -) 1 tab PO BID [facility] Last Admin: 01/13/20 22:50 Dose: 1 tab Documented by: Clopidogrel Bisulfate (Plavix -) 75 mg PO DAILY [facility] Last Admin: 01/13/20 10:35 Dose: 75 mg Documented by: Insulin Aspart (Novolog Vial Sliding Scale -) 1 vial SQ [facility]; Protocol Last Admin: 01/14/20 06:26 Dose: 2 units Documented by: Lisinopril (Prinivil) 5 mg PO DAILY [facility] Last Admin: 01/13/20 10:34 Dose: 5 mg Documented by: Metoprolol Succinate (Toprol Xl -) 25 mg PO DAILY [facility] Last Admin: 01/13/20 10:34 Dose: 25 mg Documented by: Potassium Phos/Sodium Phos (Phos-Nak Packet -) 1 packet PO BID [facility] Last Admin: 01/13/20 22:50 Dose: 1 packet Documented by: Prednisone (Deltasone -) 40 mg PO DAILY [facility] Last Admin: 01/13/20 10:34 Dose: 40 mg Documented by: Ranolazine (Ranexa -) 500 mg PO BID [facility] Last Admin: 01/13/20 22:50 Dose: 500 mg Documented by: - Objective Vital Signs: Vital Signs Temperature 98.1 F 01/14/20 05:47 Pulse Rate 72 01/14/20 05:47 Respiratory Rate 20 01/14/20 05:47 Blood Pressure 156/82 01/14/20 05:47 O2 Sat by Pulse Oximetry (%) 92 L 01/13/20 22:00 Constitutional: Yes: Mild Distress HENT: Yes: Other ([place]) Cardiovascular: Yes: Pulse Irregular Respiratory: Yes: On Nasal O2 Gastrointestinal: Yes: Soft, Abdomen, Obese Genitourinary: Yes: Incontinence Neurological: Yes: Confusion Psychiatric: Yes: Other Labs: INR, PTT INR 1.03 (0.83-1.09) 12/30/19 02:15 Problem List - Problems (1) COVID-19 Code(s): U07.1 - COVID POSITIVE (2) Diabetes mellitus Code(s): E11.9 - TYPE 2 DIABETES MELLITUS WITHOUT COMPLICATIONS (3) Elevated troponin Code(s): R79.89 - OTHER SPECIFIED ABNORMAL FINDINGS OF BLOOD CHEMISTRY (4) Fall Code(s): W19.XXXA - UNSPECIFIED FALL, INITIAL ENCOUNTER Qualifiers: Encounter type: initial encounter Qualified Code(s): W19.XXXA - Unspecified fall, initial encounter (5) HTN (hypertension) Code(s): I10 - ESSENTIAL (PRIMARY) HYPERTENSION (6) Osteoarthritis Code(s): M19.90 - UNSPECIFIED OSTEOARTHRITIS, UNSPECIFIED SITE (7) Presence of stent in coronary artery in patient with coronary artery disease Code(s): I25.10 - ATHSCL HEART DISEASE OF [place] CORONARY ARTERY W/O ANG PCTRS; Z95.5 - PRESENCE OF CORONARY ANGIOPLASTY IMPLANT AND GRAFT Assessment/Plan AWAITING COVID-19 NEGATIVE BEFORE SENDING TO SNF DIFLUCAN AND NYSTATIN FOR ORAL THRUSH TAPER STEROIDS 02 SUPPORT OOB TO CHAIR
[2020-01-14 07:54] LABS: ALBUMIN 2.5 g/dl (3.4-5.0); BLOOD UREA NITROGEN 29.3 mg/dL (7-18); CALCIUM 8.4 mg/dL (8.5-10.1)
[2020-01-14 07:57] LABS: BILIRUBIN,TOTAL 1.4 mg/dL (0.2-1); CREATININE 0.9 mg/dL (0.55-1.3); TOT PROT 5.5 g/dl (6.4-8.2)
[2020-01-14] MEDS: ASPIRIN 81 MG CHEWABLE TABLETS PO SCH (10:09)
[2020-01-14] MEDS: predniSONE 20 MG TABLET (UD) PO SCH (10:09)
[2020-01-14] MEDS: RANOLAZINE E.R. 500 MG TABLET (FP) PO SCH ×2 (10:09→21:56)
[2020-01-14] MEDS: CLOPIDOGREL BISULFATE 75 MG TABLET (FP) PO SCH (10:09)
[2020-01-14] MEDS: LISINOPRIL 5 MG TABLET PO SCH (10:09)
[2020-01-14] MEDS: CALCIUM 500MG/VIT-D 200 UNITS COMBO TABLET (FP) PO SCH ×2 (10:09→21:57)
[2020-01-14] MEDS: metoPROLOL SUCCINATE 25 MG TAB.SR.24H (FP) PO SCH (10:09)
[2020-01-14] MEDS: NAPH,MB-DB/K PH,MBDB POWDER PACKET PO SCH ×2 (10:09→21:57)
[2020-01-14] MEDS: ASCORBIC ACID 500 MG TABLET (FP) PO SCH (10:10)
[2020-01-14] MEDS: BUDESONIDE/FORMETEROL FUMARATE 160/4.5 mcg INHALER IH SCH ×2 (10:10→22:23)
[2020-01-14] MEDS ORDERED: FLUCONAZOLE 100 MG TABLET (UD) PO ONE (10:45)
[2020-01-14] MEDS: NYSTATIN 500,000 UNITS/5 ML SUSPENSION PO SCH ×2 (11:41→17:20)
[2020-01-14] MEDS: APIXABAN 2.5 MG TABLET PO SCH ×2 (11:41→21:57)
--- NOTE | 2020-01-14 11:44 | PN ---
Progress Note (short form) - Note Progress Note: PULMONARY Saturating well on room air. No fevers recorded. Vital Signs Period Temp Pulse Resp BP Sys/Carroll Pulse Ox Last 24 Hr 97.5 F-98.4 F 72-87 20-20 118-156/61-86 90-96 Gen: NAD at rest Heart: RRR Lung: decreased breath sounds at the bases Abd: soft, nontender Ext: no edema CBC, BMP 01/14/20 06:30 01/14/20 06:30 Active Medications Acetaminophen (Tylenol -) 650 mg PO Q6H PRN PRN Reason: FEVER Last Admin: 01/02/20 00:46 Dose: 650 mg Documented by: Apixaban (Eliquis -) 2.5 mg PO BID [facility] Ascorbic Acid (Vitamin C -) 500 mg PO DAILY [facility] Last Admin: 01/14/20 10:10 Dose: 500 mg Documented by: Aspirin (Asa -) 81 mg PO DAILY [facility] Last Admin: 01/14/20 10:09 Dose: 81 mg Documented by: Atorvastatin Calcium (Lipitor -) 40 mg PO HS [facility] Last Admin: 01/13/20 22:50 Dose: 40 mg Documented by: Budesonide/Formoterol Fumarate (Symbicort 160/4.5mcg -) 2 puff IH BID [facility] Last Admin: 01/14/20 10:10 Dose: 2 puff Documented by: Calcium Carbonate/Cholecalciferol (Os-Bebo 500+D -) 1 tab PO BID [facility] Last Admin: 01/14/20 10:09 Dose: 1 tab Documented by: Clopidogrel Bisulfate (Plavix -) 75 mg PO DAILY [facility] Last Admin: 01/14/20 10:09 Dose: 75 mg Documented by: Insulin Aspart (Novolog Vial Sliding Scale -) 1 vial SQ [facility]; Protocol Last Admin: 01/14/20 06:26 Dose: 2 units Documented by: Lisinopril (Prinivil) 5 mg PO DAILY [facility] Last Admin: 01/14/20 10:09 Dose: 5 mg Documented by: Metoprolol Succinate (Toprol Xl -) 25 mg PO DAILY [facility] Last Admin: 01/14/20 10:09 Dose: 25 mg Documented by: Nystatin (Nystatin Oral Suspension -) 500,000 units PO Q6HPO [facility] Potassium Phos/Sodium Phos (Phos-Nak Packet -) 1 packet PO BID [facility] Last Admin: 01/14/20 10:09 Dose: 1 packet Documented by: Prednisone (Deltasone -) 40 mg PO DAILY [facility] Last Admin: 01/14/20 10:09 Dose: 40 mg Documented by: Ranolazine (Ranexa -) 500 mg PO BID [facility] Last Admin: 01/14/20 10:09 Dose: 500 mg Documented by: A/P COVID19 Pneumonitis Hypoxia CAD Acute NSTEMI LV Systolic Dysfunction DM HTN - completed remdesivir - O2 to keep SpO2 >90% - prednisone taper - on empiric antibiotics - trend inflammatory markers - DVT prophylaxis - d/c planning
[2020-01-14] MEDS: ATORVASTATIN CA 40 MG TABLET (FP) PO SCH (21:57)
[2020-01-15] MEDS: NYSTATIN 500,000 UNITS/5 ML SUSPENSION PO SCH ×4 (00:32→17:08)
[2020-01-15] MEDS: INSULIN SLIDING SCALE (NOVOLOG) 1 VIAL SQ SCH ×4 (06:33→21:04)
--- NOTE | 2020-01-15 07:33 | PN ---
Progress Note, Physician Chief Complaint: AWAKE MORE ALERT DETECTED COVID X 4 DENIES SOB/CP - Current Medication List Current Medications: Active Medications Acetaminophen (Tylenol -) 650 mg PO Q6H PRN PRN Reason: FEVER Last Admin: 01/02/20 00:46 Dose: 650 mg Documented by: Apixaban (Eliquis -) 2.5 mg PO BID [facility] Last Admin: 01/14/20 21:57 Dose: 2.5 mg Documented by: Ascorbic Acid (Vitamin C -) 500 mg PO DAILY [facility] Last Admin: 01/14/20 10:10 Dose: 500 mg Documented by: Aspirin (Asa -) 81 mg PO DAILY [facility] Last Admin: 01/14/20 10:09 Dose: 81 mg Documented by: Atorvastatin Calcium (Lipitor -) 40 mg PO HS [facility] Last Admin: 01/14/20 21:57 Dose: 40 mg Documented by: Budesonide/Formoterol Fumarate (Symbicort 160/4.5mcg -) 2 puff IH BID [facility] Last Admin: 01/14/20 22:23 Dose: 2 puff Documented by: Calcium Carbonate/Cholecalciferol (Os-Bebo 500+D -) 1 tab PO BID [facility] Last Admin: 01/14/20 21:57 Dose: 1 tab Documented by: Clopidogrel Bisulfate (Plavix -) 75 mg PO DAILY [facility] Last Admin: 01/14/20 10:09 Dose: 75 mg Documented by: Insulin Aspart (Novolog Vial Sliding Scale -) 1 vial SQ [facility]; Protocol Last Admin: 01/15/20 06:33 Dose: 2 units Documented by: Lisinopril (Prinivil) 5 mg PO DAILY [facility] Last Admin: 01/14/20 10:09 Dose: 5 mg Documented by: Metoprolol Succinate (Toprol Xl -) 25 mg PO DAILY [facility] Last Admin: 01/14/20 10:09 Dose: 25 mg Documented by: Nystatin (Nystatin Oral Suspension -) 500,000 units PO Q6HPO [facility] Last Admin: 01/15/20 06:32 Dose: 500,000 units Documented by: Potassium Phos/Sodium Phos (Phos-Nak Packet -) 1 packet PO BID [facility] Last Admin: 01/14/20 21:57 Dose: 1 packet Documented by: Prednisone (Deltasone -) 20 mg PO DAILY [facility] Ranolazine (Ranexa -) 500 mg PO BID [facility] Last Admin: 01/14/20 21:56 Dose: 500 mg Documented by: - Objective Vital Signs: Vital Signs Temperature 97.8 F 01/15/20 05:00 Pulse Rate 74 01/15/20 05:00 Respiratory Rate 01/15/20 05:00 Blood Pressure 136/94 01/15/20 05:00 O2 Sat by Pulse Oximetry (%) 91 L 01/14/20 21:00 Constitutional: Yes: No Distress Cardiovascular: Yes: Pulse Irregular Respiratory: Yes: Diminished Gastrointestinal: Yes: Soft Genitourinary: Yes: Incontinence Musculoskeletal: Yes: Muscle Weakness Edema: No Integumentary: Yes: WNL Wound/Incision: Yes: Clean/Dry Neurological: Yes: Pre-Existing Deficit Labs: CBC, BMP 01/14/20 06:30 01/14/20 06:30 INR, PTT INR 1.03 (0.83-1.09) 12/30/19 02:15 Problem List - Problems (1) COVID-19 Code(s): U07.1 - COVID POSITIVE (2) Diabetes mellitus Code(s): E11.9 - TYPE 2 DIABETES MELLITUS WITHOUT COMPLICATIONS (3) Elevated troponin Code(s): R79.89 - OTHER SPECIFIED ABNORMAL FINDINGS OF BLOOD CHEMISTRY (4) Fall Code(s): W19.XXXA - UNSPECIFIED FALL, INITIAL ENCOUNTER Qualifiers: Encounter type: initial encounter Qualified Code(s): W19.XXXA - Unspecified fall, initial encounter (5) HTN (hypertension) Code(s): I10 - ESSENTIAL (PRIMARY) HYPERTENSION (6) Osteoarthritis Code(s): M19.90 - UNSPECIFIED OSTEOARTHRITIS, UNSPECIFIED SITE (7) Presence of stent in coronary artery in patient with coronary artery disease Code(s): I25.10 - ATHSCL HEART DISEASE OF [place] CORONARY ARTERY W/O ANG PCTRS; Z95.5 - PRESENCE OF CORONARY ANGIOPLASTY IMPLANT AND GRAFT Assessment/Plan AWAITING COVID-19 NEGATIVE BEFORE SENDING TO SNF [facility]LUC[facility] AND [facility]STATIN FOR ORAL THRUSH TAPER STEROIDS 02 SUPPORT OOB TO CHAIR
[2020-01-15] MEDS: CALCIUM 500MG/VIT-D 200 UNITS COMBO TABLET (FP) PO SCH ×2 (09:47→21:04)
[2020-01-15] MEDS: metoPROLOL SUCCINATE 25 MG TAB.SR.24H (FP) PO SCH (09:47)
[2020-01-15] MEDS: CLOPIDOGREL BISULFATE 75 MG TABLET (FP) PO SCH (09:47)
[2020-01-15] MEDS: ASCORBIC ACID 500 MG TABLET (FP) PO SCH (09:47)
[2020-01-15] MEDS: LISINOPRIL 5 MG TABLET PO SCH (09:47)
[2020-01-15] MEDS: RANOLAZINE E.R. 500 MG TABLET (FP) PO SCH ×2 (09:47→21:05)
[2020-01-15] MEDS: APIXABAN 2.5 MG TABLET PO SCH ×2 (09:47→21:03)
[2020-01-15] MEDS: NAPH,MB-DB/K PH,MBDB POWDER PACKET PO SCH ×2 (09:47→21:03)
[2020-01-15] MEDS: ASPIRIN 81 MG CHEWABLE TABLETS PO SCH (09:48)
[2020-01-15] MEDS: BUDESONIDE/FORMETEROL FUMARATE 160/4.5 mcg INHALER IH SCH ×2 (09:48→21:05)
[2020-01-15] MEDS: predniSONE 20 MG TABLET (UD) PO SCH (09:48)
[2020-01-15] MEDS ORDERED: ACETAMINOPHEN 325 MG TABLET (FP) PO PRN (11:34)
--- NOTE | 2020-01-15 16:42 | PN ---
Progress Note, Physician History of Present Illness: pulmonary alert,no distress,-sob - Current Medication List Current Medications: Active Medications Acetaminophen (Tylenol -) 650 mg PO Q6H PRN PRN Reason: FEVER Apixaban (Eliquis -) 2.5 mg PO BID [facility] Last Admin: 01/15/20 09:47 Dose: 2.5 mg Documented by: Ascorbic Acid (Vitamin C -) 500 mg PO DAILY [facility] Last Admin: 01/15/20 09:47 Dose: 500 mg Documented by: Aspirin (Asa -) 81 mg PO DAILY [facility] Atorvastatin Calcium (Lipitor -) 40 mg PO HS [facility] Budesonide/Formoterol Fumarate (Symbicort 160/4.5mcg -) 2 puff IH BID [facility] Calcium Carbonate/Cholecalciferol (Os-Bebo 500+D -) 1 tab PO BID [facility] Clopidogrel Bisulfate (Plavix -) 75 mg PO DAILY [facility] Insulin Aspart (Novolog Vial Sliding Scale -) 1 vial SQ [facility]; Protocol Last Admin: 01/15/20 16:38 Dose: 8 units Documented by: Lisinopril (Prinivil) 5 mg PO DAILY [facility] Metoprolol Succinate (Toprol Xl -) 25 mg PO DAILY [facility] Nystatin (Nystatin Oral Suspension -) 500,000 units PO Q6HPO [facility] Last Admin: 01/15/20 11:16 Dose: 500,000 units Documented by: Potassium Phos/Sodium Phos (Phos-Nak Packet -) 1 packet PO BID [facility] Last Admin: 01/15/20 09:47 Dose: 1 packet Documented by: Prednisone (Deltasone -) 20 mg PO DAILY [facility] Last Admin: 01/15/20 09:48 Dose: 20 mg Documented by: Ranolazine (Ranexa -) 500 mg PO BID [facility] - Objective Vital Signs: Vital Signs Temperature 97.8 F 01/15/20 14:00 Pulse Rate 70 01/15/20 14:00 Respiratory Rate 18 01/15/20 09:00 Blood Pressure 148/70 01/15/20 14:00 O2 Sat by Pulse Oximetry (%) 91 L 01/15/20 14:00 Constitutional: Yes: Well Nourished, Calm Eyes: Yes: WNL HENT: Yes: WNL Neck: Yes: WNL Cardiovascular: Yes: Regular Rate and Rhythm, S1, S2 Respiratory: Yes: Diminished Gastrointestinal: Yes: Normal Bowel Sounds, Soft Extremities: Yes: WNL Edema: No Labs: CBC, BMP Problem List - Problems (1) COVID-19 Code(s): U07.1 - COVID POSITIVE (2) Diabetes mellitus Code(s): E11.9 - TYPE 2 DIABETES MELLITUS WITHOUT COMPLICATIONS (3) Elevated troponin Code(s): R79.89 - OTHER SPECIFIED ABNORMAL FINDINGS OF BLOOD CHEMISTRY (4) Osteoarthritis Code(s): M19.90 - UNSPECIFIED OSTEOARTHRITIS, UNSPECIFIED SITE (5) Presence of stent in coronary artery in patient with coronary artery disease Code(s): I25.10 - ATHSCL HEART DISEASE OF [place] CORONARY ARTERY W/O ANG PCTRS; Z95.5 - PRESENCE OF CORONARY ANGIOPLASTY IMPLANT AND GRAFT (6) Rhabdomyolysis Code(s): M62.82 - RHABDOMYOLYSIS (7) Syncope Code(s): R55 - SYNCOPE AND COLLAPSE Qualifiers: Syncope type: unspecified Qualified Code(s): R55 - Syncope and collapse Assessment/Plan IMP COVID 19 SYNCOPE + TROPONIN NSTEMI MILD-MODERATE GLOBAL HYPOKINESIS LEFT VENTRICLE HTN ASHD S/P STENT DM ? COVID ENCEPHALOPATHY PLAN SUPPLEMENTAL O2 AC INHALED BRONCHODILATORS TREND INFLAMMATORY MARKERS S/P REMDESIVIR PREDNISONE REPEAT COVID ABS DR ROSS Problem List - Problems (1) COVID-19 Code(s): U07.1 - COVID POSITIVE (2) Diabetes mellitus Code(s): E11.9 - TYPE 2 DIABETES MELLITUS WITHOUT COMPLICATIONS (3) Elevated troponin Code(s): R79.89 - OTHER SPECIFIED ABNORMAL FINDINGS OF BLOOD CHEMISTRY (4) Osteoarthritis Code(s): M19.90 - UNSPECIFIED OSTEOARTHRITIS, UNSPECIFIED SITE (5) Presence of stent in coronary artery in patient with coronary artery disease Code(s): I25.10 - ATHSCL HEART DISEASE OF [place] CORONARY ARTERY W/O ANG PCTRS; Z95.5 - PRESENCE OF CORONARY ANGIOPLASTY IMPLANT AND GRAFT (6) Rhabdomyolysis Code(s): M62.82 - RHABDOMYOLYSIS (7) Syncope Code(s): R55 - SYNCOPE AND COLLAPSE Qualifiers: Syncope type: unspecified Qualified Code(s): R55 - Syncope and collapse
[2020-01-15] MEDS: ATORVASTATIN CA 40 MG TABLET (FP) PO SCH (21:04)
[2020-01-15] MEDS ORDERED: INSULIN (NOVOLOG) ASPART 100 UNITS/ML 10ML VIAL ONE (21:11)
[2020-01-16] MEDS: NYSTATIN 500,000 UNITS/5 ML SUSPENSION PO SCH ×4 (05:37→17:18)
[2020-01-16] MEDS: INSULIN SLIDING SCALE (NOVOLOG) 1 VIAL SQ SCH ×4 (06:02→22:07)
[2020-01-16 07:02] LABS: HEMATOCRIT 48.8 % (32.4-45.2); HEMOGLOBIN 15.8 GM/dL (10.7-15.3); MCH 28.3 pg (25.7-33.7); MCHC 32.4 g/dl (32.0-36.0); MEAN CELL VOLUME 87.3 fl (80-96); PLATELET COUNT 343 K/MM3 (134-434); RBC 5.59 M/mm3 (3.60-5.2); RDW 15.1 % (11.6-15.6); WHITE BLOOD COUNT 20.1 K/mm3 (4.0-10.0)
--- NOTE | 2020-01-16 07:14 | PN ---
Progress Note, Physician - Current Medication List Current Medications: Active Medications Acetaminophen (Tylenol -) 650 mg PO Q6H PRN PRN Reason: FEVER Apixaban (Eliquis -) 2.5 mg PO BID [facility] Last Admin: 01/15/20 21:03 Dose: 2.5 mg Documented by: Ascorbic Acid (Vitamin C -) 500 mg PO DAILY [facility] Last Admin: 01/15/20 09:47 Dose: 500 mg Documented by: Aspirin (Asa -) 81 mg PO DAILY [facility] Atorvastatin Calcium (Lipitor -) 40 mg PO HS [facility] Last Admin: 01/15/20 21:04 Dose: 40 mg Documented by: Budesonide/Formoterol Fumarate (Symbicort 160/4.5mcg -) 2 puff IH BID [facility] Last Admin: 01/15/20 21:05 Dose: 2 puff Documented by: Calcium Carbonate/Cholecalciferol (Os-Bebo 500+D -) 1 tab PO BID [facility] Last Admin: 01/15/20 21:04 Dose: 1 tab Documented by: Clopidogrel Bisulfate (Plavix -) 75 mg PO DAILY [facility] Insulin Aspart (Novolog Vial Sliding Scale -) [address] [facility]; Protocol Last Admin: 01/16/20 06:02 Dose: Not Given Documented by: Lisinopril (Prinivil) 5 mg PO DAILY [facility] Metoprolol Succinate (Toprol Xl -) 25 mg PO DAILY [facility] Nystatin (Nystatin Oral Suspension -) 500,000 units PO Q6HPO [facility] Last Admin: 01/16/20 05:37 Dose: 500,000 units Documented by: Potassium Phos/Sodium Phos (Phos-Nak Packet -) 1 packet PO BID [facility] Last Admin: 01/15/20 21:03 Dose: 1 packet Documented by: Prednisone (Deltasone -) 20 mg PO DAILY [facility] Last Admin: 01/15/20 09:48 Dose: 20 mg Documented by: Ranolazine (Ranexa -) 500 mg PO BID [facility] Last Admin: 01/15/20 21:05 Dose: 500 mg Documented by: - Objective Vital Signs: Vital Signs Temperature 97.2 F L 01/16/20 05:38 Pulse Rate 99 H 01/16/20 05:38 Respiratory Rate 20 01/16/20 05:38 Blood Pressure 148/54 L 01/16/20 05:38 O2 Sat by Pulse Oximetry (%) 91 L 01/16/20 05:38 Labs: CBC, BMP 01/16/20 06:30 INR, PTT INR 1.03 (0.83-1.09) 12/30/19 02:15 Problem List - Problems (1) COVID-19 Code(s): U07.1 - COVID POSITIVE (2) Diabetes mellitus Code(s): E11.9 - TYPE 2 DIABETES MELLITUS WITHOUT COMPLICATIONS (3) Elevated troponin Code(s): R79.89 - OTHER SPECIFIED ABNORMAL FINDINGS OF BLOOD CHEMISTRY (4) Osteoarthritis Code(s): M19.90 - UNSPECIFIED OSTEOARTHRITIS, UNSPECIFIED SITE (5) Presence of stent in coronary artery in patient with coronary artery disease Code(s): I25.10 - ATHSCL HEART DISEASE OF [place] CORONARY ARTERY W/O ANG PCTRS; Z95.5 - PRESENCE OF CORONARY ANGIOPLASTY IMPLANT AND GRAFT (6) Rhabdomyolysis Code(s): M62.82 - RHABDOMYOLYSIS (7) Syncope Code(s): R55 - SYNCOPE AND COLLAPSE Qualifiers: Syncope type: unspecified Qualified Code(s): R55 - Syncope and collapse Assessment/Plan IMP COVID 19 SYNCOPE + TROPONIN NSTEMI MILD-MODERATE GLOBAL HYPOKINESIS LEFT VENTRICLE HTN ASHD S/P STENT DM ? COVID ENCEPHALOPATHY PLAN SUPPLEMENTAL O2 AC INHALED BRONCHODILATORS TREND INFLAMMATORY MARKERS S/P REMDESIVIR PREDNISONE REPEAT COVID ABS DR ROSS Problem List - Problems (1) COVID-19 Code(s): U07.1 - COVID POSITIVE (2) Diabetes mellitus Code(s): E11.9 - TYPE 2 DIABETES MELLITUS WITHOUT COMPLICATIONS (3) Elevated troponin Code(s): R79.89 - OTHER SPECIFIED ABNORMAL FINDINGS OF BLOOD CHEMISTRY (4) Osteoarthritis Code(s): M19.90 - UNSPECIFIED OSTEOARTHRITIS, UNSPECIFIED SITE (5) Presence of stent in coronary artery in patient with coronary artery disease Code(s): I25.10 - ATHSCL HEART DISEASE OF [place] CORONARY ARTERY W/O ANG PCTRS; Z95.5 - PRESENCE OF CORONARY ANGIOPLASTY IMPLANT AND GRAFT (6) Rhabdomyolysis Code(s): M62.82 - RHABDOMYOLYSIS (7) Syncope Code(s): R55 - SYNCOPE AND COLLAPSE Qualifiers: Syncope type: unspecified Qualified Code(s): R55 - Syncope and collapse
[2020-01-16 07:25] LABS: ALBUMIN 2.8 g/dl (3.4-5.0); BILIRUBIN,TOTAL 1.3 mg/dL (0.2-1); BLOOD UREA NITROGEN 28.4 mg/dL (7-18); CALCIUM 8.7 mg/dL (8.5-10.1); POTASSIUM 4.3 mmol/L (3.5-5.1); TOT PROT 6.3 g/dl (6.4-8.2)
--- NOTE | 2020-01-16 07:58 | PN ---
Progress Note, Physician Chief Complaint: AWAKE MORE ALERT DENIES FEVERS AND CHILLS BREATHING BETTER - Current Medication List Current Medications: Active Medications Acetaminophen (Tylenol -) 650 mg PO Q6H PRN PRN Reason: FEVER Apixaban (Eliquis -) 2.5 mg PO BID [facility] Last Admin: 01/15/20 21:03 Dose: 2.5 mg Documented by: Ascorbic Acid (Vitamin C -) 500 mg PO DAILY [facility] Last Admin: 01/15/20 09:47 Dose: 500 mg Documented by: Aspirin (Asa -) 81 mg PO DAILY [facility] Atorvastatin Calcium (Lipitor -) 40 mg PO HS [facility] Last Admin: 01/15/20 21:04 Dose: 40 mg Documented by: Budesonide/Formoterol Fumarate (Symbicort 160/4.5mcg -) 2 puff IH BID [facility] Last Admin: 01/15/20 21:05 Dose: 2 puff Documented by: Calcium Carbonate/Cholecalciferol (Os-Bebo 500+D -) 1 tab PO BID [facility] Last Admin: 01/15/20 21:04 Dose: 1 tab Documented by: Clopidogrel Bisulfate (Plavix -) 75 mg PO DAILY [facility] Insulin Aspart (Novolog Vial Sliding Scale -) 1 vial SQ ACHS [facility]; Protocol Last Admin: 01/16/20 06:02 Dose: Not Given Documented by: Lisinopril (Prinivil) 5 mg PO DAILY [facility] Metoprolol Succinate (Toprol Xl -) 25 mg PO DAILY [facility] Nystatin (Nystatin Oral Suspension -) 500,000 units PO Q6HPO [facility] Last Admin: 01/16/20 05:37 Dose: 500,000 units Documented by: Potassium Phos/Sodium Phos (Phos-Nak Packet -) 1 packet PO BID [facility] Last Admin: 01/15/20 21:03 Dose: 1 packet Documented by: Prednisone (Deltasone -) 20 mg PO DAILY [facility] Last Admin: 01/15/20 09:48 Dose: 20 mg Documented by: Ranolazine (Ranexa -) 500 mg PO BID [facility] Last Admin: 01/15/20 21:05 Dose: 500 mg Documented by: - Objective Vital Signs: Vital Signs Temperature 97.4 F L 01/16/20 07:49 Pulse Rate 92 H 01/16/20 07:49 Respiratory Rate 20 01/16/20 07:49 Blood Pressure 119/52 L 01/16/20 07:49 O2 Sat by Pulse Oximetry (%) 94 L 01/16/20 07:49 Constitutional: Yes: No Distress Cardiovascular: Yes: Pulse Irregular Respiratory: Yes: CTA Bilaterally Gastrointestinal: Yes: Abdomen, Obese Genitourinary: Yes: Incontinence Extremities: Yes: WNL Edema: Yes Edema: LLE: 1+, RLE: 1+ Peripheral Pulses WNL: Yes Integumentary: Yes: WNL Wound/Incision: Yes: Clean/Dry Neurological: Yes: Pre-Existing Deficit ...Motor Strength: LLE, RLE Psychiatric: Yes: WNL Labs: CBC, BMP 01/16/20 06:30 01/16/20 06:30 INR, PTT INR 1.03 (0.83-1.09) 12/30/19 02:15 Problem List - Problems (1) COVID-19 Code(s): U07.1 - COVID POSITIVE (2) Diabetes mellitus Code(s): E11.9 - TYPE 2 DIABETES MELLITUS WITHOUT COMPLICATIONS (3) Elevated troponin Code(s): R79.89 - OTHER SPECIFIED ABNORMAL FINDINGS OF BLOOD CHEMISTRY (4) Fall Code(s): W19.XXXA - UNSPECIFIED FALL, INITIAL ENCOUNTER Qualifiers: Encounter type: initial encounter Qualified Code(s): W19.XXXA - Unspecified fall, initial encounter (5) HTN (hypertension) Code(s): I10 - ESSENTIAL (PRIMARY) HYPERTENSION (6) Osteoarthritis Code(s): M19.90 - UNSPECIFIED OSTEOARTHRITIS, UNSPECIFIED SITE (7) Presence of stent in coronary artery in patient with coronary artery disease Code(s): I25.10 - ATHSCL HEART DISEASE OF [place] CORONARY ARTERY W/O ANG PCTRS; Z95.5 - PRESENCE OF CORONARY ANGIOPLASTY IMPLANT AND GRAFT Assessment/Plan AWAITING COVID-19 NEGATIVE BEFORE SENDING TO [facility] FOR ORAL THRUSH TAPER STEROIDS 02 SUPPORT OOB TO CHAIR
[2020-01-16] MEDS: RANOLAZINE E.R. 500 MG TABLET (FP) PO SCH ×2 (09:41→22:07)
[2020-01-16] MEDS: CALCIUM 500MG/VIT-D 200 UNITS COMBO TABLET (FP) PO SCH ×2 (09:41→22:07)
[2020-01-16] MEDS: APIXABAN 2.5 MG TABLET PO SCH ×2 (09:42→22:07)
[2020-01-16] MEDS: predniSONE 20 MG TABLET (UD) PO SCH (09:42)
[2020-01-16] MEDS: ASPIRIN 81 MG CHEWABLE TABLETS PO SCH (09:42)
[2020-01-16] MEDS: CLOPIDOGREL BISULFATE 75 MG TABLET (FP) PO SCH (09:42)
[2020-01-16] MEDS: ASCORBIC ACID 500 MG TABLET (FP) PO SCH (09:42)
[2020-01-16] MEDS: NAPH,MB-DB/K PH,MBDB POWDER PACKET PO SCH ×2 (09:43→22:08)
[2020-01-16] MEDS: metoPROLOL SUCCINATE 25 MG TAB.SR.24H (FP) PO SCH (09:43)
[2020-01-16] MEDS: LISINOPRIL 5 MG TABLET PO SCH (09:43)
[2020-01-16] MEDS: BUDESONIDE/FORMETEROL FUMARATE 160/4.5 mcg INHALER IH SCH ×2 (12:11→23:16)
[2020-01-16] MEDS: NYSTATIN/TRIAMCINOLONE TOPICAL CREAM 15 GM TUBE TP SCH (12:11)
--- NOTE | 2020-01-16 12:50 | PN ---
Progress Note (short form) - Note Progress Note: PULMONARY Saturating well on room air. No fevers recorded. Last swab still positive. Vital Signs Period Temp Pulse Resp BP Sys/Carroll Pulse Ox Last 24 Hr 97.1 F-97.9 F 70-99 18-20 119-148/52-83 91-94 Gen: NAD at rest Heart: RRR Lung: decreased breath sounds at the bases Abd: soft, nontender Ext: no edema CBC, BMP 01/16/20 06:30 01/16/20 06:30 Active Medications Acetaminophen (Tylenol -) 650 mg PO Q6H PRN PRN Reason: FEVER Apixaban (Eliquis -) 2.5 mg PO BID [facility] Last Admin: 01/16/20 09:42 Dose: 2.5 mg Documented by: Ascorbic Acid (Vitamin C -) 500 mg PO DAILY [facility] Last Admin: 01/16/20 09:42 Dose: 500 mg Documented by: Aspirin (Asa -) 81 mg PO DAILY [facility] Last Admin: 01/16/20 09:42 Dose: 81 mg Documented by: Atorvastatin Calcium (Lipitor -) 40 mg PO HS [facility] Last Admin: 01/15/20 21:04 Dose: 40 mg Documented by: Budesonide/Formoterol Fumarate (Symbicort 160/4.5mcg -) 2 puff IH BID [facility] Last Admin: 01/16/20 12:11 Dose: Not Given Documented by: Calcium Carbonate/Cholecalciferol (Os-Bebo 500+D -) 1 tab PO BID [facility] Last Admin: 01/16/20 09:41 Dose: 1 tab Documented by: Clopidogrel Bisulfate (Plavix -) 75 mg PO DAILY [facility] Last Admin: 01/16/20 09:42 Dose: 75 mg Documented by: Insulin Aspart (Novolog Vial Sliding Scale -) 1 vial SQ [facility]; Protocol Last Admin: 01/16/20 12:27 Dose: 4 units Documented by: Lisinopril (Prinivil) 5 mg PO DAILY [facility] Last Admin: 01/16/20 09:43 Dose: 5 mg Documented by: Metoprolol Succinate (Toprol Xl -) 25 mg PO DAILY [facility] Last Admin: 01/16/20 09:43 Dose: 25 mg Documented by: Nystatin (Nystatin Oral Suspension -) 500,000 units PO Q6HPO [facility] Last Admin: 01/16/20 12:27 Dose: 500,000 units Documented by: Nystatin/Triamcinolone Acetonide (Mycolog Ii Cream -) 2 applic TP BID [facility] Last Admin: 01/16/20 12:11 Dose: Not Given Documented by: Potassium Phos/Sodium Phos (Phos-Nak Packet -) 1 packet PO BID [facility] Last Admin: 01/16/20 09:43 Dose: 1 packet Documented by: Prednisone (Deltasone -) 20 mg PO DAILY [facility] Last Admin: 01/16/20 09:42 Dose: 20 mg Documented by: Ranolazine (Ranexa -) 500 mg PO BID [facility] Last Admin: 01/16/20 09:41 Dose: 500 mg Documented by: A/P COVID19 Pneumonitis Hypoxia CAD Acute NSTEMI LV Systolic Dysfunction DM HTN - completed remdesivir - O2 to keep SpO2 >90% - prednisone taper - completed empiric antibiotics - DVT prophylaxis - d/c planning
[2020-01-16] MEDS: ATORVASTATIN CA 40 MG TABLET (FP) PO SCH (22:07)
[2020-01-17] MEDS: NYSTATIN 500,000 UNITS/5 ML SUSPENSION PO SCH ×4 (01:48→18:11)
[2020-01-17] MEDS: INSULIN SLIDING SCALE (NOVOLOG) 1 VIAL SQ SCH ×4 (06:27→22:54)
[2020-01-17] MEDS: NYSTATIN/TRIAMCINOLONE TOPICAL CREAM 15 GM TUBE TP SCH ×3 (06:45→22:56)
--- NOTE | 2020-01-17 08:11 | PN ---
Progress Note, Physician - Current Medication List Current Medications: Active Medications Acetaminophen (Tylenol -) 650 mg PO Q6H PRN PRN Reason: FEVER Apixaban (Eliquis -) 2.5 mg PO BID [facility] Last Admin: 01/16/20 22:07 Dose: 2.5 mg Documented by: Ascorbic Acid (Vitamin C -) 500 mg PO DAILY [facility] Last Admin: 01/16/20 09:42 Dose: 500 mg Documented by: Aspirin (Asa -) 81 mg PO DAILY [facility] Last Admin: 01/16/20 09:42 Dose: 81 mg Documented by: Atorvastatin Calcium (Lipitor -) 40 mg PO HS [facility] Last Admin: 01/16/20 22:07 Dose: 40 mg Documented by: Budesonide/Formoterol Fumarate (Symbicort 160/4.5mcg -) 2 puff IH BID [facility] Last Admin: 01/16/20 23:16 Dose: 2 puff Documented by: Calcium Carbonate/Cholecalciferol (Os-Bebo 500+D -) 1 tab PO BID [facility] Last Admin: 01/16/20 22:07 Dose: 1 tab Documented by: Clopidogrel Bisulfate (Plavix -) 75 mg PO DAILY [facility] Last Admin: 01/16/20 09:42 Dose: 75 mg Documented by: Insulin Aspart (Novolog Vial Sliding Scale -) 1 vial SQ [facility]; Protocol Last Admin: 01/17/20 06:27 Dose: 2 units Documented by: Lisinopril (Prinivil) 5 mg PO DAILY [facility] Last Admin: 01/16/20 09:43 Dose: 5 mg Documented by: Metoprolol Succinate (Toprol Xl -) 25 mg PO DAILY [facility] Last Admin: 01/16/20 09:43 Dose: 25 mg Documented by: Nystatin (Nystatin Oral Suspension -) 500,000 units PO Q6HPO [facility] Last Admin: 01/17/20 06:28 Dose: 500,000 units Documented by: Nystatin/Triamcinolone Acetonide (Mycolog Ii Cream -) 2 applic TP BID [facility] Last Admin: 01/17/20 06:45 Dose: Not Given Documented by: Potassium Phos/Sodium Phos (Phos-Nak Packet -) 1 packet PO BID [facility] Last Admin: 01/16/20 22:08 Dose: 1 packet Documented by: Prednisone (Deltasone -) 20 mg PO DAILY [facility] Last Admin: 01/16/20 09:42 Dose: 20 mg Documented by: Ranolazine (Ranexa -) 500 mg PO BID [facility] Last Admin: 01/16/20 22:07 Dose: 500 mg Documented by: - Objective Vital Signs: Vital Signs Temperature 98.2 F 01/17/20 06:00 Pulse Rate 88 01/17/20 06:00 Respiratory Rate 18 01/17/20 06:00 Blood Pressure 105/69 01/17/20 06:00 O2 Sat by Pulse Oximetry (%) 92 L 01/17/20 06:00 Cardiovascular: Yes: S1, S2 Respiratory: Yes: Regular, CTA Bilaterally Gastrointestinal: Yes: Normal Bowel Sounds, Soft Labs: CBC, BMP 01/16/20 06:30 01/16/20 06:30 INR, PTT INR 1.03 (0.83-1.09) 12/30/19 02:15 Assessment/Plan - Problems (1) COVID-19 Assessment/Plan: Pulmonary on board completed course of Remdesvir Prednisone Keep SpO2 >90% Pending Covid-19 pcr for d/c to snf-repeat Covid-19 PCR ordered O2 via [place] prn for SOB Chest CT scan shows diffuse groundglassinfiltrates consistent with Covid-19 pneumonitis, R basilar consilidation/atelectasis, and small pleural effusion Symbicort Lovenox for dvt ppx Code(s): U07.1 - COVID POSITIVE (2) Diabetes mellitus Assessment/Plan: BG ACHS Diabetic diet ISS Code(s): E11.9 - TYPE 2 DIABETES MELLITUS WITHOUT COMPLICATIONS (3) Elevated troponin Assessment/Plan: Cardiology on board Trop 4.46~2.96~2.36~2.11 Echo shows Normal LV size, mild to mod global LV hypokinesis, EF 40-45% Code(s): R79.89 - OTHER SPECIFIED ABNORMAL FINDINGS OF BLOOD CHEMISTRY (4) Fall Assessment/Plan: Neurology on board Fall precaution Head CT shows no acute mass, bleed, or fracture R knee xray shows arthritic changes but no signs of fracture or subluxation Code(s): W19.XXXA - UNSPECIFIED FALL, INITIAL ENCOUNTER Qualifiers: Encounter type: initial encounter Qualified Code(s): W19.XXXA - Unspecified fall, initial encounter (5) HTN (hypertension) Assessment/Plan: Low Na diet Lisinopril, Metropolol monitor BP q4h Code(s): I10 - ESSENTIAL (PRIMARY) HYPERTENSION (6) Syncope Assessment/Plan: Neurology on board Cardiology on board Fall precaution Head CT shows no acute mass, bleed, or fracture R knee xray shows arthritic changes but no signs of fracture or subluxation Code(s): R55 - SYNCOPE AND COLLAPSE Qualifiers: Syncope type: unspecified Qualified Code(s): R55 - Syncope and collapse await neg covid then snf
[2020-01-17] MEDS: predniSONE 20 MG TABLET (UD) PO SCH (11:42)
[2020-01-17] MEDS: CALCIUM 500MG/VIT-D 200 UNITS COMBO TABLET (FP) PO SCH ×2 (11:43→22:51)
[2020-01-17] MEDS: APIXABAN 2.5 MG TABLET PO SCH ×2 (11:43→22:51)
[2020-01-17] MEDS: ASPIRIN 81 MG CHEWABLE TABLETS PO SCH (11:43)
[2020-01-17] MEDS: CLOPIDOGREL BISULFATE 75 MG TABLET (FP) PO SCH (11:43)
[2020-01-17] MEDS: ASCORBIC ACID 500 MG TABLET (FP) PO SCH (11:44)
[2020-01-17] MEDS: RANOLAZINE E.R. 500 MG TABLET (FP) PO SCH ×2 (11:44→22:51)
[2020-01-17] MEDS: LISINOPRIL 5 MG TABLET PO SCH (11:44)
[2020-01-17] MEDS: metoPROLOL SUCCINATE 25 MG TAB.SR.24H (FP) PO SCH (11:44)
[2020-01-17] MEDS: NAPH,MB-DB/K PH,MBDB POWDER PACKET PO SCH ×2 (11:44→22:51)
--- NOTE | 2020-01-17 12:49 | PN ---
Progress Note (short form) - Note Progress Note: NAD on room air. No fevers recorded. No acute events overnight. Swab remains positive. Intake & Output 01/14/20 01/15/20 01/16/20 01/17/20 23:59 23:59 23:59 23:59 Intake Total 0 680 320 120 Output Total 600 Balance 0 80 320 120 Last Vital Signs Temp Pulse Resp BP Pulse Ox 98.2 F 88 18 105/69 92 L 01/17/20 06:00 01/17/20 06:00 01/17/20 06:00 01/17/20 06:00 01/17/20 06:00 Active Medications Acetaminophen (Tylenol -) 650 mg PO Q6H PRN PRN Reason: FEVER Apixaban (Eliquis -) 2.5 mg PO BID [facility] Last Admin: 01/17/20 11:43 Dose: 2.5 mg Documented by: Ascorbic Acid (Vitamin C -) 500 mg PO DAILY [facility] Last Admin: 01/17/20 11:44 Dose: 500 mg Documented by: Aspirin (Asa -) 81 mg PO DAILY [facility] Last Admin: 01/17/20 11:43 Dose: 81 mg Documented by: Atorvastatin Calcium (Lipitor -) 40 mg PO HS [facility] Last Admin: 01/16/20 22:07 Dose: 40 mg Documented by: Budesonide/Formoterol Fumarate (Symbicort 160/4.5mcg -) 2 puff IH BID [facility] Last Admin: 01/16/20 23:16 Dose: 2 puff Documented by: Calcium Carbonate/Cholecalciferol (Os-Bebo 500+D -) 1 tab PO BID [facility] Last Admin: 01/17/20 11:43 Dose: 1 tab Documented by: Clopidogrel Bisulfate (Plavix -) 75 mg PO DAILY [facility] Last Admin: 01/17/20 11:43 Dose: 75 mg Documented by: Insulin Aspart (Novolog Vial Sliding Scale -) 1 vial SQ ACHS [facility]; Protocol Last Admin: 01/17/20 06:27 Dose: 2 units Documented by: Lisinopril (Prinivil) 5 mg PO DAILY [facility] Last Admin: 01/17/20 11:44 Dose: 5 mg Documented by: Metoprolol Succinate (Toprol Xl -) 25 mg PO DAILY [facility] Last Admin: 01/17/20 11:44 Dose: 25 mg Documented by: Nystatin (Nystatin Oral Suspension -) 500,000 units PO Q6HPO [facility] Last Admin: 01/17/20 11:43 Dose: 500,000 units Documented by: Nystatin/Triamcinolone Acetonide (Mycolog Ii Cream -) 2 applic TP BID [facility] Last Admin: 01/17/20 06:45 Dose: Not Given Documented by: Potassium Phos/Sodium Phos (Phos-Nak Packet -) 1 packet PO BID [facility] Last Admin: 01/17/20 11:44 Dose: 1 packet Documented by: Prednisone (Deltasone -) 20 mg PO DAILY [facility] Last Admin: 01/17/20 11:42 Dose: 20 mg Documented by: Ranolazine (Ranexa -) 500 mg PO BID [facility] Last Admin: 01/17/20 11:44 Dose: 500 mg Documented by: Gen: NAD at rest Heart: RRR Lung: decreased breath sounds at the bases Abd: soft, nontender Ext: no edema Laboratory Results - last 24 hr 01/16/20 01/16/20 01/17/20 17:20 22:05 06:27 POC Glucometer 255 128 151 01/17/20 11:59 POC Glucometer 200 A/P COVID19 Pneumonitis Hypoxia CAD Acute NSTEMI LV Systolic Dysfunction DM HTN - S/P Remdesivir - DC planning after Negative swab Dr Rodriguez
[2020-01-17] MEDS: BUDESONIDE/FORMETEROL FUMARATE 160/4.5 mcg INHALER IH SCH ×2 (16:03→22:56)
[2020-01-17] MEDS ORDERED: INSULIN (NOVOLOG) ASPART 100 UNITS/ML 10ML VIAL ONE (22:02)
[2020-01-17] MEDS: ATORVASTATIN CA 40 MG TABLET (FP) PO SCH (22:51)
[2020-01-18] MEDS: NYSTATIN 500,000 UNITS/5 ML SUSPENSION PO SCH ×3 (00:28→12:27)
[2020-01-18] MEDS: INSULIN SLIDING SCALE (NOVOLOG) 1 VIAL SQ SCH ×2 (06:57→12:24)
[2020-01-18 07:03] VITALS: TEMP 97.5
--- NOTE | 2020-01-18 08:41 | PN ---
Progress Note, Physician - Current Medication List Current Medications: Active Medications Acetaminophen (Tylenol -) 650 mg PO Q6H PRN PRN Reason: FEVER Apixaban (Eliquis -) 2.5 mg PO BID [facility] Last Admin: 01/17/20 22:51 Dose: 2.5 mg Documented by: Ascorbic Acid (Vitamin C -) 500 mg PO DAILY [facility] Last Admin: 01/17/20 11:44 Dose: 500 mg Documented by: Aspirin (Asa -) 81 mg PO DAILY [facility] Last Admin: 01/17/20 11:43 Dose: 81 mg Documented by: Atorvastatin Calcium (Lipitor -) 40 mg PO HS [facility] Last Admin: 01/17/20 22:51 Dose: 40 mg Documented by: Budesonide/Formoterol Fumarate (Symbicort 160/4.5mcg -) 2 puff IH BID [facility] Last Admin: 01/17/20 22:56 Dose: 2 puff Documented by: Calcium Carbonate/Cholecalciferol (Os-Bebo 500+D -) 1 tab PO BID [facility] Last Admin: 01/17/20 22:51 Dose: 1 tab Documented by: Clopidogrel Bisulfate (Plavix -) 75 mg PO DAILY [facility] Last Admin: 01/17/20 11:43 Dose: 75 mg Documented by: Insulin Aspart (Novolog Vial Sliding Scale -) 1 vial SQ [facility]; Protocol Last Admin: 01/18/20 06:57 Dose: 2 units Documented by: Lisinopril (Prinivil) 5 mg PO DAILY [facility] Last Admin: 01/17/20 11:44 Dose: 5 mg Documented by: Metoprolol Succinate (Toprol Xl -) 25 mg PO DAILY [facility] Last Admin: 01/17/20 11:44 Dose: 25 mg Documented by: Nystatin (Nystatin Oral Suspension -) 500,000 units PO Q6HPO [facility] Last Admin: 01/18/20 06:58 Dose: 500,000 units Documented by: Nystatin/Triamcinolone Acetonide (Mycolog Ii Cream -) 2 applic TP BID [facility] Last Admin: 01/17/20 22:56 Dose: 2 applic Documented by: Potassium Phos/Sodium Phos (Phos-Nak Packet -) 1 packet PO BID [facility] Last Admin: 01/17/20 22:51 Dose: 1 packet Documented by: Prednisone (Deltasone -) 20 mg PO DAILY [facility] Last Admin: 01/17/20 11:42 Dose: 20 mg Documented by: Ranolazine (Ranexa -) 500 mg PO BID [facility] Last Admin: 01/17/20 22:51 Dose: 500 mg Documented by: - Objective Vital Signs: Vital Signs Temperature 97.5 F L 01/18/20 06:00 Pulse Rate 80 01/18/20 06:00 Respiratory Rate 20 01/18/20 06:00 Blood Pressure 123/74 01/18/20 06:00 O2 Sat by Pulse Oximetry (%) 95 01/18/20 06:00 Cardiovascular: Yes: S1, S2 Respiratory: Yes: Regular, CTA Bilaterally Gastrointestinal: Yes: Normal Bowel Sounds, Soft Labs: CBC, BMP 01/16/20 06:30 01/16/20 06:30 INR, PTT INR 1.03 (0.83-1.09) 12/30/19 02:15 Assessment/Plan - Problems (1) COVID-19 Assessment/Plan: Pulmonary on board completed course of Remdesvir Prednisone Keep SpO2 >90% Pending Covid-19 pcr for d/c to snf-repeat Covid-19 PCR ordered O2 via NC prn for SOB Chest CT scan shows diffuse groundglassinfiltrates consistent with Covid-19 pneumonitis, R basilar consilidation/atelectasis, and small pleural effusion Symbicort Lovenox for dvt ppx Code(s): U07.1 - COVID POSITIVE (2) Diabetes mellitus Assessment/Plan: BG ACHS Diabetic diet ISS Code(s): E11.9 - TYPE 2 DIABETES MELLITUS WITHOUT COMPLICATIONS (3) Elevated troponin Assessment/Plan: Cardiology on board Trop 4.46~2.96~2.36~2.11 Echo shows Normal LV size, mild to mod global LV hypokinesis, EF 40-45% Code(s): R79.89 - OTHER SPECIFIED ABNORMAL FINDINGS OF BLOOD CHEMISTRY (4) Fall Assessment/Plan: Neurology on board Fall precaution Head CT shows no acute mass, bleed, or fracture R knee xray shows arthritic changes but no signs of fracture or subluxation Code(s): W19.XXXA - UNSPECIFIED FALL, INITIAL ENCOUNTER Qualifiers: Encounter type: initial encounter Qualified Code(s): W19.XXXA - Unspecified fall, initial encounter (5) HTN (hypertension) Assessment/Plan: Low Na diet Lisinopril, Metropolol monitor BP q4h Code(s): I10 - ESSENTIAL (PRIMARY) HYPERTENSION (6) Syncope Assessment/Plan: Neurology on board Cardiology on board Fall precaution Head CT shows no acute mass, bleed, or fracture R knee xray shows arthritic changes but no signs of fracture or subluxation Code(s): R55 - SYNCOPE AND COLLAPSE Qualifiers: Syncope type: unspecified Qualified Code(s): R55 - Syncope and collapse await neg covid then snf
[2020-01-18] MEDS: RANOLAZINE E.R. 500 MG TABLET (FP) PO SCH (10:10)
[2020-01-18] MEDS: predniSONE 20 MG TABLET (UD) PO SCH (10:11)
[2020-01-18] MEDS: ASPIRIN 81 MG CHEWABLE TABLETS PO SCH (10:11)
[2020-01-18] MEDS: CLOPIDOGREL BISULFATE 75 MG TABLET (FP) PO SCH (10:11)
[2020-01-18] MEDS: metoPROLOL SUCCINATE 25 MG TAB.SR.24H (FP) PO SCH (10:11)
[2020-01-18] MEDS: APIXABAN 2.5 MG TABLET PO SCH (10:11)
[2020-01-18] MEDS: CALCIUM 500MG/VIT-D 200 UNITS COMBO TABLET (FP) PO SCH (10:11)
[2020-01-18] MEDS: NAPH,MB-DB/K PH,MBDB POWDER PACKET PO SCH (10:11)
[2020-01-18] MEDS: ASCORBIC ACID 500 MG TABLET (FP) PO SCH (10:12)
[2020-01-18] MEDS: LISINOPRIL 5 MG TABLET PO SCH (10:12)
[2020-01-18] MEDS: NYSTATIN/TRIAMCINOLONE TOPICAL CREAM 15 GM TUBE TP SCH (10:13)
[2020-01-18] MEDS: BUDESONIDE/FORMETEROL FUMARATE 160/4.5 mcg INHALER IH SCH (10:13)
[2020-01-18] MEDS ORDERED: INSULIN (NOVOLOG) ASPART 100 UNITS/ML 10ML VIAL ONE (12:18)
[2020-01-18 12:42] VITALS: BP 96/50; PULSE 88
--- NOTE | 2020-01-18 12:42 | DS ---
Physical Examination Vital Signs: Vital Signs Temperature 97.5 F L 01/18/20 06:00 Pulse Rate 80 01/18/20 06:00 Respiratory Rate 20 01/18/20 09:00 Blood Pressure 123/74 01/18/20 06:00 O2 Sat by Pulse Oximetry (%) 95 01/18/20 09:00 Labs: CBC, BMP 01/16/20 06:30 01/16/20 06:30 Discharge Summary Problems reviewed: Yes Reason For Visit: SYNCOPE AND COLLAPSE, WEAKNESS, FALL Current Active Problems COVID-19 (Acute) Diabetes mellitus (Acute) Elevated troponin (Acute) Encounter for screening laboratory testing for COVID-19 virus (Acute) Fall (Acute) HTN (hypertension) (Acute) Osteoarthritis (Acute) Presence of stent in coronary artery in patient with coronary artery disease (Acute) Rhabdomyolysis (Acute) Right knee pain (Acute) Syncope (Acute) Weakness (Acute) Hospital Course: ADMITTED COVID19 POSITIVE WITH PNA, TREATED WITH IV ABX, NEBS, STEROIDS, AND CARDIAC MONITORING WILL NEED SNF FOR PULMONARY REHAB Goals: PULMONARY REHAB AND P.T. Condition: Fair - Instructions Diet, Activity, Other Instructions: [facility] FOR REHAB BOTH PULMONARY AND PHYSICAL THERAPY PREDNISONE TAPER MONITOR BGM AC Referrals: Donell Plummer MD [Primary Care Provider] - Disposition: [facility] - Home Medications Comprehensive Discharge Medication List: Ambulatory Orders Atorvastatin Ca [Lipitor] 40 mg PO HS #0 tablet 04/03/13 Calcium Carbonate/Vitamin D3 [Oyst-Bebo-D 500 mg Tablet] 1 each PO BID #0 tablet 04/03/13 Clopidogrel Bisulfate [Plavix -] 75 mg PO DAILY #0 tablet 04/03/13 Diclofenac Sodium [Voltaren] 100 gm TP BID #0 gel..gram. 04/03/13 Glimepiride 4 mg PO DAILY #0 tablet 04/03/13 Lisinopril [Prinivil] 10 mg PO DAILY #0 tablet 04/03/13 Olopatadine HCl [Pataday] 1 drop OU DAILY #0 drops 04/03/13 Omeprazole [Prilosec (RX)] 20 mg PO DAILY #0 capsule.dr 04/03/13 Ranolazine [Ranexa] 500 mg PO BID #0 tab.er.12h 04/03/13 Saxagliptin HCl/Metformin HCl [Kombiglyze Xr 5-1,000 mg Tab] 1 each PO DAILY #0 tbmp.24hr 04/03/13 Acetaminophen [Tylenol .Regular Strength -] 650 mg PO Q6H PRN tablet 01/09/20 Aspirin [ASA -] 81 mg PO DAILY tab.chew 01/09/20 Atorvastatin Ca [Lipitor] 40 mg PO HS tablet 01/09/20 Budesonide/Formeterol Fumarate [SYMBICORT 160/4.5mcg -] 2 puff IH BID inhaler 01/09/20 Enoxaparin [Lovenox -] 40 mg SQ DAILY disp.syrin 01/09/20 Insulin Sliding Scale [Novolog Vial Sliding Scale -] 1 vial SQ ACHS units 01/09/20 Lisinopril [Prinivil] 5 mg PO DAILY tablet 01/09/20 Metoprolol Succinate [Toprol XL -] 25 mg PO DAILY tab.sr.24h 01/09/20 predniSONE [Deltasone -] 40 mg PO DAILY #30 tablet 01/09/20
--- NOTE | 2020-02-03 10:07 | CON.ID ---
Consult Consult Specialty:: infectious disease Referred by:: dr sanchez Reason for Consultation:: sepsis - History of Present Illness Chief Complaint: abdominal pain, coffee ground emesis History of Present Illness: 89 yo female recently hospitalized 12/29 to 01/17 at [facility] after fall at home, found to have covid 19 pneumonitis and NSTEMI treated with remdesivir and steroids, ceftriaxone and zithromax d/rufino to SNF for rehab has had poor appetite at the [place] per daughter, not eating much at all sent to ED last night with coffeee ground emesis found to be hypotensive with abdominal pain and elevated lactic acid ct abd/pelvis done- - Past Medical History Cardio/Vascular: Yes: CAD, HTN Renal/: Yes: Renal Calculi ...: No Musculoskeletal: Yes: Osteoarthritis Endocrine: Yes: Diabetes Mellitus - Past Surgical History Past Surgical History: Yes: Cholecystectomy, , Stent - Alcohol/Substance Use Hx Alcohol Use: No History of Substance Use: reports: None - Smoking History Smoking history: Unknown if ever smoked Aproximately how many cigarettes per day: 0 - Social History ADL: Independent (ambulates w/walker) History of Recent Travel: No Home Medications - Allergies Allergies/Adverse Reactions: Allergies Allergy/AdvReac Type Severity Reaction Status Date / Time Penicillins Allergy itching Verified 02/02/20 11:30 hives - Home Medications Home Medications: Ambulatory Orders Calcium Carbonate/Vitamin D3 [Oyst-Bebo-D 500 mg Tablet] 1 each PO BID #0 tablet 04/03/13 Clopidogrel Bisulfate [Plavix -] 75 mg PO DAILY #0 tablet 04/03/13 Glimepiride 4 mg PO DAILY #0 tablet 04/03/13 Lisinopril [Prinivil] 10 mg PO DAILY #0 tablet 04/03/13 Olopatadine HCl [Pataday] 1 drop OU DAILY #0 drops 04/03/13 Omeprazole [Prilosec (RX)] 20 mg PO DAILY #0 capsule. 04/03/13 Ranolazine [Ranexa] 500 mg PO BID #0 tab.er.12h 04/03/13 Acetaminophen [Tylenol .Regular Strength -] 650 mg PO Q6H PRN tablet 01/09/20 Aspirin [ASA -] 81 mg PO DAILY tab.chew 01/09/20 Atorvastatin Ca [Lipitor] 40 mg PO HS tablet 01/09/20 Budesonide/Formeterol Fumarate [SYMBICORT 160/4.5mcg -] 2 puff IH BID inhaler 01/09/20 Enoxaparin [Lovenox -] 40 mg SQ DAILY disp.syrin 01/09/20 Insulin Sliding Scale [Novolog Vial Sliding Scale -] 1 vial SQ ACHS units 01/09/20 Metoprolol Succinate [Toprol XL -] 25 mg PO DAILY tab.sr.24h 01/09/20 predniSONE [Deltasone -] 40 mg PO DAILY #30 tablet 01/09/20 Lisinopril [Prinivil] 10 mg PO DAILY 02/02/20 Metformin HCl [Glucophage] 1,000 mg PO DAILY 02/02/20 Physical Exam Vital Signs: Vital Signs Temperature 97.5 F L 01/18/20 09:00 Pulse Rate 88 01/18/20 09:00 Respiratory Rate 20 01/18/20 09:00 Blood Pressure 96/50 L 01/18/20 09:00 O2 Sat by Pulse Oximetry (%) 90 L 01/18/20 09:00 Labs: CBC, BMP 01/16/20 06:30 01/16/20 06:30
== END 2020-01-18 14:22 | DRG 177 ==
LOC: JER 01:41 → JERBED 03:33 → OBSVTOIN 04:36 → J4W 16:53 → J8W 01-16 11:26
PROVIDERS: ADMIT Internal Medicine; ATTEND Family Medicine
DX: U07.1 COVID-19 (principal); I21.4 Non-ST elevation (NSTEMI) myocardial infarction; J12.89 Other viral pneumonia; G92 Toxic encephalopathy; M62.82 Rhabdomyolysis; B37.0 Candidal stomatitis; E11.9 Type 2 diabetes mellitus without complications; I10 Essential (primary) hypertension; R55 Syncope and collapse; R53.1 Weakness; M19.91 Primary osteoarthritis, unspecified site; I25.10 Atherosclerotic heart disease of native coronary artery without angina pectoris; R09.02 Hypoxemia; Z95.5 Presence of coronary angioplasty implant and graft
CPT/HCPCS: 36415; 70450-TC; 71045-TC-FY; 71250-TC; 72125-TC; 73560-TC-RT-FY; 80048; 80053; 80061; 81003; 82550; 82553; 82728; 82947; 82962; 83036; 83605; 83615; 83721; 83735; 84100; 84443; 84484; 85025; 85027; 85379; 85610; 85730; 86140; 86769; 86850; 86900; 86901; 87040; 87086; 93005; 93010; 93306-TC; 97116-GP; 97161-GP; 99285-25; G0378; J0131; J1644; U0003